=== PATIENT | male | born 1985 | race Caucasian/White ===

== ENCOUNTER 2018-02-08 14:38 | Emergency (ER) | payer OTHER, SELFPAY ==
[2018-02-08] MEDS ORDERED: NA CHLORIDE 0.9% 1,000 ML ONE ×2 (15:00→17:40)
[2018-02-08] MEDS ORDERED: ONDANSETRON 4 MG/2 ML VIAL ONE (15:00)
[2018-02-08 15:38] LABS: Bicarbonate 22 mEq/L (21-31); Glucose Level 101 mg/dL (65-120); Lipase 20 U/L (22-51); Potassium 3.5 mEq/L (3.6-5.0); Sodium Level 134 mEq/L (135-145)
[2018-02-08 15:44] LABS: ALT/SGPT 64 IU/L (10-60); AST/SGOT 36 IU/L (10-42); Albumin 4.4 g/dL (3.2-5.5); Alkaline Phosphatase 75 IU/L (42-121); BUN Blood Urea Nitrogen 15 mg/dL (6-20); Bilirubin Direct 0.2 mg/dL (0-0.2); Bilirubin Total 0.9 mg/dL (0.3-1.2); Protein, Total 8.1 g/dL (6.0-8.3)
[2018-02-08 16:04] LABS: Urine Blood NEGATIVE (NEG); Urine Glucose NEGATIVE (NEG); Urine Protein TRACE (NEG); Urine Specific Gravity >1.030 (1.005-1.030); Urine pH 5.5 (5.0-7.0)
[2018-02-08 16:06] LABS: Urine Bacteria <20 /HPF (NONE SEEN); Urine Culture Reflex Order NOT NEEDED; Urine RBC <5 /HPF (NONE SEEN)
[2018-02-08 16:17] LABS: Absolute Lymphocytes (CBC) 0.5 K/uL (0.7-4.9); Absolute Monocytes 0.4 K/uL (0.1-1.3); Absolute Neutrophil 10.3 K/uL (1.8-8.0); Basophils % 0.5 % (0-1.3); Eosinophils % 0.5 % (0-4.4); Hematocrit 51.4 % (39.6-49.0); Lymphocytes % 4.1 % (15.3-44.8); MCH 30.3 pg (27.0-35.0); MCV 89.1 fL (80-100); Monocytes % 3.6 % (3.3-12.3); RBC Red Blood Cell Count 5.76 M/uL (4.33-5.43)
[2018-02-08] MEDS ORDERED: MEPERIDINE HCL 25 MG/0.5 ML ONE (16:42)
--- NOTE | 2018-02-08 17:12 | RAD REPORT ---
EXAM DESCRIPTION: CT - Abdomen Pelvis W Contrast - 02/08/2018 5:03 pm CLINICAL HISTORY: Abdominal pain. Right lower quadrant and right upper quadrant pain since 2 a.m. t his morning with vomiting COMPARISON: None. TECHNIQUE: Computed axial tomography of the abdomen and pelvis was obtained. 100 cc Isovue-300 is ad ministered intravenously. Oral contrast was given. All CT scans are performed using dose optimization technique as appropriate and may include automated exposure control or mA/KV adjustment according to patient size. FINDINGS: The liver, spleen, pancreas, adrenals and kidneys appear unremarkable. The appendix is normal caliber. There is no evidence of diverticulitis A small left inguinal hernia contains fat Contrast within the esophagus probably indicates GE reflux IMPRESSION: Gastroesophageal reflux is suspected
[2018-02-08] MEDS ORDERED: MAGNE/ALUM HYDROXD 30 ML UCUP ONE (17:40)
--- NOTE | 2018-02-08 17:40 | ER ---
Nurse's Notes [facility] Name: Jose R Villela Age: 32 yrs Sex: Male : 1985 Arrival Date: 02/08/2018 Time: 14:42 Bed 7 Private MD: Jv Hurt T Diagnosis: Gastro-esophageal reflux disease;Gastroenteritis;Dehydration Presentation: 02/08 14:54 Presenting complaint: Patient states: started having V/D about 2 am this morning, tw2 tightness/abdominal pain, have taken OTC pepto, immodium, and aspirin. Transition of care: patient was not received from another setting of care. Onset of symptoms was February 08, 2018. Risk Assessment: Do you want to hurt yourself or someone else? Patient reports no desire to harm self or others. Initial Sepsis Screen: Does the patient meet any 2 criteria? No. Patient's initial sepsis screen is negative. Does the patient have a suspected source of infection? No. Patient's initial sepsis screen is negative. Care prior to arrival: None. 14:54 Method Of Arrival: Ambulatory tw2 14:54 Acuity: LUIS 3 tw2 Historical: - Allergies: 15:00 No Known Allergies; tw2 - Home Meds: 15:00 None [Active]; tw2 - PSHx: 15:00 None; tw2 - Immunization history:: Adult Immunizations up to date. - Social history:: Smoking status: Patient uses tobacco products, smokes one-half pack cigarettes per day, chewing tobacco. - Ebola Screening: : Patient denies travel to an Ebola-affected area in the 21 days before illness onset. - Family history:: not pertinent. - Hospitalizations: : No recent hospitalization is reported. Screenin:00 Abuse screen: Denies threats or abuse. Nutritional screening: No deficits noted. tw2 Tuberculosis screening: No symptoms or risk factors identified. Fall Risk None identified. Assessment: 15:02 General: Appears in no apparent distress. obese, Behavior is calm, cooperative, tw2 appropriate for age. Pain: Complains of pain in abdomen. Neuro: Level of Consciousness is awake, alert, obeys commands, Oriented to person, place, time, situation. Cardiovascular: Denies chest pain, shortness of breath, Heart tones S1 S2 Capillary refill < 3 seconds Patient's skin is warm and dry. Respiratory: Airway is patent Respiratory effort is even, unlabored, Respiratory pattern is regular, symmetrical, Breath sounds are clear bilaterally. GI: Abdomen is round obese, Bowel sounds present X 4 quads. Abd is soft X 4 quads Abdomen is tender to palpation in right upper quadrant and right lower quadrant. : No signs and/or symptoms were reported regarding the genitourinary system. EENT: No signs and/or symptoms were reported regarding the EENT system. Derm: Skin is intact, is healthy with good turgor, Skin is diaphoretic, Skin temperature is warm. Musculoskeletal: Range of motion: intact in all extremities. 15:03 Reassessment: pt drank contrast at this time, [place], CT notified. tw2 15:52 Reassessment: Patient appears in no apparent distress at this time. No changes from tw2 previously documented assessment. Patient and/or family updated on plan of care and expected duration. Pain level reassessed. Patient is alert, oriented x 3, equal unlabored respirations, skin warm/dry/pink. 16:36 Reassessment: No changes from previously documented assessment. Patient and/or family tw2 updated on plan of care and expected duration. Pain level reassessed. Patient is alert, oriented x 3, equal unlabored respirations, skin warm/dry/pink. pt c/o "headache and can i get some aspirin or something", provider notified. 17:31 Reassessment: Patient appears in no apparent distress at this time. No changes from tw2 previously documented assessment. Patient and/or family updated on plan of care and expected duration. Pain level reassessed. Patient is alert, oriented x 3, equal unlabored respirations, skin warm/dry/pink. provider at bedside at this time. 18:19 Reassessment: Patient appears in no apparent distress at this time. No changes from tw2 previously documented assessment. Patient and/or family updated on plan of care and expected duration. Pain level reassessed. Patient is alert, oriented x 3, equal unlabored respirations, skin warm/dry/pink. Vital Signs: 14:56 BP 121 / 92; Pulse 106; Resp 18; Temp 99.1(O); Pulse Ox 97% on R/A; Weight 113.4 kg tw2 (R); Height 5 ft. 10 in. (177.80 cm) (R); Pain 7/10; 15:52 BP 115 / 57; Pulse 89; Resp 17; Pulse Ox 97% on R/A; tw2 16:36 BP 116 / 43; Pulse 88; Resp 17; Pulse Ox 98% ; tw2 17:32 BP 93 / 48; Pulse 93; Resp 18; Pulse Ox 98% on R/A; tw2 18:18 BP 114 / 63; Pulse 89; Resp 17; Pulse Ox 98% on R/A; tw2 14:56 Body Mass Index 35.87 (113.40 kg, 177.80 cm) tw2 ED Course: 13:05 Inserted saline lock: 22 gauge in left wrist, using aseptic technique. Blood collected. jp3 14:42 Patient arrived in ED. mr 14:43 Jv Hurt MD is Private Physician. mr 14:49 Alfredo Poole MD is Attending Physician. rn 14:49 Oneyda Soto RN is Primary Nurse. tw2 14:56 Triage completed. tw2 14:57 Arm band placed on. tw2 14:57 Placed in gown. Bed in low position. Adult w/ patient. Pulse ox on. NIBP on. tw2 15:03 No provider procedures requiring assistance completed. tw2 15:05 Initial lab(s) drawn, by me, sent to lab. jp3 15:50 Urine collected: clean catch specimen, cloudy, ramiro colored. jb1 17:[address] nj 17:03 CT completed. Patient tolerated procedure well. Patient moved back from [place]. nj 17:03 CT Abd/Pelvis - W/Contrast In Process Unspecified. EDMS 17:38 Jv Hurt MD is Referral Physician. rn 17:44 Awaiting: completion of IV fluids PRIOR to discharge. tw2 19:04 IV discontinued, intact, bleeding controlled, No redness/swelling at site. Pressure ak1 dressing applied. Administered Medications: 15:05 Drug: Zofran 4 mg Route: IVP; Site: left wrist; tw2 17:43 Follow up: Response: No adverse reaction tw2 15:07 Drug: NS 0.9% 1000 ml Route: IV; Rate: 1000 ml; Site: left wrist; tw2 16:20 Follow up: Response: No adverse reaction; IV Status: Completed infusion; IV Intake: tw2 1000ml 16:43 Drug: Demerol 25 mg Route: IVP; Site: left antecubital; tw2 17:43 Follow up: Response: No adverse reaction tw2 17:43 Follow up: Response: No adverse reaction; Pain is decreased tw2 17:43 Drug: NS 0.9% 1000 ml Route: IV; Rate: 1 bolus; Site: left wrist; tw2 19:00 Follow up: IV Status: Completed infusion; IV Intake: 1000ml tw2 17:43 Drug: GI Cocktail without - (Maalox Suspension 30 ml, Lidocaine Liquid 2 % 15 tw2 ml) Route: PO; 18:20 Follow up: Response: No adverse reaction tw2 Intake: 16:20 IV: 1000ml; Total: 1000ml. tw2 19:00 IV: 1000ml; Total: 2000ml. tw2 Outcome: 17:39 Discharge ordered by . rn 19:04 Discharged to home ambulatory, with family. ak1 19:04 Condition: improved 19:04 Discharge instructions given to patient, family, Instructed on discharge instructions, follow up and referral plans. medication usage, Demonstrated understanding of instructions, follow-up care, medications, Prescriptions given X 1. 19:05 Patient left the ED. ak1 Signatures: Dispatcher [employer] EDMS George Montesinos Maria mr Nieto, Roman, MD MD rn Krenek, Amber, RN RN ak1 Oneyda Soto RN RN tw2 Jarrell Harrison Jacob jp3
--- NOTE | 2018-02-08 17:40 | EDPHYS ---
Physician Documentation [facility] Name: Jose R Villela Age: 32 yrs Sex: Male : 1985 Arrival Date: 02/08/2018 Time: 14:42 Bed 7 Private MD: Jv Hurt T ED Physician Alfredo Poole HPI: 02/08 15:14 This 32 yrs old Male presents to ER via Ambulatory with complaints of rn Abdominal Pain, Vomiting/Diarrhea. 15:14 The patient presents to the emergency department with nausea, vomiting, diarrhea, rn abdominal pain. 15:14 Onset: The symptoms/episode began/occurred this morning. Possible causes: unknown. The rn symptoms are aggravated by nothing. The symptoms are alleviated by nothing. Severity of symptoms: At their worst the symptoms were moderate in the emergency department the symptoms are unchanged. The patient has not experienced similar symptoms in the past. The patient has not recently seen a physician. Historical: - Allergies: 15:00 No Known Allergies; tw2 - Home Meds: 15:00 None [Active]; tw2 - PSHx: 15:00 None; tw2 - Immunization history:: Adult Immunizations up to date. - Social history:: Smoking status: Patient uses tobacco products, smokes one-half pack cigarettes per day, chewing tobacco. - Ebola Screening: : Patient denies travel to an Ebola-affected area in the 21 days before illness onset. - Family history:: not pertinent. - Hospitalizations: : No recent hospitalization is reported. ROS: 15:14 Constitutional: Negative for fever, chills, and weight loss, Eyes: Negative for injury, rn pain, redness, and discharge, Cardiovascular: Negative for chest pain, palpitations, and edema, Respiratory: Negative for shortness of breath, cough, wheezing, and pleuritic chest pain, Abdomen/GI: + abd pain/nausea/vomiting/diarrhea MS/Extremity: Negative for injury and deformity, Skin: Negative for injury, rash, and discoloration, Neuro: Negative for headache, weakness, numbness, tingling, and seizure. 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 Eyes: Pupils equal round and reactive to light, extra-ocular motions intact. Lids and lashes normal. Conjunctiva and sclera are non-icteric and not injected. Cornea within normal limits. Periorbital areas with no swelling, redness, or edema. Cardiovascular: Regular rate and rhythm with a normal S1 and S2. No gallops, murmurs, or rubs. Normal PMI, no JVD. No pulse deficits. Respiratory: Lungs have equal breath sounds bilaterally, clear to auscultation and percussion. No rales, rhonchi or wheezes noted. No increased work of breathing, no retractions or nasal flaring. Abdomen/GI: soft, + RLQ tenderness, no rebound/masses MS/ Extremity: Pulses equal, no cyanosis. Neurovascular intact. Full, normal range of motion. Equal circumference. Neuro: Awake and alert, GCS 15, oriented to person, place, time, and situation. Cranial nerves II-XII grossly intact. Motor strength 5/5 in all extremities. Sensory grossly intact. Cerebellar exam normal. Normal gait. Vital Signs: 14:56 BP 121 / 92; Pulse 106; Resp 18; Temp 99.1(O); Pulse Ox 97% on R/A; Weight 113.4 kg tw2 (R); Height 5 ft. 10 in. (177.80 cm) (R); Pain 7/10; 15:52 BP 115 / 57; Pulse 89; Resp 17; Pulse Ox 97% on R/A; tw2 16:36 BP 116 / 43; Pulse 88; Resp 17; Pulse Ox 98% ; tw2 17:32 BP 93 / 48; Pulse 93; Resp 18; Pulse Ox 98% on R/A; tw2 18:18 BP 114 / 63; Pulse 89; Resp 17; Pulse Ox 98% on R/A; tw2 14:56 Body Mass Index 35.87 (113.40 kg, 177.80 cm) tw2 MDM: 14:49 Patient medically screened. rn 17:38 Differential diagnosis: Nonspecific abd pain, gastritis, appendicitis, diverticulitis, rn viral gastroenteritis, gastroenteritis. Data reviewed: vital signs, nurses notes, lab test result(s), radiologic studies, CT scan. Counseling: I had a detailed discussion with the patient and/or guardian regarding: the historical points, exam findings, and any diagnostic results supporting the discharge/admit diagnosis, lab results, radiology results, the need for outpatient follow up, to return to the emergency department if symptoms worsen or persist or if there are any questions or concerns that arise at home. Response to treatment: the patient's symptoms have mildly improved after treatment, and as a result, I will discharge patient. Special discussion: Based on the patient's Hx, exam, and Dx evaluation, there is no indication for emergent surgery or inpatient Tx. It is understood by the patient/guardian that if the Sx's persist or worsen they need to return immediately for re-evaluation. I discussed with the patient/guardian in detail that at this point there is no indication for admission to the hospital. It is understood, however, that if the symptoms persist or worsen the patient needs to return immediately for re-evaluation. 02/08 14:54 Order name: Basic Metabolic Panel; Complete Time: 16:31 02/08 14:54 Order name: CBC with Diff; Complete Time: 16:55 rn 02/08 14:54 Order name: Hepatic Function; Complete Time: 16:31 02/08 14:54 Order name: Lipase; Complete Time: 16:31 02/08 14:54 Order name: Urine Microscopic Only; Complete Time: 16: rn 02/08 15:51 Order name: Urine Dipstick--Ancillary (enter results); Complete Time: 16:31 02/08 14:54 Order name: IV Saline Lock; Complete Time: 15:09 rn 02/08 14:54 Order name: Labs collected and sent; Complete Time: 15:09 rn 02/08 14:54 Order name: CT Abd/Pelvis - W/Contrast; Complete Time: 17:13 rn 02/08 14:54 Order name: Urine Dipstick-Ancillary (obtain specimen); Complete Time: 15:45 rn Administered Medications: 15:05 Drug: Zofran 4 mg Route: IVP; Site: left wrist; tw2 17:43 Follow up: Response: No adverse reaction tw2 15:07 Drug: NS 0.9% 1000 ml Route: IV; Rate: 1000 ml; Site: left wrist; tw2 16:20 Follow up: Response: No adverse reaction; IV Status: Completed infusion; IV Intake: tw2 1000ml 16:43 Drug: Demerol 25 mg Route: IVP; Site: left antecubital; tw2 17:43 Follow up: Response: No adverse reaction tw2 17:43 Follow up: Response: No adverse reaction; Pain is decreased tw2 17:43 Drug: NS 0.9% 1000 ml Route: IV; Rate: 1 bolus; Site: left wrist; tw2 19:00 Follow up: IV Status: Completed infusion; IV Intake: 1000ml tw2 17:43 Drug: GI Cocktail without - (Maalox Suspension 30 ml, Lidocaine Liquid 2 % 15 tw2 ml) Route: PO; 18:20 Follow up: Response: No adverse reaction tw2 Disposition: 02/08/18 17:39 Discharged to Home. Impression: Gastro-esophageal reflux disease, Gastroenteritis, Dehydration. - Condition is Stable. - Discharge Instructions: Dehydration, Adult, Gastroesophageal Reflux Disease, Adult, Viral Gastroenteritis. - Prescriptions for Zofran ODT 4 mg Oral tablet,disintegrating - place 1 tablet by TRANSLINGUAL route every 8 hours As needed; 20 tablet. - Medication Reconciliation Form, Thank You Letter, Antibiotic Education, Prescription Opioid Use form. - Follow up: Jv Hurt MD; When: 5 - 6 days; Reason: Recheck today's complaints, Re-evaluation by your physician. - Problem is new. - Symptoms have improved. Signatures: Dispatcher [employer] EDMS Alfredo Poole MD MD rn Krenek, Amber, RN RN ak1 Oneyda Soto RN RN tw2 Corrections: (The following items were deleted from the chart) 17:40 17:39 02/08/2018 17:39 Discharged to Home. Impression: Gastro-esophageal reflux rn disease; Gastroenteritis. Condition is Stable. Forms are Medication Reconciliation Form, Thank You Letter, Antibiotic Education, Prescription Opioid Use. Follow up: Jv Hurt; When: 5 - 6 days; Reason: Recheck today's complaints, Re-evaluation by your physician. Problem is new. Symptoms have improved. rn 19:05 17:40 02/08/2018 17:39 Discharged to Home. Impression: Gastro-esophageal reflux ak1 disease; Gastroenteritis; Dehydration. Condition is Stable. Forms are Medication Reconciliation Form, Thank You Letter, Antibiotic Education, Prescription Opioid Use. Follow up: Jv Hurt; When: 5 - 6 days; Reason: Recheck today's complaints, Re-evaluation by your physician. Problem is new. Symptoms have improved. rn
[2018-02-08] MEDS ORDERED: LIDOCAINE VISCOUS 2% SOLN 15 ML UDC ONE (17:41)
[2018-02-08 19:09] VITALS: TEMP 99.1
[2018-02-08 19:10] VITALS: O2SAT 98
[2018-02-08 19:13] VITALS: BP 114/63
== END 2018-02-08 19:05 | disposition home or self-care (01) ==
LOC: ER 14:38
DX: R11.2 Nausea with vomiting, unspecified (principal); K21.9 Gastro-esophageal reflux disease without esophagitis; K52.9 Noninfective gastroenteritis and colitis, unspecified; E86.0 Dehydration; F17.210 Nicotine dependence, cigarettes, uncomplicated
CPT/HCPCS: 36415; 74177; 80048; 80076; 81003; 81015; 83690; 85025; 99284; J2175; J2405; J7030; Q9967

== ENCOUNTER 2018-07-21 20:03 | Observation (INO) | payer OTHER, SELFPAY ==
[2018-07-21 20:33] LABS: Absolute Lymphocytes (CBC) 3.1 K/uL (0.7-4.9); Absolute Monocytes 0.5 K/uL (0.1-1.3); Absolute Neutrophil 5.4 K/uL (1.8-8.0); Basophils % 0.4 % (0-1.3); Eosinophils % 1.5 % (0-4.4); Hematocrit 45.3 % (39.6-49.0); Lymphocytes % 34.2 % (15.3-44.8); MCH 31.8 pg (27.0-35.0); MPV 7.9 fL (7.6-11.3); Monocytes % 5.3 % (3.3-12.3); RBC Red Blood Cell Count 5.04 M/uL (4.33-5.43)
[2018-07-21 20:45] LABS: Protime INR 0.92
[2018-07-21] MEDS ORDERED: NITROGLYCERIN 0.4 MG/TAB SL ONE (20:52)
[2018-07-21] MEDS ORDERED: ASPIRIN 81 MG CHEWABLE TABLET ONE (20:52)
[2018-07-21 20:55] LABS: ALT/SGPT 62 U/L (12-78); AST/SGOT 33 U/L (15-37); Alkaline Phosphatase 95 U/L (45-117); BUN Blood Urea Nitrogen 9 mg/dL (7-18); Bicarbonate 25 mmol/L (21-32); Bilirubin Direct < 0.1 mg/dL (0-0.2); Bilirubin Total 0.2 mg/dL (0.2-1.0); Glucose Level 120 mg/dL (74-106); NT PRO-BNP 46 pg/mL (<125); Potassium 3.3 mmol/L (3.5-5.1); Protein, Total 7.4 g/dL (6.4-8.2); Sodium Level 142 mmol/L (136-145); Troponin (Emerg Dept Use Only) < 0.02 ng/mL (0.0-0.045)
--- NOTE | 2018-07-21 21:45 | EDPHYS ---
Physician Documentation [facility] Name: Jose R Villela Age: 32 yrs Sex: Male : 1985 Arrival Date: 07/21/2018 Time: 20:04 Bed 25 Private MD: Jv Hurt T ED Physician Grisel Osman HPI: 07/21 20:55 This 32 yrs old Male presents to ER via Ambulatory with complaints of Chest ma2 Pain. 20:55 The patient or guardian reports chest pain that is located primarily in the substernal ma2 area. The pain radiates to the left arm. Associated signs and symptoms: Pertinent negatives:. The chest pain is described as burning. Duration: The patient or guardian reports a single episode. Severity of pain: At its worst the pain was moderate in the emergency department the pain has improved. Historical: - Allergies: 20:33 No Known Allergies; tl2 - Home Meds: 20:33 None [Active]; tl2 - PMHx: 20:33 None; tl2 - PSHx: 20:33 None; tl2 - Immunization history:: Adult Immunizations up to date. - Social history:: Smoking status: Patient uses tobacco products, smokes one-half pack cigarettes per day, Smoking status: Patient uses tobacco products, Patient uses Patient/guardian denies using alcohol, street drugs, The patient lives with family. - Ebola Screening: : No symptoms or risks identified at this time. - Family history:: Mother has/had heart disease. - Hospitalizations: : No recent hospitalization is reported. ROS: 20:55 Constitutional: Negative for fever, chills, and weight loss. ma2 20:55 Cardiovascular: Positive for chest pain, Negative for edema, orthopnea, palpitations. 20:55 All other systems are negative. Exam: 20:55 Constitutional: This is a well developed, well nourished patient who is awake, alert, ma2 and in no acute distress. Chest/axilla: Normal chest wall appearance and motion. Nontender with no deformity. No lesions are appreciated. Cardiovascular: Regular rate and rhythm with a normal S1 and S2. No gallops, murmurs, or rubs. Normal PMI, no JVD. No pulse deficits. Respiratory: Lungs have equal breath sounds bilaterally, clear to auscultation and percussion. No rales, rhonchi or wheezes noted. No increased work of breathing, no retractions or nasal flaring. Abdomen/GI: Soft, non-tender, with normal bowel sounds. No distension or tympany. No guarding or rebound. No evidence of tenderness throughout. Neuro: Awake and alert, GCS 15, oriented to person, place, time, and situation. Cranial nerves II-XII grossly intact. Motor strength 5/5 in all extremities. Sensory grossly intact. Cerebellar exam normal. Normal gait. Vital Signs: 20:33 BP 133 / 83; Pulse 93; Resp 20; Temp 98.6(O); Pulse Ox 98% on R/A; Weight 120.2 kg; tl2 Height 5 ft. 10 in. (177.80 cm); Pain 8/10; 21:21 BP 141 / 82; Pulse 85; Resp 18; Pulse Ox 98% on R/A; Pain 4/10; tl2 20:33 Body Mass Index 38.02 (120.20 kg, 177.80 cm) tl2 MDM: 20:07 Patient medically screened. ma2 20:55 Differential diagnosis: abnormal EKG, acute myocardial infarction, acute pericarditis, ma2 anxiety, coronary artery disease gastroesophageal reflux disease (GERD). PABLITO Risk Score: 1 - Three or more CAD risk factors, [Family Hx], [HTN], [Active Smoker]. 21:41 Data reviewed: vital signs, nurses notes, lab test result(s), EKG, radiologic studies. ma2 Counseling: I had a detailed discussion with the patient and/or guardian regarding: the historical points, exam findings, and any diagnostic results supporting the discharge/admit diagnosis, the presence of at least one elevated blood pressure reading (>120/80) during this emergency department visit, the need for further work-up and treatment in the hospital. ED course: discussed with dr. zarate, he advised to admit to the hospitalist . 07/21 20:16 Order name: Basic Metabolic Panel; Complete Time: 21:14 ar2 07/21 20:16 Order name: CBC with Diff; Complete Time: 21:14 ar2 07/21 20:16 Order name: LFT's; Complete Time: 21:14 ar2 07/21 20:16 Order name: Magnesium; Complete Time: 21:14 ar2 07/21 20:16 Order name: NT PRO-BNP; Complete Time: 21:14 [facility] 07/21 20:16 Order name: PT-INR; Complete Time: 21:14 [facility] 07/21 20:16 Order name: Troponin (emerg Dept Use Only); Complete Time: 21:14 [facility] 07/21 20:16 Order name: XRAY Chest (1 view) [facility] 07/21 21:58 Order name: Troponin I: at 11 pm please [facility] 07/22 05:16 Order name: Basic Metabolic Panel [facility] 07/22 05:16 Order name: Lipid Profile [facility] 07/22 05:23 Order name: CBC with Automated Diff [facility] 07/22 10:21 Order name: Troponin I [facility] 07/21 20:16 Order name: EKG; Complete Time: 20:17 [facility] 07/21 20:16 Order name: Cardiac monitoring; Complete Time: 20:30 [facility] 07/21 20:16 Order name: EKG - Nurse/Tech; Complete Time: 20:30 [facility] 07/21 20:16 Order name: IV Saline Lock; Complete Time: 20:30 [facility] 07/21 20:16 Order name: Labs collected and sent; Complete Time: 20:30 [facility] 07/21 20:16 Order name: O2 Per Protocol; Complete Time: 20:30 [facility] 07/21 20:16 Order name: O2 Sat Monitoring; Complete Time: 20:30 ma2 Administered Medications: 20:47 Drug: Aspirin Chewable Tablet 324 mg Route: PO; tl2 21:00 Follow up: Response: No adverse reaction tl2 20:47 Drug: Nitroglycerin 0.4 mg Route: Sublingual; 2 07/22 00:30 Drug: Nitroglycerin 0.4 mg Route: Sublingual; tl2 00:30 Follow up: Response: No adverse reaction; Pain is decreased tl2 Disposition: 07/21/18 21:43 Hospitalization ordered by Grisel Torres for Observation. Preliminary diagnosis is Chest pain, unspecified. - Bed requested for Telemetry/MedSurg (observation). - Status is Observation. iw - Condition is Stable. - Problem is new. - Symptoms are unchanged. UTI on Admission? No Signatures: Dispatcher [employer] [facility] Dorothy Sweeney RN RN Lillian Jean Baptiste RN RN Chloe Barnett RN RN tl2 Grisel Osman MD MD ma2 Corrections: (The following items were deleted from the chart) 07/21 21:48 21:43 Hospitalization Ordered by Grisel Torres MD for Observation. Preliminary dw diagnosis is Chest pain, unspecified. Bed requested for Telemetry/MedSurg (observation). Status is Observation. Condition is Stable. Problem is new. Symptoms are unchanged. UTI on Admission? No. ma2 07/22 10:47 07/21 21:48 07/21/2018 21:43 Hospitalization Ordered by Grisel Torres MD for dw Observation. Preliminary diagnosis is Chest pain, unspecified. Bed requested for [facility] ER HOLD. Status is Observation. Condition is Stable. Problem is new. Symptoms are unchanged. UTI on Admission? No. dw 07/22 11: 10:47 07/21/2018 21:43 Hospitalization Ordered by Grisel Torres MD for Observation. iw Preliminary diagnosis is Chest pain, unspecified. Bed requested for Telemetry/MedSurg (observation). Status is Observation. Condition is Stable. Problem is new. Symptoms are unchanged. UTI on Admission? No. dw
--- NOTE | 2018-07-21 21:45 | ER ---
Nurse's Notes [facility] Name: Jose R Villela Age: 32 yrs Sex: Male : 1985 Arrival Date: 07/21/2018 Time: 20:04 Bed 25 Private MD: Jv Hurt T Diagnosis: Chest pain, unspecified Presentation: 07/21 20:31 Presenting complaint: Patient states: L chest pain started about 10 mins prior to tl2 arrival. Radiates to left shoulder. Reported dizziness and nausea. Transition of care: patient was not received from another setting of care. Onset of symptoms was July 21, 2018 at 20:00. Risk Assessment: Do you want to hurt yourself or someone else? Patient reports no desire to harm self or others. Initial Sepsis Screen: Does the patient meet any 2 criteria? No. Patient's initial sepsis screen is negative. Does the patient have a suspected source of infection? No. Patient's initial sepsis screen is negative. Care prior to arrival: None. 20:31 Method Of Arrival: Ambulatory tl2 20:31 Acuity: LUIS 3 tl2 Triage Assessment: 20:33 General: Appears in no apparent distress. uncomfortable, Behavior is calm, cooperative, tl2 appropriate for age. Pain: Complains of pain in anterior aspect of left upper chest and left breast Pain radiates to left shoulder. Neuro: Level of Consciousness is awake, alert, obeys commands, Oriented to person, place, time, situation, Reports dizziness. Cardiovascular: Reports chest pain, lightheadedness, nausea, Heart tones S1 S2 present Rhythm is sinus rhythm. Respiratory: Airway is patent Respiratory effort is even, unlabored, Respiratory pattern is regular, symmetrical. GI: Reports nausea. : No signs and/or symptoms were reported regarding the genitourinary system. Derm: Skin is pink, warm \T\ dry. Historical: - Allergies: 20:33 No Known Allergies; tl2 - Home Meds: 20:33 None [Active]; tl2 - PMHx: 20:33 None; tl2 - PSHx: 20:33 None; tl2 - Immunization history:: Adult Immunizations up to date. - Social history:: Smoking status: Patient uses tobacco products, smokes one-half pack cigarettes per day, Smoking status: Patient uses tobacco products, Patient uses Patient/guardian denies using alcohol, street drugs, The patient lives with family. - Ebola Screening: : No symptoms or risks identified at this time. - Family history:: Mother has/had heart disease. - Hospitalizations: : No recent hospitalization is reported. Screenin:37 Abuse screen: Denies threats or abuse. Nutritional screening: No deficits noted. tl2 Tuberculosis screening: No symptoms or risk factors identified. Fall Risk None identified. Assessment: 20:38 General: see triage assessment. tl2 20:38 Pain: Pain began suddenly, 10 mins [employer]. tl2 21:21 Reassessment: Patient appears in no apparent distress at this time. Patient and/or tl2 family updated on plan of care and expected duration. Pain level reassessed. Patient is alert, oriented x 3, equal unlabored respirations, skin warm/dry/pink. MD at bedside. Will repeat cardiac enzymes in 4 hours Patient states feeling better. Vital Signs: 20:33 BP 133 / 83; Pulse 93; Resp 20; Temp 98.6(O); Pulse Ox 98% on R/A; Weight 120.2 kg; tl2 Height 5 ft. 10 in. (177.80 cm); Pain 8/10; 21:21 BP 141 / 82; Pulse 85; Resp 18; Pulse Ox 98% on R/A; Pain 4/10; tl2 20:33 Body Mass Index 38.02 (120.20 kg, 177.80 cm) tl2 ED Course: 20:04 Patient arrived in ED. dl4 20:05 Jv Hurt MD is Private Physician. dl4 20:07 Grisel Osman MD is Attending Physician. ma2 20:29 Chloe Barnett, KEM is Primary Nurse. tl2 20:33 Triage completed. tl2 20:33 Arm band placed on right wrist. tl2 20:37 EKG completed in triage. Results shown to MD. tl2 20:37 Inserted saline lock: 22 gauge in left antecubital area, using aseptic technique. Blood tl2 collected. Patient maintains SpO2 saturation greater than 95% on room air. 21:00 X-ray completed. Portable x-ray completed in exam room. Patient tolerated procedure kp1 well. 21:01 XRAY Chest (1 view) In Process Unspecified. EDMS 21:22 Patient has correct armband on for positive identification. Placed in gown. Bed in low tl2 position. Call light in reach. Side rails up X 1. rn admissions on. Pulse ox on. NIBP on. :43 Grisel Torres MD is Hospitalizing Provider. ma2 22:00 No provider procedures requiring assistance completed. Patient admitted, IV remains in tl2 place. Administered Medications: 20:47 Drug: Aspirin Chewable Tablet 324 mg Route: PO; tl2 21:00 Follow up: Response: No adverse reaction tl2 20:47 Drug: Nitroglycerin 0.4 mg Route: Sublingual; tl2 07/22 00:30 Drug: Nitroglycerin 0.4 mg Route: Sublingual; tl2 00:30 Follow up: Response: No adverse reaction; Pain is decreased tl2 Outcome: 07/21 21:43 Decision to Hospitalize by Provider. ma2 : Admitted to ER Hold. Please see [facility] for further documentation. tl2 22:00 Condition: stable 22:00 Discharge instructions given to patient, Instructed on the need for admit. 07/22 11:24 Patient left the ED. iw Signatures: Dispatcher [employer] EDLillian Machado RN RN iw Chloe Barnett RN RN tl2 Roxann Gaytan kp1 Grisel Osman MD MD ma2 Jv Carvajal dl4 Corrections: (The following items were deleted from the chart) 07/21 21:33 21:21 Reassessment: Patient appears in no apparent distress at this time. Patient tl2 and/or family updated on plan of care and expected duration. Pain level reassessed. Patient is alert, oriented x 3, equal unlabored respirations, skin warm/dry/pink. MD at bedside. Will repeat cardiac enzymes Patient states feeling better. tl2
--- NOTE | 2018-07-21 22:07 | RAD REPORT ---
EXAM DESCRIPTION: RAD - Chest Single View - 07/21/2018 9:01 pm CLINICAL HISTORY: Chest pain COMPARISON: April 2009 TECHNIQUE: AP portable chest image was obtained 4 hours . FINDINGS: Lungs are clear. Heart and vasculature are normal. No measurable pleural effusion and no p neumothorax. No acute bony abnormality seen. No acute aortic findings suspected. IMPRESSION: No acute cardiopulmonary process. No significant interval change.
[2018-07-21 23:35] VITALS: BMI 38.0
[2018-07-21] MEDS ORDERED: ACETAMINOPHEN 500 MG TAB PO PRN (23:45)
[2018-07-21] MEDS ORDERED: ALPRAZOLAM 0.25 MG TABLET PO PRN (23:45)
[2018-07-22] MEDS ORDERED: MORPHINE 4 MG/ML SYR ONE ×2 (01:55→06:37)
[2018-07-22] MEDS: MORPHINE 4 MG/ML SYR IV PRN ×5 (02:20→23:32)
[2018-07-22 05:15] LABS: Potassium 3.7 mmol/L (3.5-5.1)
[2018-07-22 05:21] LABS: Absolute Lymphocytes (CBC) 3.6 K/uL (0.7-4.9); Absolute Monocytes 0.6 K/uL (0.1-1.3); Absolute Neutrophil 4.3 K/uL (1.8-8.0); Basophils % 0.5 % (0-1.3); Eosinophils % 2.4 % (0-4.4); Hematocrit 42.6 % (39.6-49.0); Lymphocytes % 41.2 % (15.3-44.8); MCH 31.6 pg (27.0-35.0); MCV 88.7 fL (80-100); MPV 8.3 fL (7.6-11.3); Monocytes % 6.8 % (3.3-12.3)
--- NOTE | 2018-07-22 06:08 | EKG ---
Test Date: 2018-07-21 Test Time: 20:13:36 Lithographers Printer: GISSELL MEASUREMENT RESULTS: Intervals: Rate: 91 NM: 176 QRSD: 100 QT: 350 QTc: 430 [place]: P: 45 NM: 176 QRS: 9 T: 56 INTERPRETIVE STATEMENTS: Normal sinus rhythm Normal ECG Compared to ECG 05/31/2016 20:50:28 No significant changes Electronically Signed On 07-22-18 06:08:16 BLINDSTITCH MACHINE OPERATOR by Scooter Moss
[2018-07-22] MEDS: ENOXAPARIN 40 MG/0.4 ML SQ SCH (09:00)
[2018-07-22] MEDS: METOPROLOL TAR 50 MG TAB PO SCH ×2 (09:00→21:22)
[2018-07-22] MEDS: ASPIRIN EC 81 MG TAB PO SCH (09:00)
[2018-07-22] MEDS ORDERED: ASPIRIN 81 MG CHEWABLE TABLET ONE (09:08)
[2018-07-22] MEDS ORDERED: ENOXAPARIN 40 MG/0.4 ML SQ ONE (09:08)
[2018-07-22] MEDS ORDERED: METOPROLOL TAR 25 MG TAB ONE (09:08)
[2018-07-22] MEDS ORDERED: MORPHINE 2 MG/ML SYR ONE ×2 (11:24→11:25)
--- NOTE | 2018-07-22 11:43 | CON ---
CARDIOLOGY CONSULT Chief Complaint: Chest pain. History Of Present Illness: Mr. Villela had chest pain. He was driving and occurred in his left p ectoral muscle, then later left shoulder, shoulder blade, and upper arm. There was sweating and shor tness of breath and fear associated with it. Mr. Villela came to our ER for EKGs and enzymes are a ll normal. Mr. Villela has never had any vascular disease himself. He is very concerned that he m ight get it because most of his family members have had heart trouble or young from it. The pat hans takes no medications. Reports no allergies. He is a cigarette smoker. He has agreed to quit, Chantix help him quit a couple of years ago and then he resumed smoking. Physical Examination: General: He is 5 feet 10 inches, 265 pounds, obese, alert, oriented, pleasant, not in distress. Lungs: Clear. Carotids: No bruit. Cardiac: Normal. Abdomen: Soft. Extremities: Normal. EKG normal. Laboratory Data: Reveals total cholesterol 175, LDL is 97, HDL is 32, blood sugars 120 and 100. Tro ponins all normal. Liver functions normal. Impression: Mr. Villela probably is not having an acute coronary syndrome. I have recommended we do a nuclear stress test and echocardiogram before we let him go home. LAVERNE Voice ID: [id number] Report ID: [id number]
--- NOTE | 2018-07-22 13:03 | P.HP ---
Certification for Inpatient Patient admitted to: Observation With expected LOS: <2 Midnights Patient will require the following post-hospital care: None Practitioner: I am a practitioner with admitting privileges, knowledge of patient current condition, hospital course, and medical plan of care. Services: Services provided to patient in accordance with Admission requirements found in Title 42 Section 412.3 of the Code of Federal Regulations Patient History Date of Service: 07/21/18 History of Present Illness: Patient is a 32-year-old gentleman who came to the hospital with chest pain. Pain was mainly in the sternal region radiated to his left arm. Patient was diaphoretic and nauseated. Patient also got short of breath. Patient has never had symptoms like this before. He came into the ER for further evaluation. His troponins and EKG have been negative. He will be admission for further evaluation. He does have a strong family history of his mother passing away at 35 with heart disease. He is in his 30s now and we need to go ahead and make sure he is not at risk of early from cardiac disease. Allergies No Known Allergies Allergy (Uncoded 05/31/16 23:48) Unknown Home Medications: NK [No Home Meds] 07/21/18 - Past Medical/Surgical History Diabetic: No Past Medical History: Patient denies medical history Past Surgical History: Patient denies surgical history - Family History Father Family History: Reviewed- Non-Contributory Mother Medical History: Heart disease ( at 35) - Social History Smoking Status: Current every day smoker Alcohol use: No CD- Drugs: No Caffeine use: Yes Place of Residence: Home Review of Systems 10-point ROS is otherwise unremarkable Physical Examination - Vital Signs Temperature: 97.4 F Blood Pressure: 132/77 Pulse: 63 Respirations: 20 Pulse Ox (%): 97 - Physical Exam General: Alert, In no apparent distress, Oriented x3 HEENT: Atraumatic, PERRLA, Mucous membr. moist/pink, EOMI, Sclerae nonicteric Neck: Supple, 2+ carotid pulse no bruit, No LAD, Without JVD or thyroid abnormality Respiratory: Clear to auscultation bilaterally, Normal air movement Cardiovascular: Regular rate/rhythm, Normal S1 S2, No murmurs Gastrointestinal: Normal bowel sounds, Soft and benign, Non-distended, No tenderness Musculoskeletal: No clubbing, No swelling, No tenderness Integumentary: No rashes Neurological: Normal gait, Normal speech, Normal strength at 5/5 x4 extr, Normal tone, Sensation intact, Cranial nerves 3-12 intact, Normal affect Lymphatics: No axilla or inguinal lymphadenopathy - Studies Laboratory Data (last 24 hrs) 07/21/18 20:23: PT 10.9, INR 0.92 07/21/18 20:23: WBC 9.1, Hgb 16.0, Hct 45.3, Plt Count 231 07/21/18 20:23: Sodium 142, Potassium 3.3 L, BUN 9, Creatinine 1.20, Glucose 120 H, Magnesium 2.0, Total Bilirubin 0.2, AST 33, ALT 62, Alkaline Phosphatase 95 Assessment & Plan - Problems (Diagnosis) (1) Chest pain, rule out acute myocardial infarction Current Visit: Yes Status: Acute - Plan 1. Serial troponins and EKG 2. Cardiology consultation 3. Echocardiogram and inpatient stress test(pending cardiology evaluation) 4. Anti-platelet therapy, anti coagulation, beta-harish, statin, and O2 as needed 5. IV morphine for pain 6. Nitro p.r.n. 7. GI/DVt prophylaxis Discharge Plan: Home Plan to discharge in: 48 Hours - Advance Directives Does patient have a Living Will: No Does patient have a Durable POA for Healthcare: No - Code Status/Comfort Care Code Status Assessed: Yes Code Status: Full Code Critical Care: No Time Spent Managing PTS Care (In Minutes): 50
[2018-07-22 13:21] LABS: Urine Appearance CLEAR; Urine Bilirubin NEGATIVE (NEG); Urine Blood NEGATIVE (NEG); Urine Color YELLOW; Urine Glucose NEGATIVE (NEG); Urine Microscopic Reflex NO UMIC; Urine Protein NEGATIVE (NEG); Urine Specific Gravity <=1.005 (1.005-1.030); Urine Urobilinogen 0.2 mg/dL (0.2-1.0); Urine pH 7.5 (5.0-7.0)
--- NOTE | 2018-07-22 17:07 | P.PN ---
Subjective Date of Service: 07/22/18 Subjective: No new changes, No C/O voiced Patient seen and examined at bedside. No family at bedside. Case discussed with nursing staff. Review of Systems As noted Physical Examination - Vital Signs Temperature: 97.4 F Blood Pressure: 132/77 Pulse: 63 Respirations: 20 Pulse Ox (%): 97 - Physical Exam General: Alert, In no apparent distress, Oriented x3 HEENT: Atraumatic, PERRLA, EOMI Neck: Supple, JVD not distended Respiratory: Clear to auscultation bilaterally, Normal air movement Cardiovascular: Regular rate/rhythm, Normal S1 S2 Gastrointestinal: Normal bowel sounds, No tenderness Musculoskeletal: No tenderness Integumentary: No rashes Neurological: Normal speech, Normal tone, Normal affect Lymphatics: No axilla or inguinal lymphadenopathy - Studies Laboratory Data (last 24 hrs) 07/21/18 20:23: PT 10.9, INR 0.92 07/21/18 20:23: WBC 9.1, Hgb 16.0, Hct 45.3, Plt Count 231 07/21/18 20:23: Sodium 142, Potassium 3.3 L, BUN 9, Creatinine 1.20, Glucose 120 H, Magnesium 2.0, Total Bilirubin 0.2, AST 33, ALT 62, Alkaline Phosphatase 95 Assessment And Plan - Plan Chest pain, rule out acute myocardial infarction 1. Serial troponins and EKG 2. Cardiology consultation 3. Echocardiogram and inpatient stress test(pending cardiology evaluation) 4. Anti-platelet therapy, anti coagulation, beta-harish, statin, and O2 as needed 5. IV morphine for pain 6. Nitro p.r.n. 7. GI/DVt prophylaxis
[2018-07-23] MEDS: METOPROLOL TAR 50 MG TAB PO SCH (08:54)
[2018-07-23] MEDS: ENOXAPARIN 40 MG/0.4 ML SQ SCH (09:01)
[2018-07-23] MEDS: ASPIRIN EC 81 MG TAB PO SCH (09:02)
[2018-07-23 11:34] VITALS: O2SAT 97
--- NOTE | 2018-07-23 12:27 | RAD REPORT ---
EXAM DESCRIPTION: NM - Rest Stress Cardiac Imaging - 07/23/2018 12:14 pm CLINICAL HISTORY: CP Chest pain. COMPARISON: No comparisons TECHNIQUE: The patient was administered approximately 10mCi of Tc 99m Sestamibi prior to resting SPE CT imaging of the heart. The patient was then administered approximately 30 mCi of Tc 99m Sestamibi f ollowing exercise or pharmacologic stress. Multiplanar SPECT images were reviewed. FINDINGS: No stress induced ischemic defect is seen to suggest stress induced ischemia. No fixed def ect is seen to suggest hibernating myocardium or scarred myocardium. The end diastolic volume is 119 ml, the end systolic volume is 57 ml, and the ejection fraction is 52 %. IMPRESSION: No stress induced ischemia.
--- NOTE | 2018-07-23 12:45 | TREADMILL ---
70% H.R.: 133 85% H.R.: 162 90% H.R.: 171 100% H.R.: 190 DX: CHEST PAIN. MYOCARDIAL INFARCTION WAS RULED OUT Date of Study: 07/23/2018 Ht: 5 10 Wt: 265 lb 0 oz Consulting Physician: TRACIE MEDICATIONS: TYLENOL, XANAX, ASPIRIN, LOVENOX, LOPRESSOR, MORPHINE SULFATE HISTORY: 32 YEAR OLD MALE WITH STRONG FAMILY HISTORY OF HEART DISEASE. SMOKES ONE PACK PER DAY. PHYSICIAL EXAMINATION: RESTING B.P.: 113/78 RESTING H.R.: 76 RESTING EKG: NORMAL PROTOCOL: IAN/ MYOVIEW EXERCISE TIME: 10:00 MAXIMUM HEART RATE: 163 86 % OF PREDICTED B.P. AT PEAK STRESS: 152/75 H.R. AT 1 MINUTE POST EXERCISE: 134 IMPRESSION: STRESS STOPPED PER PROTOCOL. CARDIOLITE INJECTED. SEE NUCLEAR MEDICINE REPORT. NO SUPRAVENTRICULAR TACHYCARDIA. NO VENTRICULAR TACHYCARDIA. NO PREMATURE ATRIAL COMPLEXES OR PREMATURE VENTRICULAR COMPLEXES. CHEST PAIN INCREASED TO THREE OUT OF TEN ON PAIN SCALE. NON-DIAGNOSTIC ELECTROCARDIOGRAM WITH LEXISCAN STRESS.
--- NOTE | 2018-07-23 13:02 | ECHO ---
HEIGHT: 5 ft 10 in WEIGHT: 265 lb 0 oz DATE OF STUDY: 07/23/[address]: Scooter Moss MD 2-DIMENSIONAL: YES M.MODE: YES DOPPLER: YES COLOR FLOW: YES TDS: PORTABLE: DEFINITY: BUBBLE STUDY: DIAGNOSIS: CHEST PAIN CARDIAC HISTORY: CATHERIZATION: SURGERY: PROSTHETIC VALVE: PACEMAKER: MEASUREMENTS (cm) DIASTOLIC (NORMALS) SYSTOLIC (NORMALS) IVSd 1.0 (0.6-1.2) LA Diam 3.4 (1.9-4.0) LVEF 53% LVIDd 4.2 (3.5-5.7) LVIDs 3.0 (2.0-3.5) %FS 27% LVPWd 1.1 (0.6-1.2) Ao Diam 2.9 (2.0-3.7) 2 DIMENSIONAL ASSESSMENT: RIGHT ATRIUM: NORMAL LEFT ATRIUM: NORMAL RIGHT VENTRICLE: NORMAL LEFT VENTRICLE: NORMAL TRICUSPID VALVE: NORMAL MITRAL VALVE: NORMAL PULMONIC VALVE: NORMAL AORTIC VALVE: NORMAL PERICARDIAL EFFUSION: NONE AORTIC ROOT: NORMAL LEFT VENTRICULAR WALL MOTION: NORMAL DOPPLER/COLOR FLOW: NORMAL COMMENTS: NORMAL 2-DIMENSIONAL ECHOCARDIOGRAM WITH DOPPLER. TECHNOLOGIST: SANDRA WESTON
[2018-07-23 14:59] VITALS: BP 124/60; TEMP 97.6
--- NOTE | 2018-07-23 15:22 | P.DS ---
Admission Date: 07/21/18 Discharge Date: 07/23/18 Disposition: ROUTINE DISCHARGE Discharge Condition: GOOD Reason for Admission: Chest pain, rule out myocardial infarct Consultations: Cardiology, Dr. Moss Procedures: 07/23/2018: Echocardiogram, normal. Ejection fraction of 53% 07/23/2018: Stress test, no stress-induced ischemia noted on stress test Brief History of Present Illness: Patient is a 32-year-old gentleman who came to the hospital with chest pain. Pain was mainly in the sternal region radiated to his left arm. Patient was diaphoretic and nauseated. Patient also got short of breath. Patient has never had symptoms like this before. He came into the ER for further evaluation. His troponins and EKG have been negative. He will be admission for further evaluation. He does have a strong family history of his mother passing away at 35 with heart disease. He is in his 30s now and we need to go ahead and make sure he is not at risk of early from cardiac disease. Hospital Course: Patient was admitted for chest pain due to his strong family history of cardiac disease. Serial troponins were negative, EKG without any changes. Cardiology was consulted and echocardiogram and stress test was done, which were both negative. His symptoms resolved. He was counseled on smoking cessation. At the time of discharge, he was symptom free, tolerating regular diet, ambulating without any concerns and he was hemodynamically stable. He will follow up with outpatient cardiology in 1-2 weeks as well as primary care physician in 1 week. No medication changes made to his regimen at this time. Vital Signs/Physical Exam: Temp Pulse Resp BP Pulse Ox 97.6 F 91 H 20 124/60 94 07/23/18 12:00 07/23/18 12:00 07/23/18 12:00 07/23/18 12:00 07/23/18 12:00 General: Alert, In no apparent distress, Oriented x3 HEENT: Atraumatic, PERRLA, EOMI Neck: Supple, JVD not distended Respiratory: Clear to auscultation bilaterally, Normal air movement Cardiovascular: Regular rate/rhythm, Normal S1 S2 Gastrointestinal: Normal bowel sounds, No tenderness Musculoskeletal: No tenderness Integumentary: No rashes Neurological: Normal speech, Normal tone, Normal affect Lymphatics: No axilla or inguinal lymphadenopathy Laboratory Data at Discharge: WBC 8.7 K/uL (4.3-10.9) 07/22/18 04:39 Hgb 15.2 g/dL (13.6-17.9) 07/22/18 04:39 Hct 42.6 % (39.6-49.0) 07/22/18 04:39 Plt Count 219 K/uL (152-406) 07/22/18 04:39 PT 10.9 SECONDS (9.5-12.5) 07/21/18 20:23 INR 0.92 07/21/18 20:23 Sodium 140 mmol/L (136-145) 07/22/18 04:39 Potassium 3.7 mmol/L (3.5-5.1) 07/22/18 04:39 BUN 10 mg/dL (7-18) 07/22/18 04:39 Creatinine 1.10 mg/dL (0.55-1.3) 07/22/18 04:39 Glucose 100 mg/dL (74-106) 07/22/18 04:39 Magnesium 2.0 mg/dL (1.8-2.4) 07/21/18 20:23 Total Bilirubin 0.2 mg/dL (0.2-1.0) 07/21/18 20:23 AST 33 U/L (15-37) 07/21/18 20:23 ALT 62 U/L (12-78) 07/21/18 20:23 Alkaline Phosphatase 95 U/L (45-117) 07/21/18 20:23 Troponin I < 0.02 ng/mL (0.0-0.045) 07/23/18 00:44 Triglycerides 175 mg/dL (<150) H 07/22/18 04:39 Cholesterol 164 mg/dL (<200) 07/22/18 04:39 HDL Cholesterol 32 mg/dL (40-60) L 07/22/18 04:39 Cholesterol/HDL Ratio 5.13 07/22/18 04:39 Home Medications: NK [No Home Meds] 07/21/18 Patient Discharge Instructions: Please follow up with the primary care physician in 1 week. Please follow up with Cardiology in 2-3 weeks Diet: AHA Activity: Ad umu Physician Review: Patient Assessed, Agree with Above Assessment and Plan Time spent managing pt's care (in minutes): 45
== END 2018-07-23 17:02 | disposition home or self-care (01) ==
LOC: ER 20:03 → ERHOLD 22:59 → 2ND 07-22 11:14
PROVIDERS: ADMIT Hospitalist; ATTEND Hospitalist
DX: R07.9 Chest pain, unspecified (principal); E66.9 Obesity, unspecified; Z68.38 Body mass index [BMI] 38.0-38.9, adult; Z82.49 Family history of ischemic heart disease and other diseases of the circulatory system; F17.210 Nicotine dependence, cigarettes, uncomplicated
CPT/HCPCS: 36415; 71045; 78452; 80048; 80061; 80076; 81003; 82962; 83735; 83880; 84484; 85025; 85610; 93005; 93017; 93306; 99285; A9500; G0378; J1650; J2270

== ENCOUNTER 2018-11-22 05:15 | Emergency (ER) | payer OTHER ==
[2018-11-22 06:51] LABS: Absolute Lymphocytes (CBC) 2.6 K/uL (0.7-4.9); Absolute Monocytes 0.5 K/uL (0.1-1.3); Absolute Neutrophil 5.8 K/uL (1.8-8.0); Basophils % 0.5 % (0-1.3); Eosinophils % 3.1 % (0-4.4); Hematocrit 48.5 % (39.6-49.0); Monocytes % 5.8 % (3.3-12.3); RBC Red Blood Cell Count 5.39 M/uL (4.33-5.43)
[2018-11-22] MEDS ORDERED: MORPHINE 4 MG/ML SYR ONE (06:52)
[2018-11-22] MEDS ORDERED: ONDANSETRON 4 MG/2 ML VIAL ONE (06:52)
[2018-11-22] MEDS ORDERED: NA CHLORIDE 0.9% 1,000 ML ONE (06:52)
[2018-11-22 08:38] LABS: ALT/SGPT 90 U/L (12-78); AST/SGOT 36 U/L (15-37); Albumin 3.8 g/dL (3.4-5.0); Alkaline Phosphatase 89 U/L (45-117); BUN Blood Urea Nitrogen 15 mg/dL (7-18); Bicarbonate 25 mmol/L (21-32); Bilirubin Direct 0.1 mg/dL (0-0.2); Bilirubin Total 0.4 mg/dL (0.2-1.0); Glucose Level 100 mg/dL (74-106); Lipase 130 U/L (73-393); Potassium 4.2 mmol/L (3.5-5.1); Protein, Total 7.2 g/dL (6.4-8.2); Sodium Level 140 mmol/L (136-145)
--- NOTE | 2018-11-22 09:03 | RAD REPORT ---
EXAM DESCRIPTION: CT - Stone Protocol - 11/22/2018 6:52 am CLINICAL HISTORY: Abdominal pain. Left flank pain COMPARISON: January 2018 TECHNIQUE: Computed axial tomography of the abdomen pelvis was obtained without oral or IV contrast. Lack of IV and oral contrast limits evaluation of solid organs, bowel, and vessels. Coronal reformat isac images were obtained and reviewed. All CT scans are performed using dose optimization technique as appropriate and may include automated exposure control or mA/KV adjustment according to patient size. FINDINGS: A renal calculus is not seen. An ureteral calculus is not noted. A bladder calculus is not present. The liver, spleen, pancreas and adrenals appear grossly normal There is no evidence of diverticulitis. The appendix appears normal Small inguinal hernias contain fat IMPRESSION: Negative for a genitourinary calculus No acute abnormality displayed Exam discussed with Dr. Estrada
--- NOTE | 2018-11-22 09:04 | ER ---
Nurse's Notes [facility] Name: Jose R Villela Age: 33 yrs Sex: Male : 1985 Arrival Date: 11/22/2018 Time: 05:24 Bed 8 Private MD: Jv Hurt T Diagnosis: Low back pain Presentation: 11/22 05:42 Presenting complaint: Patient states: L flank pain for several days. Was seen at [place] [id number] ER and had normal blood work and CT but states the pain has not gotten any better. Also reports when he was trying to have a bowel movement this morning he became dizzy and passed out. Transition of care: patient was not received from another setting of care. Onset of symptoms was November 19, 2018. Risk Assessment: Do you want to hurt yourself or someone else? Patient reports no desire to harm self or others. Initial Sepsis Screen: Does the patient meet any 2 criteria? No. Patient's initial sepsis screen is negative. Does the patient have a suspected source of infection? No. Patient's initial sepsis screen is negative. 05:42 Method Of Arrival: Ambulatory aa1 05:42 Acuity: LUIS 3 aa1 Triage Assessment: 05:42 General: Appears in no apparent distress. comfortable, Behavior is calm, cooperative, aa1 appropriate for age. Historical: - Allergies: 05:56 No Known Allergies; aa1 - Home Meds: 05:56 Zofran Oral [Active]; meloxicam oral oral [Active]; aa1 - PMHx: 05:56 None; aa1 - PSHx: 05:56 None; aa1 - Immunization history:: Flu vaccine is up to date. - Social history:: Smoking status: Patient/guardian denies using tobacco. - Ebola Screening: : Patient denies exposure to infectious person Patient denies travel to an Ebola-affected area in the 21 days before illness onset. Screenin:36 Abuse screen: Denies threats or abuse. Nutritional screening: No deficits noted. jd3 Tuberculosis screening: No symptoms or risk factors identified. Fall Risk Ambulatory Aid- None/Bed Rest/Nurse Assist (0 pts). Gait- Normal/Bed Rest/Wheelchair (0 pts) Mental Status- Oriented to own ability (0 pts). Total Mcfarland Fall Scale indicates No Risk (0-24 pts). Assessment: 05:34 General: Appears in no apparent distress. uncomfortable, Behavior is calm, cooperative, jd3 appropriate for age. Pain: Complains of pain in left upper quadrant and left lower quadrant Quality of pain is described as aching, sharp, tender. Neuro: Level of Consciousness is awake, alert, obeys commands, Oriented to person, place, time, situation, Appropriate for age. Cardiovascular: Capillary refill < 3 seconds Patient's skin is warm and dry. Respiratory: Airway is patent Respiratory effort is even, unlabored, Respiratory pattern is regular, symmetrical. GI: Abdomen is round non-distended, Bowel sounds present X 4 quads. Abd is soft X 4 quads Abdomen is tender to palpation in left upper quadrant and left lower quadrant Reports nausea, Patient currently denies vomiting. : No signs and/or symptoms were reported regarding the genitourinary system. EENT: No signs and/or symptoms were reported regarding the EENT system. Derm: Skin is intact, Skin is dry, Skin is normal, Skin temperature is warm. Musculoskeletal: Circulation, motion, and sensation intact. Range of motion: intact in all extremities. 07:15 Reassessment: Patient appears in no apparent distress at this time. Patient and/or hb family updated on plan of care and expected duration. Pain level reassessed. Patient is alert, oriented x 3, equal unlabored respirations, skin warm/dry/pink. 08:00 Reassessment: Patient appears in no apparent distress at this time. Patient and/or hb family updated on plan of care and expected duration. Pain level reassessed. Patient is alert, oriented x 3, equal unlabored respirations, skin warm/dry/pink. 09:00 Reassessment: Patient appears in no apparent distress at this time. Patient and/or hb family updated on plan of care and expected duration. Pain level reassessed. Patient is alert, oriented x 3, equal unlabored respirations, skin warm/dry/pink. 09:24 Reassessment: Discharge ordered, awaiting IV Valium delivery from pharmacy at this time. Pt updated, Jered LAGUNAS aware. Vital Signs: 05:42 BP 136 / 77; Pulse 63; Resp 16; Temp 98.5; Pulse Ox 99% on R/A; Weight 124.74 kg; aa1 Height 5 ft. 9 in. (175.26 cm); Pain 6/10; 07:00 BP 146 / 79; Pulse 59; Resp 16; Pulse Ox 97% on R/A; hb 08:00 BP 124 / 77; Pulse 59; Resp 16; Pulse Ox 97% on R/A; hb 09:00 BP 130 / 74; Pulse 58; Resp 16; Pulse Ox 98% on R/A; Pain 6/10; hb 10:00 BP 128 / 76; Pulse 62; Resp 16; Pulse Ox 97% on R/A; aj1 05:42 Body Mass Index 40.61 (124.74 kg, 175.26 cm) aa1 ED Course: 05:24 Patient arrived in ED. es 05:24 Jv Hurt MD is Private Physician. es 05:34 Erick Pichardo, KEM is Primary Nurse. jd3 05:36 Patient has correct armband on for positive identification. Bed in low position. Call jd3 light in reach. Side rails up X 1. Adult w/ patient. 05:42 Arm band placed on right wrist. aa1 05:49 Triage completed. aa1 06:09 Jered Perkins NP is PHCP. pm1 06:09 Isaac Candelario MD is Attending Physician. pm1 06:40 Inserted saline lock: 20 gauge in right hand, using aseptic technique. Blood collected. cc3 06:50 CT completed. Patient tolerated procedure well. Patient moved to CT via wheelchair. Patient moved back from CT. 06:53 CT Stone Protocol In Process Unspecified. EDMS 07:49 Missed attempt(s): 22 gauge in left forearm. Bleeding controlled, band aid applied, pc1 catheter tip intact. 07:58 Lab(s) recollected, by me, sent to lab. dh3 10:16 No provider procedures requiring assistance completed. IV discontinued, intact, aj1 bleeding controlled, No redness/swelling at site. Pressure dressing applied. Administered Medications: 06:56 Drug: Zofran 4 mg Route: IVP; Site: right hand; jd3 07:45 Follow up: Response: No adverse reaction hb 06:57 Drug: NS 0.9% 1000 ml Route: IV; Rate: 1000 ml; Site: right hand; jd3 06:57 Drug: morphine 4 mg Route: IVP; Site: right hand; jd3 07:45 Follow up: Response: No adverse reaction hb 09:45 Drug: Valium 5 mg Route: IVP; Site: right hand; 10:16 Follow up: Response: No adverse reaction; Pain is decreased aj1 Outcome: 09:03 Discharge ordered by . pm1 10:16 Discharged to home ambulatory, with family. aj1 10:16 Condition: good 10:16 Discharge instructions given to patient, Instructed on discharge instructions, follow up and referral plans. no drinking with medication, no driving heavy equipment, medication usage, Demonstrated understanding of instructions, follow-up care, medications, Prescriptions given X 2. 10:17 Patient left the ED. aj1 Signatures: Dispatcher [employer] Zenobia Houser RN RN aj1 Orly Nicolas RN RN aa1 Yolanda Doe Ervin eh Marinas, Patrick, HIGH SCHOOL TEACHER HIGH SCHOOL TEACHER pm1 Linh Barlow RN RN Vin, Elaine 3 Erick Pichardo RN RN jd3 Maria Silverman cc3 Jered Maher pc1 Corrections: (The following items were deleted from the chart) 06:53 06:40 Inserted saline lock: 20 gauge in right Blood collected. cc3 cc3
--- NOTE | 2018-11-22 09:05 | EDPHYS ---
Physician Documentation [facility] Name: Jose R Villela Age: 33 yrs Sex: Male : 1985 Arrival Date: 11/22/2018 Time: 05:24 Bed 8 Private MD: Jv Hurt T ED Physician Isaac Candelario HPI: 11/22 07:00 This 33 yrs old Male presents to ER via Ambulatory with complaints of LT pm1 flank pain, nausea. 07:00 The patient complains of pain in the left low back. The pain radiates to the left lower pm1 quadrant. Onset: The symptoms/episode began/occurred 3 day(s) ago. Modifying factors: The symptoms are alleviated by nothing. the symptoms are aggravated by nothing. Associated signs and symptoms: Pertinent positives: nausea, Pertinent negatives: diarrhea, dysuria, fever, headache, vomiting. Severity of pain: in the emergency department the pain is unchanged. The patient has not experienced similar symptoms in the past. The patient has been recently seen by a physician: with similar presenting complaints, and apparently given a diagnosis of [place] ER: abdominal/flank pain and discharged home with meloxicam, lab tests were done, CT scan was done. Historical: - Allergies: 05:56 No Known Allergies; aa1 - Home Meds: 05:56 Zofran Oral [Active]; meloxicam oral oral [Active]; aa1 - PMHx: 05:56 None; aa1 - PSHx: 05:56 None; aa1 - Immunization history:: Flu vaccine is up to date. - Social history:: Smoking status: Patient/guardian denies using tobacco. - Ebola Screening: : Patient denies exposure to infectious person Patient denies travel to an Ebola-affected area in the 21 days before illness onset. ROS: 07:00 Constitutional: Negative for fever, chills, and weight loss, Eyes: Negative for injury, pm1 pain, redness, and discharge, ENT: Negative for injury, pain, and discharge, Neck: Negative for injury, pain, and swelling, Cardiovascular: Negative for chest pain, palpitations, and edema, Respiratory: Negative for shortness of breath, cough, wheezing, and pleuritic chest pain. 07:00 : Negative for injury, bleeding, discharge, and swelling, MS/Extremity: Negative for injury and deformity, Skin: Negative for injury, rash, and discoloration, Neuro: Negative for headache, weakness, numbness, tingling, and seizure. 07:00 Abdomen/GI: Positive for abdominal pain, nausea, of the left lower quadrant, Negative for vomiting, diarrhea. 07:00 Back: Positive for pain with movement, flank pain, on the left. Exam: 07:00 Constitutional: This is a well developed, well nourished patient who is awake, alert, pm1 and in no acute distress. Head/Face: Normocephalic, atraumatic. Eyes: Pupils equal round and reactive to light, extra-ocular motions intact. Lids and lashes normal. Conjunctiva and sclera are non-icteric and not injected. Cornea within normal limits. Periorbital areas with no swelling, redness, or edema. ENT: Nares patent. No nasal discharge, no septal abnormalities noted. Tympanic membranes are normal and external auditory canals are clear. Oropharynx with no redness, swelling, or masses, exudates, or evidence of obstruction, uvula midline. Mucous membranes moist. Neck: Trachea midline, no thyromegaly or masses palpated, and no cervical lymphadenopathy. Supple, full range of motion without nuchal rigidity, or vertebral point tenderness. No Meningismus. Chest/axilla: Normal chest wall appearance and motion. Nontender with no deformity. No lesions are appreciated. Cardiovascular: Regular rate and rhythm with a normal S1 and S2. No gallops, murmurs, or rubs. Normal PMI, no JVD. No pulse deficits. Respiratory: Lungs have equal breath sounds bilaterally, clear to auscultation and percussion. No rales, rhonchi or wheezes noted. No increased work of breathing, no retractions or nasal flaring. 07:00 Skin: Warm, dry with normal turgor. Normal color with no rashes, no lesions, and no evidence of cellulitis. MS/ Extremity: Pulses equal, no cyanosis. Neurovascular intact. Full, normal range of motion. 07:00 Abdomen/GI: Inspection: abdomen appears normal, Bowel sounds: normal, Palpation: soft, mild abdominal tenderness, in the left lower quadrant, mass, is not appreciated, rebound tenderness, is not appreciated. 07:00 Back: normal spinal alignment noted, muscle spasm, is appreciated in the left low back. 07:00 Neuro: Orientation: is normal, Motor: is normal, Sensation: is normal, no obvious gross deficits. Vital Signs: 05:42 BP 136 / 77; Pulse 63; Resp 16; Temp 98.5; Pulse Ox 99% on R/A; Weight 124.74 kg; aa1 Height 5 ft. 9 in. (175.26 cm); Pain 6/10; 07:00 BP 146 / 79; Pulse 59; Resp 16; Pulse Ox 97% on R/A; hb 08:00 BP 124 / 77; Pulse 59; Resp 16; Pulse Ox 97% on R/A; hb 09:00 BP 130 / 74; Pulse 58; Resp 16; Pulse Ox 98% on R/A; Pain 6/10; hb 10:00 BP 128 / 76; Pulse 62; Resp 16; Pulse Ox 97% on R/A; aj1 05:42 Body Mass Index 40.61 (124.74 kg, 175.26 cm) aa1 MDM: 06:11 Patient medically screened. pm1 09:02 Data reviewed: vital signs. Data interpreted: Pulse oximetry: on room air is 97 %. pm1 Interpretation: normal. Counseling: I had a detailed discussion with the patient and/or guardian regarding: the historical points, exam findings, and any diagnostic results supporting the discharge/admit diagnosis, lab results, radiology results, the need for outpatient follow up, to return to the emergency department if symptoms worsen or persist or if there are any questions or concerns that arise at home. 11/22 06:17 Order name: Basic Metabolic Panel; Complete Time: 08:45 pm1 11/22 06:17 Order name: CBC with Diff; Complete Time: 07:03 pm1 11/22 06:17 Order name: Creatinine for Radiology; Complete Time: 07:24 pm1 11/22 06:17 Order name: Hepatic Function; Complete Time: 08:45 pm1 11/22 06:17 Order name: Lipase; Complete Time: 08:45 pm1 11/22 07:05 Order name: Urine Dipstick--Ancillary (enter results); Complete Time: 09:13 mw2 11/22 06:17 Order name: IV Saline Lock; Complete Time: 06:43 pm1 11/22 06:17 Order name: Labs collected and sent; Complete Time: 06:43 pm1 11/22 06:17 Order name: Urine Dipstick-Ancillary (obtain specimen); Complete Time: 07:03 pm1 11/22 06:17 Order name: CT Stone Protocol; Complete Time: 09:08 pm1 11/22 07:06 Order name: Labs - recollect needed; Complete Time: 07:58 mw2 Administered Medications: 06:56 Drug: Zofran 4 mg Route: IVP; Site: right hand; jd3 07:45 Follow up: Response: No adverse reaction hb 06:57 Drug: NS 0.9% 1000 ml Route: IV; Rate: 1000 ml; Site: right hand; jd3 06:57 Drug: morphine 4 mg Route: IVP; Site: right hand; jd3 07:45 Follow up: Response: No adverse reaction hb 09:45 Drug: Valium 5 mg Route: IVP; Site: right hand; hb 10:16 Follow up: Response: No adverse reaction; Pain is decreased aj1 Disposition: 11/22/18 09:03 Discharged to Home. Impression: Low back pain. - Condition is Stable. - Discharge Instructions: Back Pain, Adult, Flank Pain, Adult. - Prescriptions for Cyclobenzaprine 10 mg Oral Tablet - take 1 tablet by ORAL route every 8 hours As needed; 30 tablet. Tylenol- Codeine #3 300-30 mg Oral Tablet - take 2 tablets by ORAL route every 6 hours As needed; 20 tablet. - Medication Reconciliation Form, Thank You Letter, Antibiotic Education, Prescription Opioid Use form. - Follow up: Emergency Department; When: As needed; Reason: Worsening of condition. Follow up: Private Physician; When: 2 - 3 days; Reason: Recheck today's complaints, Continuance of care, Re-evaluation by your physician. - Problem is new. - Symptoms have improved. Signatures: Dispatcher [employer] Zenobia Houser RN RN aj1 Orly Nicolas RN RN aa1 Jered Perkins, SLOT SERVICE SPECIALIST SLOT SERVICE SPECIALIST pm1 Linh Barlow RN RN Erick Macias RN RN jd3 Patricia Kelly mw2 Corrections: (The following items were deleted from the chart) 10:17 09:03 11/22/2018 09:03 Discharged to Home. Impression: Low back pain. Condition is aj1 Stable. Forms are Medication Reconciliation Form, Thank You Letter, Antibiotic Education, Prescription Opioid Use. Follow up: Emergency Department; When: As needed; Reason: Worsening of condition. Follow up: Private Physician; When: 2 - 3 days; Reason: Recheck today's complaints, Continuance of care, Re-evaluation by your physician. Problem is new. Symptoms have improved. pm1
[2018-11-22 09:11] LABS: Urine Blood TRACE (NEG); Urine Glucose NEGATIVE (NEG); Urine Protein NEGATIVE (NEG); Urine Specific Gravity 1.025 (1.005-1.030)
[2018-11-22] MEDS ORDERED: DIAZEPAM 10 MG/2 ML INJ SYRINGE ONE (09:53)
[2018-11-22 10:28] VITALS: TEMP 98.5
[2018-11-22 10:33] VITALS: BP 128/76; O2SAT 97
== END 2018-11-22 10:17 | disposition home or self-care (01) ==
LOC: ER 05:15
DX: M54.5 Low back pain (principal)
CPT/HCPCS: 36415; 74176; 76377; 80048; 80076; 81003; 83690; 85025; 96374; 96375; 99284; J2405; J3360; J7030

== ENCOUNTER 2018-12-08 21:18 | Emergency (ER) | payer OTHER ==
[2018-12-08] MEDS ORDERED: MEPERIDINE HCL 50 MG/ML AMP ONE (21:52)
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
--- NOTE | 2018-12-08 22:19 | EDPHYS ---
Physician Documentation [facility] Name: Jose R Villela Age: 33 yrs Sex: Male : 1985 Arrival Date: 12/08/2018 Time: 21:20 Bed 20 Private MD: Jv Hurt T ED Physician Alfredo Poole HPI: 12/08 21:39 This 33 yrs old Male presents to ER via Ambulatory with complaints of Knee rn Injury. 21:39 The patient presents with decreased range of motion, an injury, pain. The complaints rn affect the right knee. Onset: The symptoms/episode began/occurred just prior to arrival. Modifying factors: The symptoms are alleviated by nothing. the symptoms are aggravated by movement, weight bearing, bending knee. Associated signs and symptoms: Pertinent positives: swelling. Severity of symptoms: At their worst the symptoms were moderate, in the emergency department the symptoms are unchanged. The patient has not experienced similar symptoms in the past. Reports was wrestling with friend, got right leg swept, valgus stress on right knee, leg gave out, + mild swelling, not able to bear weight, no pop heard. No other injury. Historical: - Allergies: 21:38 No Known Allergies; fc - Home Meds: 21:38 None [Active]; fc - PMHx: 21:38 None; fc - PSHx: 21:38 None; fc - Immunization history:: Last tetanus immunization: up to date Flu vaccine is up to date. - Social history:: Smoking status: Patient uses tobacco products, smokes two packs cigarettes per day. Patient uses alcohol, 3 times a week. - Ebola Screening: : Patient negative for fever greater than or equal to 101.5 degrees Fahrenheit, and additional compatible Ebola Virus Disease symptoms Patient denies exposure to infectious person Patient denies travel to an Ebola-affected area in the 21 days before illness onset. - Family history:: not pertinent. - Hospitalizations: : No recent hospitalization is reported. ROS: 21:39 Constitutional: Negative for fever, chills, and weight loss, Back: Negative for injury rn and pain, MS/Extremity: + right knee pain and injury Skin: Negative for injury, rash, and discoloration, Neuro: Negative for weakness, numbness, tingling Exam: 21:39 Constitutional: This is a well developed, well nourished patient who is awake, alert, rn and in no acute distress. MS/ Extremity: Pulses equal, no cyanosis. + mild right knee effusion with tenderness all around knee, painful but intact extension, no cyanosis, patella not dislocated. Vital Signs: 21:23 BP 130 / 67; Pulse 90; Resp 18; Temp 98.3(O); Pulse Ox 98% on R/A; Weight 124.74 kg fc (R); Height 5 ft. 8 in. (172.72 cm) (R); Pain 5/10; 21:23 Body Mass Index 41.81 (124.74 kg, 172.72 cm) fc MDM: 21:26 Patient medically screened. rn 22:17 Differential diagnosis: closed fracture, contusion, ligamentous injury, meniscus rn injury. Data reviewed: vital signs, nurses notes, radiologic studies, plain films, and as a result, I will discharge patient. Counseling: I had a detailed discussion with the patient and/or guardian regarding: the historical points, exam findings, and any diagnostic results supporting the discharge/admit diagnosis, radiology results, the need for outpatient follow up, to return to the emergency department if symptoms worsen or persist or if there are any questions or concerns that arise at home. Response to treatment: the patient's symptoms have mildly improved after treatment, and as a result, I will discharge patient. Special discussion: I discussed with the patient/guardian in detail that at this point there is no indication for admission to the hospital. It is understood, however, that if the symptoms persist or worsen the patient needs to return immediately for re-evaluation. Further emergent ED testing is not indicated at this point in time. I discussed with the patient/guardian in detail the need to arrange with the PCP or specialist further outpatient testing, MRI, Based on the history and exam findings, there is no indication for further emergent testing or inpatient evaluation. I discussed with the patient/guardian the need to see the orthopedic surgeon for further evaluation of the symptoms. 12/08 21:37 Order name: XRAY Knee RIGHT 3 view rn 12/08 21:37 Order name: Tib Fib Right XRAY rn 12/08 22:17 Order name: Knee Immobilizer; Complete Time: 22:36 rn 12/08 22:19 Order name: Crutches; Complete Time: 22:36 rn Administered Medications: 21:43 Drug: Demerol 50 mg Route: IM; Site: right deltoid; ed1 22:25 Follow up: Response: No adverse reaction; Pain is unchanged, physician notified ed1 22:36 Drug: [place] 10 mg-325 mg 1 tabs Route: PO; ed1 22:40 Follow up: Response: Medication administered at discharge. ed1 Disposition: 12/08/18 22:18 Discharged to Home. Impression: Internal derangement of knee, Sprain of other specified parts of left knee. - Condition is Stable. - Discharge Instructions: Knee Sprain. - Prescriptions for Ibuprofen 800 mg Oral Tablet - take 1 tablet by ORAL route every 12 hours As needed take with food; 20 tablet. Tylenol- Codeine #3 300-30 mg Oral Tablet - take 1 tablet by ORAL route every 6 hours As needed; 15 tablet. - Medication Reconciliation Form, Thank You Letter, Antibiotic Education, Prescription Opioid Use, Work release form form. - Follow up: Mo Yi MD; When: As needed; Reason: Recheck today's complaints, Re-evaluation by your physician. - Problem is new. - Symptoms have improved. Signatures: Dispatcher [employer] EDMS Joana Rabago RN RN Alfredo Poole MD MD rn Riggs, Erika, RN RN ed1 Corrections: (The following items were deleted from the chart) 22:40 22:18 12/08/2018 22:18 Discharged to Home. Impression: Internal derangement of knee; ed1 Sprain of other specified parts of left knee. Condition is Stable. Forms are Medication Reconciliation Form, Thank You Letter, Antibiotic Education, Prescription Opioid Use. Follow up: Mo Yi; When: As needed; Reason: Recheck today's complaints, Re-evaluation by your physician. Problem is new. Symptoms have improved. rn
[2018-12-08] MEDS ORDERED: HYDROCODONE/APAP 10/325 TAB ONE (22:40)
[2018-12-08 22:57] VITALS: BP 130/67; TEMP 98.3; O2SAT 98
--- NOTE | 2018-12-09 08:35 | RAD REPORT ---
EXAM DESCRIPTION: RAD - Tib Fib Right - 12/08/2018 10:12 pm CLINICAL HISTORY: Right lower leg pain COMPARISON: None. FINDINGS: No fracture is identified. There is no dislocation or periosteal reaction noted. No acute or suspicious bony finding. Small plantar spur is present. No foreign body or other soft tissue abnormality. IMPRESSION: Negative right tibia & fibula examination. Small plantar spur is present.
--- NOTE | 2018-12-09 08:36 | RAD REPORT ---
EXAM DESCRIPTION: RAD - Knee Right 3 View - 12/08/2018 10:15 pm CLINICAL HISTORY: Right knee pain following trauma COMPARISON: None. FINDINGS: No fracture, dislocation or periosteal reaction.No joint effusion seen. No joint space atilio rowing. No foreign body or other soft tissue abnormality. IMPRESSION: Negative right knee. Clinical concerns for internal derangement or occult bony injury could be further assessed with MR im aging.
== END 2018-12-08 22:40 | disposition home or self-care (01) ==
LOC: ER 21:18
DX: M23.91 Unspecified internal derangement of right knee (principal); Y93.72 Activity, wrestling; F17.210 Nicotine dependence, cigarettes, uncomplicated
CPT/HCPCS: 96372; 99284; J2175

== ENCOUNTER 2019-01-11 17:07 | Emergency (ER) | payer OTHER ==
[2019-01-11 18:58] LABS: Absolute Lymphocytes (CBC) 2.4 K/uL (0.7-4.9); Absolute Monocytes 0.4 K/uL (0.1-1.3); Absolute Neutrophil 5.1 K/uL (1.8-8.0); Basophils % 0.7 % (0-1.3); Hematocrit 50.3 % (39.6-49.0); Lymphocytes % 29.7 % (15.3-44.8); MPV 7.6 fL (7.6-11.3); Monocytes % 5.1 % (3.3-12.3); RBC Red Blood Cell Count 5.65 M/uL (4.33-5.43)
[2019-01-11 19:04] LABS: Protime INR 0.98
[2019-01-11 19:30] LABS: ALT/SGPT 118 U/L (12-78); AST/SGOT 39 U/L (15-37); Albumin 4.2 g/dL (3.4-5.0); Alkaline Phosphatase 90 U/L (45-117); BUN Blood Urea Nitrogen 18 mg/dL (7-18); Bicarbonate 26 mmol/L (21-32); Bilirubin Direct < 0.1 mg/dL (0-0.2); Bilirubin Total 0.3 mg/dL (0.2-1.0); Glucose Level 98 mg/dL (74-106); Magnesium 2.1 mg/dL (1.8-2.4); NT PRO-BNP 9 pg/mL (<125); Potassium 3.8 mmol/L (3.5-5.1); Protein, Total 8.1 g/dL (6.4-8.2); Sodium Level 139 mmol/L (136-145); Troponin (Emerg Dept Use Only) < 0.02 ng/mL (0.0-0.045)
[2019-01-11] MEDS ORDERED: ONDANSETRON 4 MG/2 ML VIAL ONE (19:30)
--- NOTE | 2019-01-11 19:36 | RAD REPORT ---
EXAM DESCRIPTION: CT - Head Brain Wo Cont - 01/11/2019 7:04 pm CLINICAL HISTORY: Dizziness, blurred vision COMPARISON: None. TECHNIQUE: Axial 5 mm thick images of the head were obtained without IV contrast. All CT scans are performed using dose optimization technique as appropriate and may include automated exposure control or mA/KV adjustment according to patient size. FINDINGS: No intracranial hemorrhage, mass, edema or shift of mid-line structures. No acute infarcti on changes seen. No abnormal extra-axial fluid collections. Ventricles are normal. A fatty mass 15 mm in size is present in the pineal region. These are uncommon intracranial lipomas but not regarded as suspicious or clinically significant. Mastoid air cells and visualized portions of the paranasal sinuses are clear. No acute bony findings. IMPRESSION: Negative non-contrast CT head examination for acute or significant finding. Full findin gs are detailed in the body of the report.
--- NOTE | 2019-01-11 19:54 | RAD REPORT ---
EXAM DESCRIPTION: RAD - Chest Single View - 01/11/2019 6:44 pm CLINICAL HISTORY: Chest pain COMPARISON: June 2018 TECHNIQUE: AP portable chest image was obtained 1841 hours . FINDINGS: Lungs are clear. Lung markings are similar to comparison. Heart and vasculature are normal . No measurable pleural effusion and no pneumothorax. No acute bony abnormality seen. No acute aortic findings suspected. IMPRESSION: No acute cardiopulmonary process. No significant interval change.
--- NOTE | 2019-01-11 20:33 | ER ---
Nurse's Notes [facility] Name: Jose R Villela Age: 33 yrs Sex: Male : 1985 Arrival Date: 01/11/2019 Time: 17:08 Bed 28 Private MD: Jv Hurt T Diagnosis: Benign Positional Vertigo;Chest pain, unspecified Presentation: 01/11 17:22 Presenting complaint: Patient states: Episodes of dizziness, nausea and blurred vision ss since this morning when repositioning. Pt reports he was seen recently in ER at [facility] for lower GI bleed that was caused from taking NSAIDS for his knee injury. Transition of care: patient was not received from another setting of care. Onset of symptoms is unknown. Risk Assessment: Do you want to hurt yourself or someone else? Patient reports no desire to harm self or others. Initial Sepsis Screen: Does the patient meet any 2 criteria? No. Patient's initial sepsis screen is negative. Does the patient have a suspected source of infection? No. Patient's initial sepsis screen is negative. Care prior to arrival: None. 17:22 Method Of Arrival: Ambulatory ss 17:28 Acuity: LUIS 3 ss Historical: - Allergies: 17:27 No Known Allergies; ss - PMHx: 17:27 None; ss - PSHx: 17:27 None; ss - Immunization history:: Adult Immunizations up to date. - Social history:: Smoking status: Patient uses tobacco products, smokes one pack cigarettes per day. - Ebola Screening: : Patient denies exposure to infectious person Patient denies travel to an Ebola-affected area in the 21 days before illness onset. Screenin:12 Abuse screen: Denies threats or abuse. Denies injuries from another. Nutritional mg2 screening: No deficits noted. Tuberculosis screening: No symptoms or risk factors identified. Fall Risk Secondary diagnosis (15 points) dizziness. Assessment: 18:12 General: Appears in no apparent distress. comfortable, Behavior is calm, cooperative. mg2 Pain: Denies pain. Neuro: Level of Consciousness is awake, alert, obeys commands, Oriented to person, place, time, situation. Neuro: Reports. Cardiovascular: Capillary refill < 3 seconds Patient's skin is warm and dry. Respiratory: Airway is patent Respiratory effort is even, unlabored, Respiratory pattern is regular, symmetrical. 19:00 Neuro: Reports dizziness, since morning. GI: Reports nausea. : No deficits noted. mg2 EENT: No deficits noted. Derm: Skin is intact, is healthy with good turgor, Skin is pink, warm \T\ dry. normal. Musculoskeletal: Circulation, motion, and sensation intact. Capillary refill < 3 seconds. 21:10 Reassessment: Patient states feeling better. Patient states symptoms have improved. mg2 Vital Signs: 17:27 BP 136 / 93; Pulse 87; Resp 18; Temp 97.6(TE); Pulse Ox 100% on R/A; Weight 127.01 kg; ss Height 5 ft. 8 in. (172.72 cm); Pain 0/10; 19:14 BP 131 / 76; Pulse 73; Resp 18; Temp 98; Pulse Ox 97% on R/A; mg2 21:13 BP 122 / 78; Pulse 71; Resp 18; Temp 98; Pulse Ox 100% on R/A; Pain 0/10; mg2 17:27 Body Mass Index 42.57 (127.01 kg, 172.72 cm) ED Course: 17:08 Patient arrived in ED. as 17:08 Jv Hurt MD is Private Physician. as 17:27 Arm band placed on right wrist. ss 17:28 Triage completed. ss 18:05 Jered Perkins NP is PHCP. pm1 18:05 Isaac Candelario MD is Attending Physician. pm1 18:11 Grady Prather RN is Primary Nurse. mg2 18:13 Patient has correct armband on for positive identification. Pulse ox on. NIBP on. mg2 18:38 No provider procedures requiring assistance completed. Inserted saline lock: 20 gauge mg2 in left hand, using aseptic technique. Blood collected. 18:47 XRAY Chest (1 view) In Process Unspecified. EDMS 19:04 CT completed. Patient tolerated procedure well. Patient moved to CT via wheelchair. nj Patient moved back from CT. 19:05 CT Head Brain wo Cont In Process Unspecified. EDMS 21:15 IV discontinued, intact, bleeding controlled, No redness/swelling at site. Pressure mg2 dressing applied. Administered Medications: 19:21 Drug: Zofran 4 mg Route: IVP; Site: left hand; mg2 21:16 Follow up: Response: No adverse reaction; Marked relief of symptoms mg2 20:34 Drug: Valium 5 mg Route: PO; mg2 21:16 Follow up: Response: No adverse reaction; Marked relief of symptoms mg2 Outcome: 20:32 Discharge ordered by MD. pm1 21:15 Discharged to home via wheelchair, with family. mg2 21:15 Condition: stable 21:15 Discharge instructions given to patient, family, Instructed on discharge instructions, follow up and referral plans. medication usage, Demonstrated understanding of instructions, follow-up care, medications, Prescriptions given X 1. 21:18 Patient left the ED. mg2 Signatures: Dispatcher [employer] EDAylin Ryder Shelby, KEM RN ss Jered Perkins NP STAFF CLIMATE SCIENTIST pm1 Jarrell Harrison Michele, RN RN mg2 Corrections: (The following items were deleted from the chart) 19:50 19:14 Pulse 73bpm; Resp 18bpm; Pulse Ox 97% RA; Temp 98F; mg2 mg2
--- NOTE | 2019-01-11 20:33 | EDPHYS ---
Physician Documentation [facility] Name: Jose R Villela Age: 33 yrs Sex: Male : 1985 Arrival Date: 01/11/2019 Time: 17:08 Bed 28 Private MD: Jv Hurt T ED Physician Isaac Candelario HPI: 01/11 19:05 This 33 yrs old Male presents to ER via Ambulatory with complaints of pm1 Dizziness. 19:05 The patient presents with dizziness, vertigo. Onset: The symptoms/episode pm1 began/occurred this morning. Context: just prior to the episode the patient experienced no apparent symptoms. Modifying factors: The symptoms are alleviated by holding head still, the symptoms are aggravated by movement of head, changing position. Associated signs and symptoms: Pertinent positives: chest pain, Pertinent negatives: abdominal pain, headache, numbness, shortness of breath, tingling. Severity of symptoms: in the emergency department the symptoms are unchanged. The patient has not experienced similar symptoms in the past. Historical: - Allergies: 17:27 No Known Allergies; ss - PMHx: 17:27 None; ss - PSHx: 17:27 None; ss - Immunization history:: Adult Immunizations up to date. - Social history:: Smoking status: Patient uses tobacco products, smokes one pack cigarettes per day. - Ebola Screening: : Patient denies exposure to infectious person Patient denies travel to an Ebola-affected area in the 21 days before illness onset. ROS: 19:05 Constitutional: Negative for fever, chills, and weight loss, Eyes: Negative for injury, pm1 pain, redness, and discharge, ENT: Negative for injury, pain, and discharge, Neck: Negative for injury, pain, and swelling. 19:05 Respiratory: Negative for shortness of breath, cough, wheezing, and pleuritic chest pain, Back: Negative for injury and pain, : Negative for injury, bleeding, discharge, and swelling, MS/Extremity: Negative for injury and deformity, Skin: Negative for injury, rash, and discoloration. 19:05 Cardiovascular: Positive for chest pain, Negative for edema, palpitations. 19:05 Abdomen/GI: Positive for small amount of bright red blood on stool and with wiping, Negative for rectal pain. 19:05 Neuro: Positive for dizziness, Negative for headache, numbness, weakness. Exam: 19:05 Constitutional: This is a well developed, well nourished patient who is awake, alert, pm1 and in no acute distress. Head/Face: Normocephalic, atraumatic. ENT: Nares patent. No nasal discharge, no septal abnormalities noted. Tympanic membranes are normal and external auditory canals are clear. Oropharynx with no redness, swelling, or masses, exudates, or evidence of obstruction, uvula midline. Mucous membranes moist. Neck: Trachea midline, no thyromegaly or masses palpated, and no cervical lymphadenopathy. Supple, full range of motion without nuchal rigidity, or vertebral point tenderness. No Meningismus. 19:05 Chest/axilla: Normal chest wall appearance and motion. Nontender with no deformity. No lesions are appreciated. Cardiovascular: Regular rate and rhythm with a normal S1 and S2. No gallops, murmurs, or rubs. Normal PMI, no JVD. No pulse deficits. Respiratory: Lungs have equal breath sounds bilaterally, clear to auscultation and percussion. No rales, rhonchi or wheezes noted. No increased work of breathing, no retractions or nasal flaring. Abdomen/GI: Soft, non-tender, with normal bowel sounds. No distension or tympany. No guarding or rebound. No evidence of tenderness throughout. Back: No spinal tenderness. No costovertebral tenderness. Full range of motion. Skin: Warm, dry with normal turgor. Normal color with no rashes, no lesions, and no evidence of cellulitis. MS/ Extremity: Pulses equal, no cyanosis. Neurovascular intact. Full, normal range of motion. 19:05 Eyes: Periorbital structures: appear normal, Pupils: no acute changes, Nystagmus: vestibular nystagmus. vertigo worse with looking to right side. 19:05 Abdomen/GI: Rectal exam: the exam is deferred, because of patient request. 19:05 Neuro: Orientation: is normal, Motor: is normal, moves all fours, Sensation: is normal, no obvious gross deficits, Gait: is steady, at a normal pace, without difficulty. Vital Signs: 17:27 BP 136 / 93; Pulse 87; Resp 18; Temp 97.6(TE); Pulse Ox 100% on R/A; Weight 127.01 kg; ss Height 5 ft. 8 in. (172.72 cm); Pain 0/10; 19:14 BP 131 / 76; Pulse 73; Resp 18; Temp 98; Pulse Ox 97% on R/A; mg2 21:13 BP 122 / 78; Pulse 71; Resp 18; Temp 98; Pulse Ox 100% on R/A; Pain 0/10; mg2 17:27 Body Mass Index 42.57 (127.01 kg, 172.72 cm) ss MDM: 18:12 Patient medically screened. pm1 20:31 Data reviewed: vital signs. Data interpreted: Pulse oximetry: on room air is 97 %. pm1 Interpretation: normal. Counseling: I had a detailed discussion with the patient and/or guardian regarding: the historical points, exam findings, and any diagnostic results supporting the discharge/admit diagnosis, lab results, radiology results, the need for outpatient follow up, to return to the emergency department if symptoms worsen or persist or if there are any questions or concerns that arise at home. 01/11 18:29 Order name: Basic Metabolic Panel; Complete Time: 19:49 pm1 01/11 18:29 Order name: CBC with Diff; Complete Time: 19:07 pm1 01/11 18:29 Order name: LFT's; Complete Time: 19:49 pm1 01/11 18:29 Order name: Magnesium; Complete Time: 19:49 pm1 01/11 18:29 Order name: NT PRO-BNP; Complete Time: 19:49 pm1 01/11 18:29 Order name: PT-INR; Complete Time: 19:17 pm1 01/11 18:29 Order name: Troponin (emerg Dept Use Only); Complete Time: 19:49 pm1 01/11 18:29 Order name: XRAY Chest (1 view); Complete Time: 19:58 pm1 01/11 18:29 Order name: EKG; Complete Time: 18:30 pm1 01/11 18:29 Order name: Cardiac monitoring; Complete Time: 18:37 pm1 01/11 18:29 Order name: EKG - Nurse/Tech; Complete Time: 18:37 pm1 01/11 18:29 Order name: CT Head Brain wo Cont; Complete Time: 19:49 pm1 01/11 18:29 Order name: IV Saline Lock; Complete Time: 18:37 pm1 01/11 18:29 Order name: Labs collected and sent; Complete Time: 18:37 pm1 01/11 18:29 Order name: O2 Per Protocol; Complete Time: 18:37 pm1 01/11 18:29 Order name: O2 Sat Monitoring; Complete Time: 18:37 pm1 Administered Medications: 19:21 Drug: Zofran 4 mg Route: IVP; Site: left hand; mg2 21:16 Follow up: Response: No adverse reaction; Marked relief of symptoms mg2 20:34 Drug: Valium 5 mg Route: PO; mg2 21:16 Follow up: Response: No adverse reaction; Marked relief of symptoms mg2 Disposition: 01/12 16:28 Co-signature as Attending Physician, Isaac Candelario MD. ashley Disposition: 01/11/19 20:32 Discharged to Home. Impression: Benign Positional Vertigo, Chest pain, unspecified. - Condition is Stable. - Discharge Instructions: Benign Positional Vertigo, Nonspecific Chest Pain. - Prescriptions for Valium 5 mg Oral Tablet - take 1 tablet by ORAL route every 8 hours As needed; 20 tablet. - Medication Reconciliation Form, Thank You Letter, Antibiotic Education, Prescription Opioid Use form. - Follow up: Private Physician; When: 2 - 3 days; Reason: Recheck today's complaints, Continuance of care, Re-evaluation by your physician. Follow up: Emergency Department; When: As needed; Reason: Worsening of condition. - Problem is new. - Symptoms have improved. Signatures: Dispatcher [employer] EDMS Mayda Mak RN RN Jered Perkins, HAND IRONER HAND IRONER pm1 Isaac Candelario MD MD Grady Prather RN RN mg2 Corrections: (The following items were deleted from the chart) 01/11 21:18 20:32 01/11/2019 20:32 Discharged to Home. Impression: Benign Positional Vertigo; Chest mg2 pain, unspecified. Condition is Stable. Forms are Medication Reconciliation Form, Thank You Letter, Antibiotic Education, Prescription Opioid Use. Follow up: Private Physician; When: 2 - 3 days; Reason: Recheck today's complaints, Continuance of care, Re-evaluation by your physician. Follow up: Emergency Department; When: As needed; Reason: Worsening of condition. Problem is new. Symptoms have improved. pm1
[2019-01-11] MEDS ORDERED: DIAZEPAM 5 MG TABLET ONE (20:46)
[2019-01-11 21:32] VITALS: TEMP 98
[2019-01-11 21:34] VITALS: BP 122/78; O2SAT 100
--- NOTE | 2019-01-12 14:26 | EKG ---
Test Date: 2019-01-11 Test Time: 18:37:16 Insight Director: HEDYT MEASUREMENT RESULTS: Intervals: Rate: 78 UT: 164 QRSD: 100 QT: 372 QTc: 424 [place]: P: 33 UT: 164 QRS: 11 T: 54 INTERPRETIVE STATEMENTS: Normal sinus rhythm Normal ECG Compared to ECG 07/21/2018 20:13:36 No significant changes Electronically Signed On 01-12-19 14:26:16 CDT by Scooter Moss
== END 2019-01-11 21:18 | disposition home or self-care (01) ==
LOC: ER 17:07
DX: H81.10 Benign paroxysmal vertigo, unspecified ear (principal); F17.210 Nicotine dependence, cigarettes, uncomplicated
CPT/HCPCS: 36415; 70450; 71045; 80048; 80076; 83735; 83880; 84484; 85025; 85610; 93005; 96374; 99284; J2405

== ENCOUNTER 2019-03-23 16:19 | Emergency (ER) | payer OTHER ==
[2019-03-23] MEDS ORDERED: MORPHINE 4 MG/ML SYR ONE ×2 (17:18→17:55)
[2019-03-23] MEDS ORDERED: PANTOPRAZOLE 40 MG INJ ONE (17:18)
[2019-03-23] MEDS ORDERED: NA CHLORIDE 0.9% 1,000 ML ONE ×2 (17:18→19:25)
[2019-03-23] MEDS ORDERED: ONDANSETRON 4 MG/2 ML VIAL ONE (17:18)
[2019-03-23 17:43] LABS: Albumin 4.2 g/dL (3.4-5.0); Bilirubin Direct 0.2 mg/dL (0-0.2); Bilirubin Total 0.9 mg/dL (0.2-1.0); Potassium 3.7 mmol/L (3.5-5.1); Protein, Total 8.5 g/dL (6.4-8.2)
[2019-03-23 17:44] LABS: Absolute Lymphocytes (CBC) 1.7 K/uL (0.7-4.9); Basophils % 0.2 % (0-1.3); Hematocrit 47.6 % (39.6-49.0); Lymphocytes % 13.7 % (15.3-44.8); MPV 7.5 fL (7.6-11.3); RBC Red Blood Cell Count 5.39 M/uL (4.33-5.43)
[2019-03-23 17:52] LABS: Urine RBC <5 /HPF (NONE SEEN)
[2019-03-23 17:53] LABS: Urine Bacteria <20 /HPF (NONE SEEN); Urine Culture Reflex Order NOT NEEDED; Urine Mucus 2+ /HPF (NONE SEEN)
[2019-03-23 18:13] LABS: Urine Blood TRACE (NEG); Urine Glucose NEGATIVE (NEG); Urine Protein 2+ (NEG); Urine Specific Gravity 1.025 (1.005-1.030); Urine pH 6.5 (5.0-7.0)
[2019-03-23] MEDS ORDERED: KETOROLAC 30 MG/ML INJ ONE (18:41)
--- NOTE | 2019-03-23 18:50 | RAD REPORT ---
EXAM DESCRIPTION: CT - Stone Protocol - 03/23/2019 6:02 pm CLINICAL HISTORY: Abdominal pain. Right upper quadrant pain COMPARISON: October 2018 TECHNIQUE: Computed axial tomography of the abdomen pelvis was obtained without oral or IV contrast. Lack of IV and oral contrast limits evaluation of solid organs, bowel, and vessels. Coronal reformat isac images were obtained and reviewed. All CT scans are performed using dose optimization technique as appropriate and may include automated exposure control or mA/KV adjustment according to patient size. FINDINGS: A renal calculus is not seen. An ureteral calculus is not noted. A bladder calculus is not present. The liver, spleen, pancreas and adrenals appear grossly normal There is no evidence of diverticulitis. The appendix appears normal Small inguinal hernias contain fat IMPRESSION: Negative for a genitourinary calculus
[2019-03-23] MEDS ORDERED: FENTANYL CITR 100 MCG/2 ML ONE (19:24)
[2019-03-23] MEDS ORDERED: DICYCLOMINE HCL 10 MG CAP ONE (19:25)
--- NOTE | 2019-03-23 20:13 | RAD REPORT ---
EXAM DESCRIPTION: US - Abdomen Exam Limited - 03/23/2019 8:06 pm CLINICAL HISTORY: Abdominal pain. COMPARISON: None. FINDINGS: The gallbladder wall is not thickened. A gallstone is not seen. The biliary tree is normal caliber. IMPRESSION: Unremarkable gallbladder ultrasound.
[2019-03-23] MEDS ORDERED: DIAZEPAM 10 MG/2 ML INJ SYRINGE ONE (20:46)
--- NOTE | 2019-03-23 21:23 | EDPHYS ---
Physician Documentation [facility] Name: Jose R Villela Age: 33 yrs Sex: Male : 1985 Arrival Date: 03/23/2019 Time: 16:18 Bed 24 Private MD: ED Physician Sampson King HPI: 03/23 15:05 This 33 yrs old Male presents to ER via Wheelchair with complaints of cp Abdominal Pain, Nausea, Diarrhea. 15:05 The patient presents with abdominal pain in the right upper quadrant, and right flank. cp Onset: The symptoms/episode began/occurred this morning, at 09:00. The symptoms do not radiate. Associated signs and symptoms: Pertinent positives: nausea and vomiting, Pertinent negatives: anorexia, blood in stools, chest pain, constipation, diarrhea, fever, shortness of breath, testicular pain. Historical: - Allergies: 16:30 No Known Allergies; aj1 - Home Meds: 16:30 [place] Oral [Active]; tizanidine [Active]; aj1 - PMHx: 16:30 None; aj1 - PSHx: 16:30 ACL reconstruction; aj1 - Immunization history:: Flu vaccine is up to date. - Social history:: Smoking status: Patient uses tobacco products, smokes one pack cigarettes per day. - Ebola Screening: : Patient denies travel to an Ebola-affected area in the 21 days before illness onset. ROS: 15:10 Constitutional: Negative for body aches, chills, fever, poor PO intake. cp 15:10 Eyes: Negative for injury, pain, redness, and discharge. cp 15:10 ENT: Negative for drainage from ear(s), ear pain, sore throat, difficulty swallowing, difficulty handling secretions. 15:10 Cardiovascular: Negative for chest pain, palpitations. 15:10 Respiratory: Negative for cough, shortness of breath, wheezing. Exam: 15:45 Constitutional: The patient appears in no acute distress, alert, awake, non-toxic, well cp developed, well nourished, diaphoretic, uncomfortable. 15:45 Head/Face: Normocephalic, atraumatic. cp 15:45 Eyes: Periorbital structures: appear normal, Conjunctiva: normal, no exudate, no injection, Sclera: no appreciated abnormality, Lids and lashes: appear normal, bilaterally. 15:45 ENT: External ear(s): are unremarkable, Nose: is normal, Mouth: Lips: moist, Oral mucosa: pink and intact, moist, Posterior pharynx: is normal, airway is patent, no erythema, no exudate. 15:45 Chest/axilla: Inspection: normal, Palpation: is normal, no crepitus, no tenderness. 15:45 Cardiovascular: Rate: normal, Rhythm: regular. 15:45 Respiratory: the patient does not display signs of respiratory distress, Respirations: normal, no use of accessory muscles, no retractions, no splinting, no tachypnea, labored breathing, is not present, Breath sounds: are clear throughout, no decreased breath sounds, no stridor, no wheezing. 15:45 Abdomen/GI: Inspection: abdomen appears normal, Bowel sounds: active, all quadrants, Palpation: soft, in all quadrants, severe abdominal tenderness, in the right upper quadrant, left upper quadrant and left lower quadrant, rebound tenderness, is not appreciated, voluntary guarding, is elicited in the right upper quadrant, left upper quadrant and left lower quadrant. 15:45 Back: pain, that is moderate, of the left mid back, ROM is painful. 15:45 Skin: no rash present. Vital Signs: 16:30 BP 149 / 82; Pulse 92; Resp 18; Temp 98.2(O); Pulse Ox 99% on R/A; Weight 129.27 kg aj1 (R); Height 5 ft. 9 in. (175.26 cm) (R); Pain 6/10; 17:00 BP 137 / 97; Pulse 83; Resp 16; Pulse Ox 98% on R/A; rv 18:28 BP 123 / 107; Pulse 67; Resp 16; Pulse Ox 98% on R/A; rv 20:33 BP 137 / 54; Pulse 67; Resp 16; Pulse Ox 98% on R/A; la1 21:00 BP 144 / 78; Pulse 65; Resp 16; Temp 98; Pulse Ox 99% on R/A; rv 16:30 Body Mass Index 42.09 (129.27 kg, 175.26 cm) [facility] MDM: 03/22 17:30 Differential diagnosis: cholecystitis, Cholelithiasis, diverticulitis, gastritis, cp pancreatitis, Peptic Ulcer Disease, Perf. Duodenal Ulcer, Perf. Gastric Ulcer, Testicular Torsion, Ureterolithiasis, urinary tract infection. 03/23 16:32 Patient medically screened. cp 21:23 Data reviewed: vital signs, nurses notes. Data interpreted: Pulse oximetry: on room air snw is 98 %. Interpretation: normal. Counseling: I had a detailed discussion with the patient and/or guardian regarding: the historical points, exam findings, and any diagnostic results supporting the discharge/admit diagnosis, lab results, radiology results, the need for outpatient follow up, to return to the emergency department if symptoms worsen or persist or if there are any questions or concerns that arise at home. Special discussion: Based on the patient's Hx, exam, and Dx evaluation, there is no indication for emergent surgery or inpatient Tx. It is understood by the patient/guardian that if the Sx's persist or worsen they need to return immediately for re-evaluation. I have referred the patient to see his PCP for further evaluation of high blood pressure. Based on the history and exam findings, there is no indication for further emergent testing or inpatient evaluation. I discussed with the patient/guardian the need to see the primary care provider for further evaluation of the symptoms. 03/23 16:56 Order name: Urine Microscopic Only; Complete Time: 18:56 03/23 16:56 Order name: Basic Metabolic Panel; Complete Time: 18:56 03/23 18:53 Interpretation: Normal except: GFR 82. 03/23 16:56 Order name: CBC with Diff; Complete Time: 18:56 03/23 18:53 Interpretation: Normal except: WBC 12.7; MPV 7.5; TREY% 80.2; LYM% 13.7; NEUT A 10.2. 03/23 16:56 Order name: Creatinine for Radiology; Complete Time: 18:56 03/23 16:56 Order name: Hepatic Function; Complete Time: 18:56 03/23 18:53 Interpretation: Normal except: ALT 92; TP 8.5; GLOB 4.3; A/G 1.0. 03/23 16:56 Order name: Lipase; Complete Time: 18:56 03/23 17:34 Order name: Urine Dipstick--Ancillary (enter results); Complete Time: 18:56 eb 03/23 18:54 Interpretation: Normal except: UBLD TRACE; UPROT 2+. 03/23 17:37 Order name: CT Stone Protocol; Complete Time: 18:56 cp 03/23 19:01 Order name: US Abdomen Limited: RUQ; Complete Time: 20:16 cp 03/23 16:56 Order name: Urine Dipstick-Ancillary (obtain specimen); Complete Time: 18:24 cp 03/23 16:56 Order name: IV Saline Lock; Complete Time: 17:11 cp 03/23 16:56 Order name: Labs collected and sent; Complete Time: 17:11 cp Administered Medications: 17:08 Drug: morphine 4 mg Route: IVP; Site: right wrist; la1 18:25 Follow up: Response: No adverse reaction; Pain is unchanged, physician notified rv 17:08 Drug: NS 0.9% 1000 ml Route: IV; Rate: 1 bolus; Site: right wrist; la1 18:26 Follow up: IV Status: Completed infusion rv 20:35 Follow up: IV Status: Completed infusion la1 17:09 Drug: Zofran 4 mg Route: IVP; Site: right wrist; la1 18:25 Follow up: Response: No adverse reaction rv 17:09 Drug: ProTONIX 40 mg Route: IVP; Site: right wrist; la1 18:25 Follow up: Response: No adverse reaction rv 17:39 Drug: morphine 4 mg Route: IVP; Site: right forearm; rv 18:26 Follow up: Response: No adverse reaction; Marked relief of symptoms; Pain is unchanged, rv physician notified 18:24 Drug: TORadol 30 mg Route: IVP; Site: right forearm; rv 20:34 Follow up: Response: No adverse reaction; Pain is decreased la1 19:16 Drug: NS 0.9% 1000 ml Route: IV; Rate: 1 bolus; Site: right wrist; la1 20:34 Follow up: IV Status: Completed infusion la1 19:17 Drug: Bentyl 20 mg Route: PO; la1 20:34 Follow up: Response: No adverse reaction la1 19:17 Drug: fentaNYL (PF) 25 mcg Route: IVP; Site: right forearm; la1 20:34 Follow up: Response: No adverse reaction; Pain is decreased la1 20:33 Drug: Valium 2 mg Route: IVP; Site: right wrist; la1 20:34 Follow up: Response: No adverse reaction la1 Disposition: 03/24 11:15 Co-signature as Attending Physician, Sampson King MD I agree with the assessment and [facility] plan of care. Disposition: 03/23/19 21:22 Discharged to Home. Impression: Upper abdominal pain, unspecified, Vomiting, unspecified. - Condition is Stable. - Discharge Instructions: Abdominal Pain, Adult, Fat and Cholesterol Restricted Diet, Nausea and Vomiting, Adult, Hand Washing, Rehydration, Adult. - Prescriptions for Bentyl 20 mg Oral Tablet - take 1 tablet by ORAL route every 6 hours As needed; 20 tablet. promethazine 25 mg Oral Tablet - take 1 tablet by ORAL route every 6 hours As needed; 20 tablet. - Work release form, Medication Reconciliation Form, Thank You Letter, Antibiotic Education, Prescription Opioid Use form. - Follow up: Emergency Department; When: As needed; Reason: Worsening of condition. Follow up: Private Physician; When: 24 Hours; Reason: Recheck today's complaints, Continuance of care, Re-evaluation by your physician. Signatures: Dispatcher [employer] EDZenobia Amato, RN RN aj1 Sampson King MD MD cha Therrien, Shelly, NURSE OBGYN-C NURSE OBGYN-Csnw Vinnie Selby RN RN la1 Sampson Del Valle PA PA cp Valerio Cruz, RN RN rv Corrections: (The following items were deleted from the chart) 03/23 21:40 21:22 03/23/2019 21:22 Discharged to Home. Impression: Upper abdominal pain, rv unspecified; Vomiting, unspecified. Condition is Stable. Forms are Medication Reconciliation Form, Thank You Letter, Antibiotic Education, Prescription Opioid Use. Follow up: Emergency Department; When: As needed; Reason: Worsening of condition. Follow up: Private Physician; When: 24 Hours; Reason: Recheck today's complaints, Continuance of care, Re-evaluation by your physician. snw
--- NOTE | 2019-03-23 21:23 | ER ---
Nurse's Notes [facility] Name: Jose R Villela Age: 33 yrs Sex: Male : 1985 Arrival Date: 03/23/2019 Time: 16:18 Bed 24 Private MD: Diagnosis: Upper abdominal pain, unspecified;Vomiting, unspecified Presentation: 03/23 16:27 Presenting complaint: states: N/V/D, RUQ abdominal pain that radiates to the his aj1 side since 0900 this morning. Patient appears pale, diaphoretic. Transition of care: patient was not received from another setting of care. Onset of symptoms was March 23, 2019 at 09:00. Risk Assessment: Do you want to hurt yourself or someone else? Patient reports no desire to harm self or others. Initial Sepsis Screen: Does the patient meet any 2 criteria? HR > 90 bpm. No. Patient's initial sepsis screen is negative. Does the patient have a suspected source of infection? Yes: Acute abdominal pain. Care prior to arrival: None. 16:27 Method Of Arrival: Wheelchair aj1 16:27 Acuity: LUIS 2 aj1 Triage Assessment: 16:30 General: Appears in no apparent distress. uncomfortable, Behavior is calm, cooperative, aj1 appropriate for age. Pain: Complains of pain in right upper quadrant Pain radiates to anterior aspect of right lateral abdomen Pain currently is 6 out of 10 on a pain scale. Neuro: Level of Consciousness is awake, alert, obeys commands. Cardiovascular: Patient's skin is warm and dry. Respiratory: Airway is patent Respiratory effort is even, unlabored, Respiratory pattern is regular, symmetrical. GI: Reports upper abdominal pain, diarrhea, nausea, vomiting. Historical: - Allergies: 16:30 No Known Allergies; aj1 - Home Meds: 16:30 [place] Oral [Active]; tizanidine [Active]; aj1 - PMHx: 16:30 None; aj1 - PSHx: 16:30 ACL reconstruction; aj1 - Immunization history:: Flu vaccine is up to date. - Social history:: Smoking status: Patient uses tobacco products, smokes one pack cigarettes per day. - Ebola Screening: : Patient denies travel to an Ebola-affected area in the 21 days before illness onset. Screenin:47 Abuse screen: Denies injuries from another. Nutritional screening: No deficits noted. la1 Tuberculosis screening: No symptoms or risk factors identified. Fall Risk None identified. Assessment: 16:46 General: Appears uncomfortable. Pain: Complains of pain in anterior aspect of right la1 lateral abdomen and abdomen and right upper quadrant Pain currently is 8 out of 10 on a pain scale. Neuro: Level of Consciousness is awake, alert, obeys commands, Oriented to person, place, time, situation. Cardiovascular: Capillary refill < 3 seconds Patient's skin is warm and dry. Respiratory: Airway is patent Respiratory effort is even, unlabored, Respiratory pattern is regular, symmetrical, Breath sounds are clear bilaterally. GI: Abdomen is non-distended, obese, Bowel sounds present X 4 quads. Abd is soft X 4 quads Abdomen is tender to palpation in epigastric area, right upper quadrant and left upper quadrant. : No signs and/or symptoms were reported regarding the genitourinary system. 18:29 Reassessment: Patient appears in no apparent distress at this time. Patient and/or rv family updated on plan of care and expected duration. Pain level reassessed. Patient is alert, oriented x 3, equal unlabored respirations, skin warm/dry/pink. patient is still complaining of headache. referred to Sampson Del Valle. Vital Signs: 16:30 BP 149 / 82; Pulse 92; Resp 18; Temp 98.2(O); Pulse Ox 99% on R/A; Weight 129.27 kg aj1 (R); Height 5 ft. 9 in. (175.26 cm) (R); Pain 6/10; 17:00 BP 137 / 97; Pulse 83; Resp 16; Pulse Ox 98% on R/A; rv 18:28 BP 123 / 107; Pulse 67; Resp 16; Pulse Ox 98% on R/A; rv 20:33 BP 137 / 54; Pulse 67; Resp 16; Pulse Ox 98% on R/A; la1 21:00 BP 144 / 78; Pulse 65; Resp 16; Temp 98; Pulse Ox 99% on R/A; rv 16:30 Body Mass Index 42.09 (129.27 kg, 175.26 cm) aj1 ED Course: 16:18 Patient arrived in ED. as 16:29 Triage completed. aj1 16:30 Arm band placed on Patient placed in an exam room. aj1 16:31 Page, Sampson, PA is PHCP. cp 16:31 Sampson King MD is Attending Physician. cp 16:32 Vinnie Selby RN is Primary Nurse. la1 16:47 Call light in reach. Side rails up X 1. la1 16:47 Inserted saline lock: 22 gauge in right wrist, using aseptic technique. Blood collected.la1 18:01 CT completed. Patient tolerated procedure well. Patient moved back from CT. bq 18:03 CT Stone Protocol In Process Unspecified. EDMS 19:37 PHCP role handed off by Sampson Del Valle PA snw 19:37 Bel Rodriguez FNP-C is PHCP. snw 20:05 Ultrasound completed. Patient tolerated well. sg3 20:06 US Abdomen Limited: RUQ In Process Unspecified. EDMS 20:33 No provider procedures requiring assistance completed. la1 21:33 IV discontinued, intact, bleeding controlled, No redness/swelling at site. Pressure rv dressing applied. Administered Medications: 17:08 Drug: morphine 4 mg Route: IVP; Site: right wrist; la1 18:25 Follow up: Response: No adverse reaction; Pain is unchanged, physician notified rv 17:08 Drug: NS 0.9% 1000 ml Route: IV; Rate: 1 bolus; Site: right wrist; la1 18:26 Follow up: IV Status: Completed infusion rv 20:35 Follow up: IV Status: Completed infusion la1 17:09 Drug: Zofran 4 mg Route: IVP; Site: right wrist; la1 18:25 Follow up: Response: No adverse reaction rv 17:09 Drug: ProTONIX 40 mg Route: IVP; Site: right wrist; la1 18:25 Follow up: Response: No adverse reaction rv 17:39 Drug: morphine 4 mg Route: IVP; Site: right forearm; rv 18:26 Follow up: Response: No adverse reaction; Marked relief of symptoms; Pain is unchanged, rv physician notified 18:24 Drug: TORadol 30 mg Route: IVP; Site: right forearm; rv 20:34 Follow up: Response: No adverse reaction; Pain is decreased la1 19:16 Drug: NS 0.9% 1000 ml Route: IV; Rate: 1 bolus; Site: right wrist; la1 20:34 Follow up: IV Status: Completed infusion la1 19:17 Drug: Bentyl 20 mg Route: PO; la1 20:34 Follow up: Response: No adverse reaction la1 19:17 Drug: fentaNYL (PF) 25 mcg Route: IVP; Site: right forearm; la1 20:34 Follow up: Response: No adverse reaction; Pain is decreased la1 20:33 Drug: Valium 2 mg Route: IVP; Site: right wrist; la1 20:34 Follow up: Response: No adverse reaction la1 Outcome: 21:22 Discharge ordered by MD. rutherford 21:33 Discharged to home ambulatory. rv 21:33 Condition: good 21:33 Discharge instructions given to patient, family, Instructed on discharge instructions, follow up and referral plans. medication usage, Demonstrated understanding of instructions, follow-up care, medications, Prescriptions given X 2. 21:40 Patient left the ED. rv Signatures: Dispatcher [employer] EDMS Zenobia Delatorre RN RN aj1 Ble Rodriguez, FIELD PARTY MANAGER-C FIELD PARTY MANAGER-Csnw Sobeida Wilson Amelia as Attema, Lee, RN RN la1 Sampson Del Valle PA PA Salma Chavez sg3 Valerio Cruz RN RN rv Corrections: (The following items were deleted from the chart) 16:32 16:27 Presenting complaint: states: N/V/D, RUQ abdominal pain that radiates to the aj1 his side since 0900 this morning. aj1 16:32 16:27 Acuity: LUIS 3 aj1 aj1
[2019-03-23 22:51] VITALS: BP 144/78; TEMP 98; O2SAT 99
== END 2019-03-23 21:40 | disposition home or self-care (01) ==
LOC: ER 16:19
DX: R11.10 Vomiting, unspecified (principal); F17.210 Nicotine dependence, cigarettes, uncomplicated
CPT/HCPCS: 36415; 74176; 76377; 76705; 80048; 80076; 81003; 81015; 83690; 85025; 96361; 96374; 96375; 99284; C9113; J2405; J3010; J3360; J7030

== ENCOUNTER 2019-07-25 15:34 | Observation (INO) | payer OTHER ==
--- OUTSIDE RECORDS SUMMARY | 2019-07-25 15:37 | XMS REPORT ---
:1985 [facility] Address [address] [place] [address] Dr. [place]. [address] [place] [id number] Care Team Providers Name Role Phone Unavailable Unavailable Unavailable Problems This patient has no known problems. Allergies, Adverse Reactions, Alerts This patient has no known allergies or adverse reactions. Medications This patient has no known medications.
[2019-07-25] MEDS ORDERED: ASPIRIN 81 MG CHEWABLE TABLET ONE (15:59)
[2019-07-25] MEDS ORDERED: NA CHLORIDE 0.9% 1,000 ML ONE (15:59)
[2019-07-25 16:50] LABS: Protime INR 1.01
[2019-07-25 16:52] LABS: Absolute Lymphocytes (CBC) 2.9 K/uL (0.7-4.9); Basophils % 0.6 % (0-1.3); Hematocrit 48.2 % (39.6-49.0); Lymphocytes % 30.2 % (15.3-44.8); RBC Red Blood Cell Count 5.47 M/uL (4.33-5.43)
[2019-07-25 16:55] LABS: ALT/SGPT 105 U/L (12-78); AST/SGOT 32 U/L (15-37); Alkaline Phosphatase 86 U/L (45-117); BUN Blood Urea Nitrogen 10 mg/dL (7-18); Bicarbonate 25 mmol/L (21-32); Bilirubin Direct < 0.1 mg/dL (0-0.2); Bilirubin Total 0.4 mg/dL (0.2-1.0); Glucose Level 86 mg/dL (74-106); Magnesium 2.2 mg/dL (1.8-2.4); NT PRO-BNP 28 pg/mL (<125); Potassium 3.7 mmol/L (3.5-5.1); Protein, Total 7.8 g/dL (6.4-8.2); Sodium Level 137 mmol/L (136-145); Troponin (Emerg Dept Use Only) < 0.02 ng/mL (0.0-0.045)
[2019-07-25 17:13] LABS: Barbiturates NEGATIVE (NEGATIVE); Benzodiazepines NEGATIVE (NEGATIVE); Cocaine NEGATIVE (NEGATIVE); METHAMPHETAM NEGATIVE (NEGATIVE); Methadone NEGATIVE (NEGATIVE); Opiates NEGATIVE (NEGATIVE); Phencyclidine NEGATIVE (NEGATIVE); THC Cannibis NEGATIVE (NEGATIVE)
--- NOTE | 2019-07-25 17:22 | ER ---
Nurse's Notes [facility] Name: Jose R Villela Age: 33 yrs Sex: Male : 1985 Arrival Date: 07/25/2019 Time: 15:37 Bed 13 Private MD: Diagnosis: Chest pain, unspecified;Tobacco abuse counseling;Tobacco use Presentation: 07/25 15:38 Presenting complaint: Patient states: it doesn't hurt that bad anymore but my chest did tw2 hurt and radiates down my left arm Significant other states: he was pouring down sweat and spacing out as we were sitting outside. Transition of care: patient was not received from another setting of care. Onset of symptoms was July 25, 2019. Risk Assessment: Do you want to hurt yourself or someone else? Patient reports no desire to harm self or others. Initial Sepsis Screen: Does the patient meet any 2 criteria? No. Patient's initial sepsis screen is negative. Does the patient have a suspected source of infection? No. Patient's initial sepsis screen is negative. Care prior to arrival: None. 15:38 Method Of Arrival: Ambulatory tw2 15:38 Acuity: LUIS 3 tw2 15:38 Presenting complaint: Significant other states: we went to [place] [facility] because i was tw2 worried but they told me i couldn't bring the kids back and got an attitude with me so we left and came here. Triage Assessment: 15:39 General: Appears in no apparent distress. Behavior is calm, cooperative, appropriate tw2 for age. Pain: Complains of pain in chest. Cardiovascular: Reports chest pain. Historical: - Allergies: 15:41 No Known Allergies; tw2 - Home Meds: 15:41 tizanidine [Active]; [place] Oral [Active]; tw2 - PMHx: 17:46 None; ss - PSHx: 15:41 ACL reconstruction; tw2 - Immunization history:: Adult Immunizations. - Social history:: Smoking status: Patient uses tobacco products, smokes one pack cigarettes per day. - Ebola Screening: : Patient denies travel to an Ebola-affected area in the 21 days before illness onset. - Family history:: not pertinent. Screenin:43 Abuse screen: Denies threats or abuse. Nutritional screening: No deficits noted. tw2 Tuberculosis screening: No symptoms or risk factors identified. Fall Risk None identified. Assessment: 15:44 Pain: Pain radiates to left arm Pain began suddenly. tw2 15:45 General: Appears in no apparent distress. comfortable, Behavior is calm, cooperative, rb1 Reports getting hot and sweaty while sitting down Denies fever, reports that the pt. speech is slower than normal. Pain: Complains of pain in chest Pain radiates to left arm Pain currently is 2 out of 10 on a pain scale. Neuro: Level of Consciousness is awake, alert, obeys commands, Oriented to person, place, time, situation. Cardiovascular: Capillary refill < 3 seconds is brisk in bilateral fingers. Respiratory: Airway is patent Respiratory effort is even, unlabored, Respiratory pattern is regular, symmetrical. GI: No signs and/or symptoms were reported involving the gastrointestinal system. : No signs and/or symptoms were reported regarding the genitourinary system. Derm: Skin is pink, warm \\T\\ dry. Musculoskeletal: wearing a brace on the right knee from previous injury. 16:41 Reassessment: Patient appears in no apparent distress at this time. No changes from rb1 previously documented assessment. 17:39 Reassessment: Patient appears in no apparent distress at this time. Patient and/or rb1 family updated on plan of care and expected duration. Pain level reassessed. Patient is alert, oriented x 3, equal unlabored respirations, skin warm/dry/pink. Family at the bedside. 17:50 Reassessment: Dr. Lynne is at the pt. bedside. rb1 18:01 Reassessment: Spoke to Dr. Lynne by telephone to request Tylenol for a headache; rb1 received order for Tylenol 650 mg PO x 1. 100% verbal read back. He will put orders in for the floor as well. 18:44 Reassessment: Patient appears in no apparent distress at this time. Patient and/or rb1 family updated on plan of care and expected duration. Pain level reassessed. Patient is alert, oriented x 3, equal unlabored respirations, skin warm/dry/pink. Pain 8/10 due to a headache. 18:50 Reassessment: Called to give report but was unable to at this time. I spoke with rb1 Jose RN he stated, "The nurses are doing shift huddle right now, so Ofelia will have to call you back.". 19:13 Reassessment: Patient appears in no apparent distress at this time. Patient is alert, aa1 oriented x 3, equal unlabored respirations, skin warm/dry/pink. Report given to KEM Gilbert on 4th floor Patient denies pain at this time. Vital Signs: 15:39 BP 152 / 97; Pulse 97; Resp 18; Temp 99.9(O); Pulse Ox 100% on R/A; Weight 127.01 kg tw2 (R); Pain 2/10; 16:39 BP 118 / 67; Pulse 87; Resp 15; Pulse Ox 97% on R/A; Pain 2/10; rb1 17:39 BP 111 / 63; Pulse 81; Resp 19; Pulse Ox 98% on R/A; Pain 2/10; rb1 18:39 BP 119 / 52; Pulse 78; Resp 19; Temp 98.6(O); Pulse Ox 98% on R/A; Pain 8/10; rb1 ED Course: 15:37 Patient arrived in ED. mr 15:39 Triage completed. tw2 15:39 Arm band placed on. tw2 15:41 Sampson King MD is Attending Physician. constanza 15:41 Bed in low position. Call light in reach. podiatric assistant on. Pulse ox on. NIBP on. tw2 15:42 Dee Cason RN is Primary Nurse. rb1 15:43 Patient maintains SpO2 saturation greater than 95% on room air. tw2 15:57 EKG done, by ED staff, reviewed by Sampson King MD. jp3 16:09 Missed attempt(s): 22 gauge in right antecubital area. Bleeding controlled, band aid rb1 applied, catheter tip intact. 16:25 Inserted saline lock: 22 gauge in right wrist, using aseptic technique. Blood collected.rb1 17:17 Natalya Lynne MD is Hospitalizing Provider. constanza 19:35 No provider procedures requiring assistance completed. Patient admitted, IV remains in aa1 place. Administered Medications: 14:09 Drug: NS 0.9% 1000 ml Route: IV; Rate: 125 ml/hr; Site: right wrist; rb1 19:30 Follow up: IV Status: Infusion continued upon admission aa1 16:00 Drug: Aspirin Chewable Tablet 324 mg Route: PO; rb1 16:30 Follow up: Response: No adverse reaction rb1 17:45 Drug: Lovenox 100 mg Route: Sub-Q; Site: right lower abdomen; rb1 18:00 Follow up: Response: No adverse reaction rb1 17:45 Drug: Pepcid 20 mg Route: IVP; Site: right antecubital; rb1 18:00 Follow up: Response: No adverse reaction rb1 18:09 Drug: Tylenol 650 mg Route: PO; rb1 19:00 Follow up: Response: No adverse reaction; Pain is decreased aa1 Outcome: 17:21 Decision to Hospitalize by Provider. constanza 19:35 Admitted to Tele accompanied by tech, family with patient, via wheelchair, room 405, aa1 with chart, Report called to KEM Gilbert 19:35 Condition: good 19:35 Instructed on the need for admit, Demonstrated understanding of instructions. 19:36 Patient left the ED. aa1 Signatures: Orly Nicolas RN RN aa1 Sampson King MD MD cha Rivera, Adore mr Mak, Mayda, KEM RN ss Dee Cason RN RN rb1 Oneyda Soto RN RN 2 Lorne Galvez 3
--- NOTE | 2019-07-25 17:23 | EDPHYS ---
Physician Documentation [facility] Name: Jose R Villela Age: 33 yrs Sex: Male : 1985 Arrival Date: 07/25/2019 Time: 15:37 Bed 13 Private MD: ED Physician Sampson King HPI: 07/25 15:55 This 33 yrs old Male presents to ER via Ambulatory with complaints of Chest constanza Pain, Arm Pain. 15:55 The patient or guardian reports chest pain that is located primarily in the anterior constanza chest wall, left. The pain radiates to the left arm, the left shoulder. Associated signs and symptoms: The patient has no apparent associated signs or symptoms. The chest pain is described as a pressure. Modifying factors: The symptoms are alleviated by nothing. the symptoms are aggravated by nothing. Severity of pain: At its worst the pain was mild moderate in the emergency department the pain is unchanged. The patient has experienced similar episodes in the past, a few times. Historical: - Allergies: 15:41 No Known Allergies; tw2 - Home Meds: 15:41 tizanidine [Active]; [place] Oral [Active]; tw2 - PMHx: 17:46 None; ss - PSHx: 15:41 ACL reconstruction; tw2 - Immunization history:: Adult Immunizations. - Social history:: Smoking status: Patient uses tobacco products, smokes one pack cigarettes per day. - Ebola Screening: : Patient denies travel to an Ebola-affected area in the 21 days before illness onset. - Family history:: not pertinent. ROS: 15:55 Constitutional: Negative for fever, chills, and weight loss, Eyes: Negative for injury, constanza pain, redness, and discharge, ENT: Negative for injury, pain, and discharge, Neck: Negative for injury, pain, and swelling, Respiratory: Negative for shortness of breath, cough, wheezing, and pleuritic chest pain, Abdomen/GI: Negative for abdominal pain, nausea, vomiting, diarrhea, and constipation, Back: Negative for injury and pain, : Negative for injury, bleeding, discharge, and swelling, MS/Extremity: Negative for injury and deformity, Skin: Negative for injury, rash, and discoloration, Neuro: Negative for headache, weakness, numbness, tingling, and seizure, Psych: Negative for depression, anxiety, suicide ideation, homicidal ideation, and hallucinations, Allergy/Immunology: Negative for hives, rash, and allergies, Endocrine: Negative for neck swelling, polydipsia, polyuria, polyphagia, and marked weight changes, Hematologic/Lymphatic: Negative for swollen nodes, abnormal bleeding, and unusual bruising. 15:55 Cardiovascular: Positive for chest pain. Exam: 15:55 Constitutional: This is a well developed, well nourished patient who is awake, alert, constanza and in no acute distress. Head/Face: Normocephalic, atraumatic. Eyes: Pupils equal round and reactive to light, extra-ocular motions intact. Lids and lashes normal. Conjunctiva and sclera are non-icteric and not injected. Cornea within normal limits. Periorbital areas with no swelling, redness, or edema. ENT: Nares patent. No nasal discharge, no septal abnormalities noted. Tympanic membranes are normal and external auditory canals are clear. Oropharynx with no redness, swelling, or masses, exudates, or evidence of obstruction, uvula midline. Mucous membranes moist. Neck: Trachea midline, no thyromegaly or masses palpated, and no cervical lymphadenopathy. Supple, full range of motion without nuchal rigidity, or vertebral point tenderness. No Meningismus. Chest/axilla: Normal chest wall appearance and motion. Nontender with no deformity. No lesions are appreciated. Cardiovascular: Regular rate and rhythm with a normal S1 and S2. No gallops, murmurs, or rubs. Normal PMI, no JVD. No pulse deficits. Respiratory: Lungs have equal breath sounds bilaterally, clear to auscultation and percussion. No rales, rhonchi or wheezes noted. No increased work of breathing, no retractions or nasal flaring. Abdomen/GI: Soft, non-tender, with normal bowel sounds. No distension or tympany. No guarding or rebound. No evidence of tenderness throughout. Back: No spinal tenderness. No costovertebral tenderness. Full range of motion. Skin: Warm, dry with normal turgor. Normal color with no rashes, no lesions, and no evidence of cellulitis. MS/ Extremity: Pulses equal, no cyanosis. Neurovascular intact. Full, normal range of motion. Neuro: Awake and alert, GCS 15, oriented to person, place, time, and situation. Cranial nerves II-XII grossly intact. Motor strength 5/5 in all extremities. Sensory grossly intact. Cerebellar exam normal. Normal gait. Psych: Awake, alert, with orientation to person, place and time. Behavior, mood, and affect are within normal limits. 15:55 Musculoskeletal/extremity: DVT Exam: No signs of deep vein thrombosis. no pain, no swelling, no tenderness, negative Homans' sign noted on exam, no appreciated bluish discoloration, no erythema, no increased warmth. Vital Signs: 15:39 BP 152 / 97; Pulse 97; Resp 18; Temp 99.9(O); Pulse Ox 100% on R/A; Weight 127.01 kg tw2 (R); Pain 2/10; 16:39 BP 118 / 67; Pulse 87; Resp 15; Pulse Ox 97% on R/A; Pain 2/10; rb1 17:39 BP 111 / 63; Pulse 81; Resp 19; Pulse Ox 98% on R/A; Pain 2/10; rb1 18:39 BP 119 / 52; Pulse 78; Resp 19; Temp 98.6(O); Pulse Ox 98% on R/A; Pain 8/10; rb1 MDM: 15:42 Patient medically screened. [facility] 15:58 Data reviewed: vital signs, nurses notes, lab test result(s), EKG, radiologic studies, [facility] plain films. 07/25 15:54 Order name: Basic Metabolic Panel [facility] 07/25 15:54 Order name: CBC with Diff [facility] 07/25 15:54 Order name: LFT's [facility] 07/25 15:54 Order name: Magnesium [facility] 07/25 15:54 Order name: NT PRO-BNP [facility] 07/25 15:54 Order name: PT-INR [facility] 07/25 15:54 Order name: Troponin (emerg Dept Use Only) [facility] 07/25 15:54 Order name: UDS [facility] 07/25 15:54 Order name: ETOH Level [facility] 07/25 16:50 Order name: Alcohol Serum/Plasma; Complete Time: 16:54 [facility] 07/25 16:55 Order name: CBC with Automated Diff; Complete Time: 17:16 [facility] 07/25 16:56 Order name: Basic Metabolic Panel; Complete Time: 17:16 [facility] 07/25 16:56 Order name: Liver (Hepatic) Function; Complete Time: 17:16 [facility] 07/25 16:56 Order name: Troponin (Emerg Dept Use Only); Complete Time: 17:16 [facility] 07/25 15:54 Order name: XRAY Chest (1 view) [facility] 07/25 15:54 Order name: EKG; Complete Time: 15:55 [facility] 07/25 15:54 Order name: Cardiac monitoring; Complete Time: 15:56 [facility] 07/25 16:56 Order name: NT PRO-BNP; Complete Time: 17:16 [facility] 07/25 16:56 Order name: Magnesium; Complete Time: 17:16 [facility] 07/25 16:56 Order name: Protime (+INR); Complete Time: 17:16 [facility] 07/25 17:13 Order name: Urine Drug Screen; Complete Time: 17:16 [facility] 07/25 17:55 Order name: Urine Dipstick--Ancillary (enter results) 07/25 18:03 Order name: Urine Dipstick-Ancillary; Complete Time: 19:15 [facility] 07/25 18:52 Order name: CT; Complete Time: 19:15 [facility] 07/25 18:52 Order name: RAD; Complete Time: 19:15 [facility] 07/25 15:54 Order name: EKG - Nurse/Tech; Complete Time: 15:56 [facility] 07/25 15:54 Order name: IV Saline Lock; Complete Time: 16:38 [facility] 07/25 15:54 Order name: Labs collected and sent; Complete Time: 16:39 [facility] 07/25 15:54 Order name: O2 Per Protocol; Complete Time: 15:56 [facility] 07/25 15:54 Order name: O2 Sat Monitoring; Complete Time: 15:56 [facility] 07/25 15:54 Order name: Urine Dipstick-Ancillary (obtain specimen); Complete Time: 16:55 [facility] Administered Medications: 14:09 Drug: NS 0.9% 1000 ml Route: IV; Rate: 125 ml/hr; Site: right wrist; rb1 19:30 Follow up: IV Status: Infusion continued upon admission aa1 16:00 Drug: Aspirin Chewable Tablet 324 mg Route: PO; rb1 16:30 Follow up: Response: No adverse reaction rb1 17:45 Drug: Lovenox 100 mg Route: Sub-Q; Site: right lower abdomen; rb1 18:00 Follow up: Response: No adverse reaction rb1 17:45 Drug: Pepcid 20 mg Route: IVP; Site: right antecubital; rb1 18:00 Follow up: Response: No adverse reaction rb1 18:09 Drug: Tylenol 650 mg Route: PO; rb1 19:00 Follow up: Response: No adverse reaction; Pain is decreased aa1 Disposition: 07/25/19 17:21 Hospitalization ordered by Natalya Lynne for Observation. Preliminary diagnosis are Chest pain, unspecified, Tobacco abuse counseling, Tobacco use. - Bed requested for Telemetry/MedSurg (observation). - Status is Observation. aa1 - Condition is Fair. - Problem is new. - Symptoms have improved. UTI on Admission? No Signatures: Dispatcher [employer] EDMS Orly Nicolas RN RN aa1 Sampson King MD MD cha Smirch, Shelby RN RN ss Dee Cason RN RN rb1 Oneyda Soto RN RN tw2 Shima Garcia Corrections: (The following items were deleted from the chart) 18:30 17:21 Hospitalization Ordered by Natalya Lynne MD for Observation. Preliminary diagnosis eb is Chest pain, unspecified; Tobacco abuse counseling; Tobacco use. Bed requested for Telemetry/MedSurg (observation). Status is Observation. Condition is Fair. Problem is new. Symptoms have improved. UTI on Admission? No. constanza 19:36 18:30 07/25/2019 17:21 Hospitalization Ordered by Natalya Lynne MD for Observation. aa1 Preliminary diagnosis is Chest pain, unspecified; Tobacco abuse counseling; Tobacco use. Bed requested for Telemetry/MedSurg (observation). Status is Observation. Condition is Fair. Problem is new. Symptoms have improved. UTI on Admission? No. eb
[2019-07-25] MEDS ORDERED: ENOXAPARIN 100 MG/ML SYR SQ ONE (17:42)
[2019-07-25] MEDS ORDERED: FAMOTIDINE 20 MG/2 ML VIAL IV ONE (17:42)
[2019-07-25 18:03] LABS: Urine Blood NEGATIVE (NEG); Urine Glucose NEGATIVE (NEG); Urine Protein NEGATIVE (NEG)
[2019-07-25] MEDS ORDERED: ACETAMINOPHEN 325 MG TABLET ONE (18:08)
--- NOTE | 2019-07-25 18:50 | RAD REPORT ---
EXAM DESCRIPTION: CT - Head Brain Wo Cont - 07/25/2019 6:31 pm CLINICAL HISTORY: Headache COMPARISON: December 2018 TECHNIQUE: Computed axial tomography of the head was obtained. IV contrast was not requested. All CT scans are performed using dose optimization technique as appropriate and may include automated exposure control or mA/KV adjustment according to patient size. FINDINGS: An intracranial bleed is not seen . The ventricles are normal in caliber. No extra-axial fluid collection is noted. 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 IMPRESSION: No acute intracranial abnormality is seen. If patient's symptoms persist MRI of the bra in would be recommended.
--- NOTE | 2019-07-25 18:50 | RAD REPORT ---
EXAM DESCRIPTION: Vick Single View07/25/2019 4:49 pm CLINICAL HISTORY: Chest pain COMPARISON: December 2018 FINDINGS: The lungs appear clear of acute infiltrate. The heart is normal size IMPRESSION: No acute abnormalities displayed
[2019-07-25] MEDS ORDERED: ACETAMINOPHEN 500 MG TAB PO PRN (19:51)
[2019-07-25] MEDS: NA CHLORIDE 0.9% 1,000 ML IV SCH ×2 (19:51→23:35)
[2019-07-25] MEDS ORDERED: NITROGLYCERIN 0.4 MG/TAB SL PRN (19:51)
[2019-07-25] MEDS: MORPHINE 4 MG/ML SYR IV PRN (20:06)
--- NOTE | 2019-07-25 20:19 | HP ---
Date of Admission: 07/25/2019 Chief Complaint: Chest pain, altered mental status. History Of Present Illness: Patient is a 33-year-old male with no significant past medical history o ther than obesity, comes in for altered mental status and chest pain. Patient was in his usual state of health until day of admission. While eating Thanksgiving lunch, patient had sudden onset of conf usion, was not responding, talking very slowly, seemed to be nonresponsive according to the . Th is lasted for a few seconds. Patient also reported substernal chest pain, nonradiating, associated w ith some headache. No nausea, vomiting, diaphoresis, or palpitations. Patient otherwise denies any fevers, chills, cough, or ill contacts. Patient had similar episode of chest pain last year around t he same time and patient was admitted at that time, had a stress test done and echocardiogram, which were negative. Patient does have strong family history of his mother passing away at the age of 39 w ith heart attack. Therefore, was concerned of possible UT or TIA-type symptoms and sought attention. When seen in the ER, he was awake, alert, oriented x3, complaining of some headache. Chest tightne ss had resolved. Patient's workup including cardiac enzyme and EKG did not show any acute changes. Past Medical History: None. Past Surgical History: Right ACL repair. Allergies: NO KNOWN DRUG ALLERGIES. Medications: None. Social History: Patient smokes 1 pack per day, smoking since the age of 14. Does drink alcohol and is able to drink heavily at times, sounds like binge drinking, did not drink currently. Patient yessenia es any illicit drug use. 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 Family History: Mother of heart attack at the age of 39. Father did not have any significant m edical history. Review of Systems: 10-point system reviewed, negative except as per HPI. Physical Examination: Vital Signs: Blood pressure 152/97, pulse 97, respirations 18, temperature 99.9, O2 100% on room air . Blood pressure did decrease to 118/67. General: Awake, alert, oriented x3, obese male, in some mild distress, ill appearing. HEENT: Normocephalic, atraumatic. PERRLA. EOMI. Moist mucous membranes. Oropharynx is clear. Co njunctivae are anicteric. Neck: Supple. No JVD. Trachea midline. CV: S1, S2. Regular rate and rhythm. Peripheral pulses present. No carotid bruits heard. No murm urs. Respiratory: Clear to auscultation bilaterally. No wheezing or stridor. No use of accessory muscle s. Gastrointestinal: Abdomen is soft, nontender, nondistended. Positive bowel sounds. No guarding or rigidity. Extremities: No clubbing, cyanosis, or edema. No calf tenderness. Neuro: Cranial nerves 2 through 12 intact grossly. No focal neurological deficits. Strength is sym metric, bilateral upper and lower extremities. Sensation intact to light touch. Speech is normal. No facial asymmetry. Skin: No rashes. Normal skin turgor. Psych: Mood is okay. Affect is full. Insight and judgment are good. Laboratory Data: WBC 9.5, H and H 16.7 and 48.2, platelets 279. INR 1.01. Sodium 137, potassium 3. 7, chloride 107, CO2 25, BUN 10, creatinine 0.92, glucose 86, calcium 8.6, magnesium 2.2. AST 32, AL T 105, alkaline phosphatase 86. Troponin less than 0.02. UDS negative. Alcohol level less than 3. Chest x-ray: No official report. Does not appear to have any acute changes. Assessment: 33-year-old male with: 1.Chest pain. We will start on chest pain guidelines. Patient has already received Lovenox full do se in the ER. Pain seems to be subsiding. Initial cardiac enzymes negative. We will obtain serial cardiac enzymes. Nitroglycerin and morphine p.r.n. for pain. Patient had stress test and echocardio gram last year, which were negative. We will consult Cardiology. Patient has a strong family histor y of heart disease with mom passing away at the age of 39 with heart attack. Patient also has obesit y. Initially, blood pressure was elevated at 159; however, he does not have any official diagnosis o f high blood pressure. 2.Acute metabolic encephalopathy. Unclear etiology. Patient had sudden onset of confusion, slowed speech. After IV fluids, per , patient is starting to come back to baseline. We will obtain hea d CT scan to rule out acute cerebrovascular accident. We will need further workup. We will obtain c arotid artery ultrasound, echocardiogram, and MRI of the brain. 3.Obesity, counseled. 4.Nicotine dependence with cigarette smoking, counseled. Plan: Admit patient to Med-Surg, place as observation. /BART Voice ID: [id number]
[2019-07-25] MEDS ORDERED: ATORVASTATIN 40 MG TAB PO SCH (21:00)
[2019-07-25] MEDS: HYDROMORPHONE HCL 2 MG/ML inj IV PRN (22:01)
[2019-07-25 22:31] VITALS: BMI 41.6
--- NOTE | 2019-07-25 22:53 | EKG ---
Test Date: 2019-07-25 Test Time: 15:49:12 Web Operations Manager: JESENIA MEASUREMENT RESULTS: Intervals: Rate: 98 AR: 152 QRSD: 92 QT: 338 QTc: 431 [place]: P: 42 AR: 152 QRS: 21 T: 62 INTERPRETIVE STATEMENTS: Normal sinus rhythm Normal ECG Compared to ECG 01/11/2019 18:37:16 No significant changes Electronically Signed On 07-25-19 22:52:15 RECREATION LEADER by Scooter Moss
[2019-07-25 23:34] LABS: Urine Appearance CLEAR; Urine Bilirubin NEGATIVE (NEG); Urine Blood NEGATIVE (NEG); Urine Color YELLOW; Urine Glucose NEGATIVE (NEG); Urine Microscopic Reflex NO UMIC; Urine Protein NEGATIVE (NEG); Urine Specific Gravity <=1.005 (1.005-1.030); Urine Urobilinogen 0.2 mg/dL (0.2-1.0); Urine pH 6.5 (5.0-7.0)
[2019-07-25] MEDS: ONDANSETRON 4 MG/2 ML VIAL IV PRN (23:34)
[2019-07-26] MEDS: NA CHLORIDE 0.9% 1,000 ML IV SCH ×2 (02:59→11:51)
[2019-07-26] MEDS: HYDROMORPHONE HCL 2 MG/ML inj IV PRN ×2 (03:02→09:02)
[2019-07-26 04:18] LABS: Absolute Lymphocytes (CBC) 4.3 K/uL (0.7-4.9); Basophils % 0.6 % (0-1.3); Hematocrit 43.3 % (39.6-49.0); Lymphocytes % 46.5 % (15.3-44.8); MPV 7.9 fL (7.6-11.3); RBC Red Blood Cell Count 4.92 M/uL (4.33-5.43)
[2019-07-26 04:44] LABS: BUN Blood Urea Nitrogen 9 mg/dL (7-18); Bicarbonate 27 mmol/L (21-32); Glucose Level 96 mg/dL (74-106); HDL Cholesterol 29 mg/dL (40-60); LDL Cholesterol, Calculated ND (<130); Potassium 3.7 mmol/L (3.5-5.1); Sodium Level 140 mmol/L (136-145)
[2019-07-26 04:59] LABS: LDL, Direct 99 mg/dL (100-129)
[2019-07-26] MEDS: MORPHINE 4 MG/ML SYR IV PRN (05:57)
[2019-07-26 08:57] VITALS: O2SAT 98
[2019-07-26] MEDS ORDERED: ASPIRIN EC 81 MG TAB PO SCH (09:00)
--- NOTE | 2019-07-26 10:08 | CON ---
History Of Present Illness: Mr. Villela is 33. Yesterday, he was having a large Thanksgiving dinn er, finished a plate, felt fairly full, and then he had pain in his left pectoral muscle, it radiated down his left arm and he entered a state of altered mental status. His said he would not respo nd very well to her. He seemed to be sweaty when the EMS was called an hour or so later. We do not have a copy of what the vital signs were but he received some intravenous fluid and then seemed to wa ke up. There was no arrhythmia recorded since he has been here in the hospital. Laboratory Data: Complete blood count, chemistry panels are all normal, although today's calcium lev el is slightly low. He has normal cardiac enzymes. LDL cholesterol is 99 and his triglycerides are 434. Physical Examination: Constitutional: He weighs 282 pounds, 5 feet 9 inches tall. HEENT: Normal. Carotids no bruit. Lungs: Clear. Cardiac: Normal. Abdomen: Soft. Extremities: Normal. He is very obese. Medications: His outpatient medications are tizanidine and hydrocodone with acetaminophen. Social History: He is a tobacco user. He managed to quit for a year but resumed. He does not think he could quit without Chantix and will not be able to afford his Chantix. His EKG is completely normal. Impression: This is not an acute coronary syndrome. I suspect he might have had a vagal reaction or he may have rather pronounced anxiety, it causes a spell such as this. An outpatient echocardiogram with saline contrast and a month long event monitor might be useful to help sort it out. A neurolog ical evaluation should be considered. 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 It has been noted previously. Impression is this is not an acute coronary syndrome, an outpatient echo could be done. NESTOR/BART Voice ID: [id number] Report ID: [id number]
[2019-07-26] MEDS: ONDANSETRON 4 MG/2 ML VIAL IV PRN (10:30)
[2019-07-26] MEDS ORDERED: DICLOFENAC SOD D.R. 75 MG TAB PO SCH (11:00)
--- NOTE | 2019-07-26 12:07 | RAD REPORT ---
EXAM DESCRIPTION: MRI - Sup. Sag. Sinus - 07/26/2019 11:55 am CLINICAL HISTORY: cva COMPARISON: None. TECHNIQUE: Magnetic resonance venogram of the brain performed. FINDINGS: The superior sagittal sinus, sigmoid sinus, transverse sinus,, straight sinus visualized i nternal jugular veins and torcula demonstrate normal signal. Thrombus is not visualized. IMPRESSION: Thrombus is not visualized within the venous system of the brain.
--- NOTE | 2019-07-26 12:10 | RAD REPORT ---
EXAM DESCRIPTION: MRI - MRA Head Wo Cont - 07/26/2019 11:55 am CLINICAL HISTORY: cva COMPARISON: None. TECHNIQUE: Magnetic resonance angiogram was performed. 3D MIPS reconstruction performed FINDINGS: The anterior cerebral, middle cerebral, posterior cerebral, distal internal carotid and ba silar arteries do not demonstrate a significant stenosis. An aneurysm is not displayed. IMPRESSION: Unremarkable MRA brain.
--- NOTE | 2019-07-26 12:12 | RAD REPORT ---
EXAM DESCRIPTION: MRI - MRA Neck W/Wo Cont - 07/26/2019 11:55 am CLINICAL HISTORY: cva COMPARISON: None. TECHNIQUE: Magnetic resonance angiogram of the neck was performed. 19 cc MultiHance was administered intravenously. 3D MIPS reconstruction performed FINDINGS: A bovine aorta The common carotid, internal carotid and external carotid arteries do not demonstrate a significant s tenosis. An aneurysm is not seen. The vertebral arteries are codominant without visualization of an abnormality. IMPRESSION: Unremarkable MRA neck NASCET criteria used. Mild 0-49% stenosis Moderate 50-69% stenosis Severe 70-99% stenosis
--- NOTE | 2019-07-26 12:15 | RAD REPORT ---
EXAM DESCRIPTION: MRI - Brain W/Wo Cont - 07/26/2019 11:55 am CLINICAL HISTORY: cva COMPARISON: July 25, [address] TECHNIQUE: Axial, sagittal, and coronal magnetic images of the brain were obtained. 20 cc MultiHance administered intravenously FINDINGS: 16 millimeter lipoma is present within the quadrigeminal cistern. The ventricles are normal in caliber. Diffusion-weighted/ ADC mapping sequences do not demonstrate evidence of an acute infarction. No abnormal enhancement within the brain is seen. An extra-axial fluid collection is not noted. Fluid within the sinuses/mastoids is not seen IMPRESSION: No acute abnormality displayed
[2019-07-26 12:44] VITALS: BP 131/72; TEMP 97
[2019-07-26] MEDS ORDERED: PROPRANOLOL HCL 10 MG TAB PO SCH (21:00)
--- NOTE | 2019-07-26 22:18 | DS ---
Date of Discharge: 07/26/2019 Consultants: Dr. Moss with Cardiology. Procedures: None. Consultants: Dr. Cornell with Neurology. Admitting Diagnoses: 1.Chest pain. 2.Acute metabolic encephalopathy. 3.Morbid obesity. 4.Nicotine dependence with cigarette smoking, counseled. Discharge Diagnoses: 1.Atypical chest pain, acute coronary syndrome ruled out. 2.Acute metabolic encephalopathy, possible transient ischemic attack, cerebrovascular accident, rule d out. 3.Morbid obesity, counseled. 4.Nicotine dependence with cigarette smoking, continuous, uncomplicated counseled. 5.Mixed dyslipidemia. Hospital Course: Patient is a 33-year-old male with no significant past medical history, who is morb idly obese, comes in with altered mental status and chest pain. Patient was admitted to the hospital for further evaluation. His cardiac enzymes were negative. ACS was ruled out. Patient has had a p revious stress and echocardiogram a year ago, which was negative. He was seen by a broadcast correspondent, Dr. Moss, who recommended outpatient workup with Holter monitor and echocardiogram with bubble study. Due to the patient's altered mental status and TIA type symptoms, the patient was worked up for strok e. His MRA and MRI of the brain were negative. Dr. Cornell with Neurology was also consulted. His initial head CT scan was negative, did show 16 mm lipoma present within the quadrigeminal cistern, w hich was compared to December 2018, and no changes were seen. Patient's symptoms resolved. He did have a cute drop in his blood pressure from the 150s to 1 teens, which may be the causative factor of his ch jeffery in mental status. Patient improved with IV fluids according to the . MRA of the neck was u nremarkable. MRA of the brain was also unremarkable. Patient also developed severe headaches, which he described as the worst headache of his life, subarachnoid hemorrhage was ruled out from the CT sc an on admission. He was given propranolol per Neurology recommendation as well as diclofenac, which improved his symptoms. Sagittal sinus MRI was done to rule out thrombus in the venous system, which was negative. The patient's symptoms improved significantly. He was able to ambulate. He was nano ating his diet, did not have any further symptoms or chest pain. He was then cleared for discharge a nd was sent home in a stable condition. Medications: As per medication reconciliation list. Followup: Follow up with primary care physician in 2-3 days. Follow up with broadcast correspondent, Dr. Deepa catalan in 2 weeks. Follow up with neurologist, Dr. Cornell in 2 weeks. Return to ER for worsening condi tion. Diet: Calorie-restricted diet. Patient to watch his triglycerides. Activity: As tolerated. Physical Examination: General: Awake, alert, and oriented x3. No acute distress. Morbidly obese male. CV: S1, S2. Respiratory: Moving air well bilaterally. Abdomen: Abdomen is soft, nontender, nondistended. Positive bowel sounds. Extremities: No clubbing, cyanosis, or edema. Neurologic: Nonfocal. SA/MODL Voice ID: [id number] Report ID: [id number]
== END 2019-07-26 13:50 | disposition home or self-care (01) ==
LOC: ER 15:34 → ERHOLD 17:25 → 4TH 19:14
PROVIDERS: ADMIT Family Medicine; ATTEND Family Medicine
DX: R07.89 Other chest pain (principal); G93.41 Metabolic encephalopathy; E66.01 Morbid (severe) obesity due to excess calories; Z68.41 Body mass index [BMI] 40.0-44.9, adult; F17.210 Nicotine dependence, cigarettes, uncomplicated; E78.2 Mixed hyperlipidemia
CPT/HCPCS: 36415; 70450; 70544; 70549; 70553; 71045; 80048; 80061; 80076; 80307; 80320; 81003; 83735; 83880; 84484; 85025; 85610; 93005; 94760; 96361; 96372; 96374; 99285; A9577; G0378; J1170; J1650; J2405; J7030

== ENCOUNTER 2020-06-17 19:48 | Emergency (ER) | payer OTHER, SELFPAY ==
--- OUTSIDE RECORDS SUMMARY | 2020-06-17 19:51 | XMS REPORT | Continuity of Care Document ---
:1985 Author Organization [facility] t Address [address] [place] [address] Care Team Providers Name Role Phone Unavailable Unavailable Unavailable Payers Payer Name Policy Type Policy Number Effective Date Expiration Date S ource Problems This patient has no known problems. Allergies, Adverse Reactions, Alerts Allergy Allergy Status Severity Reaction(s) Onset Inactive Treating Comm ents Source Name Type Date Date Clinician No Known DA Active U [facility] No Known DA Active U 2005-0 [facility] Contrast 4[facility]21 [facility] No Known DA Active U 2005-0 [facility] 4[facility]21 [facility] No Known DA Active U 2005-0 [facility] Food 4[facility]21 [facility] No Known DA Active U 2005-0 [facility] Other 4-21 [facility]: d [facility] Medications This patient has no known medications. Procedures This patient has no known procedures. Results Test Description Test Time Test Comments Results Result [facility] e Comments - XR L-SPINE 09/302019-11-06 FAX: VIEWS 12:55:00 Dorothy Espino [phone] [place]: St: REG Name: GEORGINA BERNABE [facility] : 1985 Age/S: 34/M [address] [facility] Unit #: [id number] Loc: E.EXP [place], [place] Phys: Dorothy Espino MD ALLERGY IMMUNOLOGY [id number] Acct: [id number] Dis Date: Status: REG ER PHONE #: [phone] Exam Date: 11/06/2019 1240 FAX #: [phone] Reason: pain EXAMS: CPT CODE: [id number] XR L-SPINE 2/3 VIEWS [id number] EXAM: - XR L-SPINE 2/3 VIEWS LOCATION: B2 HISTORY: pain COMPARISON: None available time of interpretation. TECHNIQUE: 3 views of the lumbar spine are provided. FINDINGS: Lumbar spine alignment is maintained. Vertebral body heights are preserved. There is no significant disc space narrowing. Visible soft tissues are unremarkable. IMPRESSION: No acute fracture with normal alignment. at 1034 Reported and signed by: Shima Rae M.D. CC: Dorothy Espino NP Technologist: ALYSSA RAUSCH Trnsamanthard Date/Time/By: 11/06/2019 (1462) : By: [email or web address] PAGE 1 Signed Report FAX: Dorothy Espino [phone] [place]: St: REG Name: GEORGINA BERNABE [facility] : 1985 Age/S: 34/M [address] [facility]: [id number] Loc: E.EXP [place], [place] Phys: Dorothy Espino MD ALLERGY IMMUNOLOGY [address] Acct: [id number] Dis Date: Status: REG ER PHONE #: [phone] Exam Date: 11/06/2019 1240 FAX #: [phone] Reason: pain EXAMS: CPT CODE: [id number] XR L-SPINE 2/3 VIEWS [id number] <Continued> Orig Print D/T: S: 11/06/2019 (4694) PAGE 2 Signed Report
--- NOTE | 2020-06-17 20:28 | RAD REPORT ---
EXAM DESCRIPTION: Vick Single View06/17/2020 8:19 pm CLINICAL HISTORY: cough COMPARISON: 2018 FINDINGS: The lungs appear clear of acute infiltrate. The heart is normal size IMPRESSION: No acute abnormalities displayed
[2020-06-17] MEDS ORDERED: dexAMETHasone 4 MG/ML VIAL ONE (20:43)
--- NOTE | 2020-06-17 20:58 | EDPHYS ---
Physician Documentation [facility] Name: Jose R Villela Age: 34 yrs Sex: Male : 1985 Arrival Date: 06/17/2020 Time: 19:52 Bed 18 Private MD: Jv Hurt T ED Physician Alfredo Poole HPI: 06/17 20:03 This 34 yrs old Male presents to ER via Unassigned with complaints of Cough, jmm Fever, Chest Tightness. 20:03 The patient or guardian reports cough. Onset: The symptoms/episode began/occurred jmm gradually, 1 day(s) ago. Modifying factors: The symptoms are alleviated by nothing, the symptoms are aggravated by nothing. Associated signs and symptoms: Pertinent positives: fever, sore throat. The patient has not experienced similar symptoms in the past. 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 . Historical: - Allergies: 20:10 No Known Allergies; ll2 - Home Meds: 20:10 tizanidine [Active]; ll2 - PMHx: 20:10 None; ll2 - PSHx: 20:10 ACL replacement RT knee; ll2 - Immunization history:: Adult Immunizations up to date. - Social history:: Smoking status: . ROS: 20:03 Constitutional: Positive for fever. jmm 20:03 ENT: Positive for sore throat. 20:03 Respiratory: Positive for cough. 20:03 All other systems are negative. Exam: 20:03 Constitutional: This is a well developed, well nourished patient who is awake, alert, jmm and in no acute distress. Head/Face: atraumatic. Eyes: EOMI, no conjunctival erythema appreciated ENT: Moist Mucus Membranes Neck: Trachea midline, Supple Chest/axilla: Normal chest wall appearance and motion. Cardiovascular: Regular rate and rhythm. No edema appreciated Respiratory: Normal respirations, no respiratory distress appreciated Abdomen/GI: Non distended, soft Back: Normal ROM Skin: General appearance color normal MS/ Extremity: Moves all extremities, no obvious deformities appreciated, no edema noted to the lower extremities Neuro: Awake and alert, normal gait Psych: Behavior is normal, Mood is normal, Patient is cooperative and pleasant Vital Signs: 20:03 BP 136 / 91; Pulse 89; Resp 18; Temp 98.9; Pulse Ox 95% on R/A; ll2 MDM: 20:02 Patient medically screened. [facility] 20:55 Data reviewed: vital signs, nurses notes. Counseling: I had a detailed discussion with [facility] the patient and/or guardian regarding: the historical points, exam findings, and any diagnostic results supporting the discharge/admit diagnosis, lab results, radiology results, the need for outpatient follow up, to return to the emergency department if symptoms worsen or persist or if there are any questions or concerns that arise at home. ED course: Patient is alert and non toxic in appearance in the ED. No signs of resp distress. Patient is given strict return precautions. Patient understood and agrees with the plan of care. . 06/17 19:58 Order name: Flu; Complete Time: 20:53 [facility] 06/17 19:58 Order name: Strep; Complete Time: 20:53 [facility] 06/17 19:58 Order name: COVID-19 [facility] 06/17 19:58 Order name: Chest Single View XRAY; Complete Time: 20:46 [facility] Administered Medications: 20:35 Drug: Decadron 10 mg Route: IM; Site: right gluteus; ca1 20:49 Follow up: Response: No adverse reaction ll2 20:59 Drug: AZITHromycin 500 mg Route: PO; ll2 20:59 Follow up: Response: No adverse reaction ll2 Disposition: 06/18 03:19 Co-signature as Attending Physician, Alfredo Poole MD. rn Disposition: 06/17/20 20:57 Discharged to Home. Impression: Acute upper respiratory infection, unspecified, Acute pharyngitis. - Condition is Stable. - Discharge Instructions: Pharyngitis, Upper Respiratory Infection, Adult, COVID-19, Dental Work and , Form - Return To Work. - Prescriptions for Zithromax Z- Sanford 250 mg Oral Tablet - take 1 tablet by ORAL route once daily for 3 days; 3 tablet. Albuterol Sulfate 90 mcg/actuation - inhale 1-2 puff by INHALATION route every 4-6 hours; 1 Inhaler. - Medication Reconciliation Form, Thank You Letter, Antibiotic Education, Prescription Opioid Use form. - Follow up: Jv Hurt MD; When: 2 - 3 days; Reason: Recheck today's complaints, Continuance of care, Re-evaluation by your physician. - Notes: Please take 50 mg of zinc daily, 1000 mg of NAC twice a day, 500 mg of Quercetin twice a day, and vitamin C. Signatures: Dispatcher [employer] EDMS Anjel Condon PA PA jmm Nieto, Roman, MD MD rn Acob, Ratna RN RN ca1 Chata Sheehan RN RN ll2 Corrections: (The following items were deleted from the chart) 06/17 21:10 20:57 06/17/2020 20:57 Discharged to Home. Impression: Acute upper respiratory ll2 infection, unspecified; Acute pharyngitis. Condition is Stable. Forms are Medication Reconciliation Form, Thank You Letter, Antibiotic Education, Prescription Opioid Use. Follow up: Jv Hurt; When: 2 - 3 days; Reason: Recheck today's complaints, Continuance of care, Re-evaluation by your physician. joselin
--- NOTE | 2020-06-17 20:58 | ER ---
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 Coronavirus screen: Client denies travel out of the [place] in the last 14 days. chills, cough unrelated to allergies, diarrhea, shortness of breath. Ebola Screen: No symptoms or risks identified at this time. Initial Sepsis Screen: Does the patient meet any 2 criteria? No. Patient's initial sepsis screen is negative. Does the patient have a suspected source of infection? No. Patient's initial sepsis screen is negative. Risk Assessment: Do you want to hurt yourself or someone else? Patient reports no desire to harm self or others. Onset of symptoms was June 15, 2020. 20:03 Method Of Arrival: Ambulatory ll2 20:03 Acuity: LUIS 3 ll2 Historical: - Allergies: 20:10 No Known Allergies; ll2 - Home Meds: 20:10 tizanidine [Active]; ll2 - PMHx: 20:10 None; ll2 - PSHx: 20:10 ACL replacement RT knee; ll2 - Immunization history:: Adult Immunizations up to date. - Social history:: Smoking status: . Screenin:09 Abuse screen: Denies threats or abuse. Nutritional screening: No deficits noted. ll2 Tuberculosis screening: No symptoms or risk factors identified. Fall Risk None identified. Assessment: 20:06 Reassessment: see triage assessment. General: Appears in no apparent distress. Behavior ll2 is calm, cooperative, appropriate for age. Pain: Denies pain. Pain does not radiate. Pain began no pain reported just feeling unwell. Neuro: Level of Consciousness is awake, alert, obeys commands, Oriented to person, place, time, situation. Cardiovascular: Capillary refill < 3 seconds Patient's skin is warm and dry. Respiratory: Airway is patent Respiratory effort is even, unlabored, Respiratory pattern is regular, symmetrical. GI: Reports diarrhea. : No signs and/or symptoms were reported regarding the genitourinary system. EENT: No signs and/or symptoms were reported regarding the EENT system. Derm: Skin is intact, is healthy with good turgor, Skin is dry, Skin is pink, warm \T\ dry. Skin temperature is warm. Musculoskeletal: Circulation, motion, and sensation intact. Range of motion: intact in all extremities. Vital Signs: 20:03 BP 136 / 91; Pulse 89; Resp 18; Temp 98.9; Pulse Ox 95% on R/A; ll2 ED Course: 19:52 Patient arrived in ED. am2 19:52 Jv Hurt MD is Private Physician. am2 19:53 Chata Sheehan, KEM is Primary Nurse. ll2 19:53 Anjel Condon PA is PHCP. [facility] 19:53 Alfredo Poole MD is Attending Physician. [facility] 20:06 Triage completed. ll2 20:09 Patient has correct armband on for positive identification. Bed in low position. Call ll2 light in reach. Side rails up X 1. groundskeeper on. Pulse ox on. NIBP on. 20:10 Arm band placed on right wrist. ll2 20:10 No provider procedures requiring assistance completed. Patient maintains SpO2 ll2 saturation greater than 95% on room air. 20:19 Chest Single View XRAY In Process Unspecified. EDMS 20:57 Jv Hurt MD is Referral Physician. [facility] 21:09 Patient did not have IV access during this emergency room visit. ll2 Administered Medications: 20:35 Drug: Decadron 10 mg Route: IM; Site: right gluteus; ca1 20:49 Follow up: Response: No adverse reaction ll2 20:59 Drug: AZITHromycin 500 mg Route: PO; ll2 20:59 Follow up: Response: No adverse reaction 2 Outcome: 20:57 Discharge ordered by . [facility] 21:09 Discharged to home via wheelchair. ll2 21:09 Condition: stable 21:09 Discharge instructions given to patient, Instructed on discharge instructions, follow up and referral plans. medication usage, Demonstrated understanding of instructions, follow-up care, medications, Prescriptions given X 2. 21:10 Patient left the ED. ll2 Addendum: 06/22/2020 19:19 Addendum: COVID-19 Result: Negative result given to RN to notify pt. Attempted to i w contact pt regarding negative COVID-19 swab results. Left voice mail. 19:23 Addendum: COVID-19 Result: Negative result given to RN to notify pt. Notified pt of i w negative COVID 19 swab results. Pt advised that even with a negative test result they should remain in isolation until symptom free for 3 days without medication. Pt also advised to return to the ED for worsening symptoms. Signatures: Dispatcher [employer] EDMS Anjel Condon PA PA jmm Williams, Irene, RN RN Sue Waite Cheryl RN Chata Amaral RN KEM ll2
[2020-06-17] MEDS ORDERED: AZITHROMYCIN 250 MG TAB ONE (21:10)
[2020-06-17 21:27] VITALS: BP 136/91; TEMP 98.9; O2SAT 95
== END 2020-06-17 21:10 | disposition home or self-care (01) ==
LOC: ER 19:48
DX: J06.9 Acute upper respiratory infection, unspecified (principal); Z20.828 Contact with and (suspected) exposure to other viral communicable diseases; J02.9 Acute pharyngitis, unspecified
CPT/HCPCS: 71045; 87070; 87081; 87804; 96372; 99285; J1100; U0002

== ENCOUNTER 2023-07-27 21:51 | Emergency (ER) | payer SELFPAY ==
--- OUTSIDE RECORDS SUMMARY | 2023-07-27 21:53 | XMS REPORT | Continuity of Care Document ---
:1985 Author Organization [facility] t Address [address] [place] [address] [address] [place] [address] Care Team Providers Name Role Phone JANE NORRIS Attending Clinician Unavailable LAB90 Attending Clinician Unavailable DOROTHY HO Attending Clinician Unavailable UNDEFINED Admitting Clinician Unavailable Payers Payer Name Policy Type Policy Number Effective Date Expiration Date S tremayne [facility] 2 [id number] 2022 BENEFITS SYS/PPO 00:00:00 [employer]IG[employer]-ACS BENEFIT 2 [id number] 2018 SERVICES 00:00:00 Problems Condition Condition Condition Status Onset Resolution Last Treating Co mments Source Name Details Category Date Date Treatment Clinician Date History of History of Disease Active 2021-08 Renae schultz ADHD ADHD 2-28 Seybold 00:00: - 00 Externa l History of History of Disease Active 2021-08 Renae schultz bipolar bipolar 2-28 Seybold disorder disorder 00:00: - 00 Externa l 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 2-28 Seybold obesity obesity 00:00: - due to due to 00 Externa excess excess l calories calories without without serious serious comorbidit comorbidit y with y with body mass body mass index index (BMI) of (BMI) of 40.0 to 40.0 to 44.9 in 44.9 in adult adult History of History of Disease Active 2021-08 K elsey repair of repair of 2-28 Seyb old anterior anterior 00:00: - cruciate cruciate 00 Feather Edger a ligament ligament l of right of right knee knee Chronic Chronic Disease Active 2021-08 Marly bilateral bilateral 2-28 Seyb old low back low back 00:00: - pain pain 00 Externa without without l sciatica sciatica Allergies, Adverse Reactions, Alerts Allergy Allergy Status Severity Reaction(s) Onset Inactive Treating Comm ents Source Name Type Date Date Clinician No Known DA Active U 2020-0 [facility] No Known DA Active U 2020-0 [facility] No Known DA Active U 2006-0 [facility] Contrast 4-21 [facility] No Known DA Active U 2006-0 [facility] Drug 4[facility]21 [facility] No Known DA Active U 2006-0 [facility] Food 4-21 [facility] No Known DA Active U 2006-0 [facility] Other 4-21 [facility] Social History Social Habit Start Date Stop Date Quantity Comments Source History SDOH Marly benavidez Alcohol Frequency - Exter nal History SDOH Marly benavidez Alcohol Std Drinks - Exte rnal History SDOH Marly benavidez Alcohol Binge - External History of tobacco Marly Cota use - External Alcohol intake 2022-08-24 2022-08-24 Current drinker of Yair opheliachrissie Saldivarson 00:00:00 00:00:00 alcohol (finding) - Exter nal Alcohol Comment 2022-08-24 2022-08-24 moderately Marly cline 00:00:00 00:00:00 - External Education 2022-08-24 2022-08-24 16 Marly Cota 00:00:00 00:00:00 - External Cigarettes smoked 2022-08-24 2022-08-24 Marly Cota current (pack per 00:00:00 00:00:00 - Exter nal day) - Reported Tobacco use and 2022-08-24 2022-08-24 Smokeless tobacco Yair Cota exposure 00:00:00 00:00:00 non-user - External Sex Assigned At [birth year] M Marly lcine 00:00:00 00:00:00 - External Smoking Status Start Date Stop Date Source Smokes tobacco daily 2022-08-24 00:00:00 Marlyagustina Cota - External Medications Ordered Filled Start Stop Current Ordering Indication Dosage Frequency Signature Comments Components Source Medication Medication Date Date Medication? Clinician (SIG) Name Name Ibuprofen 2021-08- No 800mg Q.25D Take 800 K elsey 800 MG oral 2-28 12-28 mg by Seybol d Tab 09:53: 00:00 mouth - 55 :00 every 6 Externa hours as l needed for pain Meloxicam 2021-08 Yes [id number] 15mg QD Take 1 K elsey 15 MG oral 2-28 tablet (15 Sey bold Tablet 00:00: mg total) - 00 by mouth Externa daily as l needed for pain Gabapentin 2021-08 Yes [id number] 100mg Q.5D Take 1 Marly 100 MG oral 2-28 capsule Seybo ld Capsule 00:00: (100 mg - 00 total) by Externa mouth 2 l times daily as needed (pain) HYDROcodone 2021- No 1{tbl} Q.25D Take 1 Marly -Acetaminop 5-26 12-28 tablet by Se cline hen 10-325 00:00: 00:00 mouth - MG oral Tab 00 :00 every 6 Exter na hours as l needed for pain Tizanidine No 4mg Q.65216345 Take 1 Marly HCl 4 MG 5-26 12-28 [id number] tablet (4 Seybold oral Tab 00:00: 00:00 3D mg total) - 00 :00 by mouth Externa every 8 l hours as needed for muscle spasms Tizanidine 2018-08- No 4mg Q.44347972 Take 1 Marly HCl 4 MG 2-21 12-28 [id number] tablet (4 Seybold oral Tab 00:00: 00:00 3D mg total) - 00 :00 by mouth Externa every 8 l hours as needed for muscle spasms Acetaminoph 2021- No 1{tbl} Q.68238992 Take 1 Marly en-Codeine 7-10 08-24 [id number] tablet by Seybold #3 300-30 00:00: 00:00 3D mouth - MG oral Tab 00 :00 every 8 Exter na hours as l needed FOR PAIN Acetaminoph 2021- No 1{tbl} Q.86291225 Take 1 Marly en-Codeine 02-18 [id number] tablet by Seybold #3 300-30 00:00: 00:00 3D mouth - MG oral Tab 00 :00 every 8 Exter na hours as l needed FOR PAIN Promethazin 2021- No 25mg Q.07052481 Take 1 Marly e HCl 25 MG 02-07 [id number] (one) Seybold oral Tab 00:00: 00:00 3D tablet by - 00 :00 mouth Externa every 8 l hours as needed for nausea Enoxaparin No 40mg Inject 40 K elsey (LOVENOX) 01-30 (forty) mg Sey bold 40 MG/0.4ML 00:00: 00:00 into the - subcutaneou 00 :00 skin daily Ex terna s Solution *BDP* l Diclofenac 75mg Take 1 Tennille ey Sodium 75 18 08-24 (one) Seybold MG oral 00:00: 00:00 tablet by - Tablet 00 :00 mouth 2 Externa Delayed times l Response daily Take with food. Stop taking this medication if it upsets your stomach. Vital Signs Vital Name Observation Time Observation Value Comments Source Systolic blood 2022-08-24 15:46:00 126 mm[Hg] Marly Grantold - pressure External Diastolic blood 2022-08-24 15:46:00 84 mm[Hg] Kristina Cota - pressure External Heart rate 2022-08-24 15:46:00 111 /min Marly dickensbold - External Body temperature 2022-08-24 15:46:00 35.06 Pat Tennille dickens Seybold - External Respiratory rate 2022-08-24 15:46:00 16 /min Tennille dickens Seybold - External Body height 2022-08-24 15:46:00 172.7 cm Marly guzman - External Body weight 2022-08-24 15:46:00 130.182 kg Marly guzman - External BMI 2022-08-24 15:46:00 43.64 kg/m2 Marly guzman - External Procedures This patient has no known procedures. Encounters Start End Encounter Admission Attending Care Care Encounter Source Date/Time Date/Time Type Type Clinicians Facility Department ID 2019-11-06 Inpatient [facility] [id number] [facility] 12:08:00 79 [facility] 2022-12-27 2022-12-27 Outpatient MARLY NORRIS [id number] Marly 00:00:00 00:00:00 JANE Seybol d 2022-10-19 2022-10-19 Outpatient MARLY NORRIS [id number] Marly 00:00:00 00:00:00 JANE Seybol d 2022-10-19 2022-10-19 Outpatient MARLY NORRIS [id number] Marly 00:00:00 00:00:00 JANE Seybol d 2022-10-14 2022-10-14 Outpatient MARLY NORRIS [id number] Marly 16:30:00 16:30:00 JANE Seybol d 2022-10-04 2022-10-04 Outpatient MARLY NORRIS [id number] Marly 00:00:00 00:00:00 JANE Seybol d 2022-09-28 2022-09-28 Outpatient MARLY NORRIS [id number] Marly 16:00:00 16:00:00 JANE Seybol d 2022-08-25 2022-08-25 Outpatient MARLY NORRIS [id number] Marly 00:00:00 00:00:00 JANE Seybol d 2022-08-24 2022-08-24 Outpatient LAB90 MARLY DIAZ [id number] Marly 10:45:00 10:45:00 Seybol d 2022-08-24 2022-08-24 Outpatient MARLY NORRIS [id number] Marly 10:00:00 10:00:00 JANE cardona 2022-04-08 2022-04-08 Outpatient VIC MARLY MARLY [id number] Marly 15:30:00 15:30:00 DOROTHY cardona Results Test Description Test Time Test Comments Results Result [facility] e Comments - XR L-SPINE 2/3 2019-11-06 FAX: Dorothy Espino 12:55:00 Brianna [phone] [place]: St: REG Name: GEORGINA BERNABE [facility] : 1985 Age/S: 34/M [address] [facility] [employer] [facility] [place] Unit #: [id number] Loc: E.EXP [place], [place] Phys: Dorothy Espino ENVIRONMENTAL ENGINEERING MANAGER [id number] Acct: [id number] Dis Date: Status: REG ER PHONE #: [phone] Exam Date: 11/06/2019 1240 FAX #: [phone] Reason: pain EXAMS: CPT CODE: [id number] XR L-SPINE 2/3 VIEWS 80179 EXAM: - XR L-SPINE 2/3 VIEWS LOCATION: B2 HISTORY: pain COMPARISON: None available time of interpretation. TECHNIQUE: 3 views of the lumbar spine are provided. FINDINGS: Lumbar spine alignment is maintained. Vertebral body heights are preserved. There is no significant disc space narrowing. Visible soft tissues are unremarkable. IMPRESSION: No acute fracture with normal alignment. at 7121 Reported and signed by: Shima Rae M.D. CC: Dorothy Espino NP Technologist: ALYSSA RAUSCH Trnscrd Date/Time/By: 11/06/2019 (9531) : By: [email or web address] PAGE 1 Signed Report FAX: Dorothy Espino [phone] [place]: St: REG Name: GEORGINA BERNABE [facility] : 1985 Age/S: 34/M [address] [facility] Unit #: [id number] Loc: E.EXP [place], [place] Phys: Dorothy Espino ENVIRONMENTAL ENGINEERING MANAGER [address] Acct: [id number] Dis Date: Status: REG ER PHONE #: [phone] Exam Date: 11/06/2019 1240 FAX #: [phone] Reason: pain EXAMS: CPT CODE: [id number] XR L-SPINE 2/3 VIEWS 19618 (Continued) Orig Print D/T: S: 11/06/2019 (1259) PAGE 2 Signed Report Notes Date/Time Note Provider Source 2019-11-06 12:50:00 [id number]:50:00 [facility] ([facility])EMERGENCY PROVIDER REPORTREPORT#:[id number] REPORT STATUS: SignedDATE:11/06/19 TIME: 1250 PATIENT: GEORGINA BERNABE UNIT #: [id number]#: [id number] ROOM/BED:AGE: 34 SEX: M PCP PHYS: No Primary or Family PhysicianSERVICE AUTHOR: Dorothy Espino ENVIRONMENTAL ENGINEERING MANAGER * ALL edits or amendments must be made on the electronic/computer document * HPI-Back Pain Under 40 GeneralConfirmed Patient YesDate/Time Seen by Provider 11/06/19 1211PCPLake Lul PresentationChief Complaint Pain, back, Pain, lumbarHx Obtained From Patient)( Sudden in Onset ? YesOnset Occurred YesterdaySymptom Duration Sinc e onsetLocation Spinal lumbar areaQuality PainfulRadiationLeg R, above knee, Leg L, above knee. Severity: Onset ModerateSeverity: Current ModerateAssociated withDenies: Dysuria, Fever, Inability to walk, Incontinence bladder, Incontinence bowel. Free Text HPI NotesFree Text HPI Notes34 yo male presents with c/o lumar back pain, reports felt sore last evening, woke with pain this AM . Radiates to legs r>l. Denies injury or trauma, denies incontinence. Took 3 norco at 0800. Review of Systems ROS StatementsAll systems rev neg except as marked. Focused Review of SystemsConstitutionalDenies: Chills, Fever. RespiratoryDenies: Cough, non-productive, Pleuritic pain, Shortness of breath, Wheezing. GIDenies: Abdominal pain, Diarrhea, Nausea, Vomiting. MaleDenies: Dysuria, Flank pain, Incontinence. MusculoskeletalReports: Back pain, Lumbar pain. Past Medical History - AdultStated Complaint TEMO LOWER BACK PAINAllergiesCoded Allergies:No Known Allergies (11/06/19) Review of Nursing Notes Rev avail, and agreeAdditional Surgical HistoryRight ACL repairSmoking status for patients 13 years old or older: Never Smoker Physical Exam Vital SignsVital SignsFirst Documented: Result Date Time Pulse Ox 96 11/05 1209 B/P 140/85 / 1209 B/P Mean 103 / 1209 O2 Delivery Room r 11/05 1209 Temp 36.9 11/05 1209 Pulse 82 11/05 1209 Resp 16 11/05 1209 Last Documented: Result Date Time Pulse Ox 96 11/05 1209 B/P 140/85 03/ 1 1209 B/P Mean 103 11/05 1209 O2 Delivery Room r 11/05 1209 Temp 36.9 11/05 1209 Pulse 82 11/05 1209 Resp 16 11/05 1209 Review of Vital Signs Reviewed Focused PEGeneral/Const General/Cons t Awake, Alert, No acute distress, Well appearing, Well developed, Well hydrated, Well nourished, Cooperative, Not toxic appearingMS Neck Neck Supple, No meningismus, Full range of motion, No adenopathy, No swelling, Non-tender, No midline vertebral tendResp/Chest Respiratory/Chest Breat h sounds NL, Breath sounds = bilat, No respiratory distressCardiovascular Cardiovascular Heart rate NL, Regular rhythm, Heart sounds NL, Cap refill notdelayed, Peripheral circulation NLAbdomen/GI Abdomen/GI Soft, Non-tender, BS normoactiveMS Back Back Inspection NL Flank/Spine/Paraspina l Lumbar spine tender. Muscle Spasm/ROM Lumbar are a spasm. Straight Leg Raise Strt leg raise + R 10 deg, Strt leg raise + L 20 deg. MS Lower Extrem Lower Ext/Pelvis/MS Inspection NL, Full range of motion, No swelling, Non-tender, No erythema, No deformity, Neurologic intact, Vascular intactNeurologic Neurologic Oriented X3, Speech NL, No motor deficits, No sensory deficits, CNII - XII intact, Reflexes equal bila t Interpretation Diagnostics Lab Results InterpretationResultsRecent Impressions:RADIOLOG Y - XR L-SPINE 2/3 VIEWS 11/05 1235 Report Impression - Status: SIGNED Entered: 11/06/2019 1259 IMPRESSION:No acute fracture with normal alignment. Impression By: Zuly Rae M.D. Imaging StatementRadiographic studies reviewed and considered in the medical decision-making. Point of Care TestingPulse Oximetry Pulse Ox % 96 On: Room air Interpretation Interpreted by me, Pulse oximetry normal Time 1211 RadiographyX-Ray L-Spine Text/Dict Note IMPRESSION:No acute fracture with normal alignment. Interpretation/Wet Read by Interpret - Radiologist Re-Evaluation MDM Free Text MDM NotesFree Text MDM Notesdiscussed resul t of x ray, diagnosis, home care and PCP follow up,verbalized understanding Re-Evaluation/ProgressRe-Evaluation/Progress Wilian e of Re-Eval 1320 Re-Eval Status Improved Plan Pos t Re-Eval Plan discharge ED CourseMedication(s) OrderedMedication(s) Ordered:Autonomic Drugs Sig/Homar Start time Last Medication Dose Route Stop Time Status Admin Cyclobenzaprine HCl 10 MG X1ED STA 11/05 1232 DC 11/05 PO 11/05 1233 1239 Central Nervous System Agents Sig/Homar Start wilian e Last Medication Dose Route Stop Time Status Admi n Ketorolac 10 MG X1ED STA 11/05 1232 DC 11/05 Tromethamine PO 11/05 1233 1239 Patient Discharg e Departure Vital Signs/ConditionVital SignsFirst Documented: Result Date Time Pulse Ox 96 11/05 1209 B/P 140/85 11/05 1209 B/P Mean 103 11/05 1209 O2 Delivery Room air 11/05 1209 Temp 36.9 11/05 1209 Pulse 82 11/05 1209 Resp 16 11/05 120 9 Last Documented: Result Date Time Pulse Ox 96 11/05 1209 B/P 140/85 11/05 1209 B/P Mean 103 11/05 1209 O2 Delivery Room air 11/05 1209 Temp 36.9 11/05 1209 Pulse 82 11/05 1209 Resp 16 10/26 1 1209 All vital signs available at the time of this entry have been reviewed. Condition Improved, Stable Clinical ImpressionClinical ImpressionPrimary Impression: Back pain with radiculopathy Disposition DecisionDischarge )( Discharged to Home Yes )( Time 1321 )( Date 11/06/19 Discharge/Care PlanCounseled Regarding Diagnosis, Imaging studies, Prescriptions, Need for follow-upPrescriptionsnaprosyn, flexeril, tylenol #3Prescriptions Reviewed Risks, Benefits , Alternative treatment Discharge NoteI have spoke n with the patient and/or caregivers. I have explained the patient'scondition, diagnoses and treatment plan based on the information availabl e to meat this time. I have answered the patient's and/or caregiver's questions and addressed any concerns. The patient and/or caregivers have as good an understanding of the patient's diagnosis , condition and treatment plan as can beexpected a t this point. The vital signs have been stable. Th e patient's condition is stable and appropriate fo r discharge from the emergency department. The patient will pursue further outpatient evaluatio n with the primary care physician or other designated or consulting physician as outlined i n the discharge instructions. The patient and/or caregivers are agreeable to this planof care and follow-up instructions have been explained in detail. The patient and/or caregivers have received these instructions in written format an d have expressed an understanding of the discharge instructions. The patient and/or caregivers are aware that any significant change in condition o r worsening of symptoms should prompt an immediate return to this or the closest emergency department or a call to 911. at 1322RPT #:[id number] OF REPORTEDEmergenc y department [id number]:50:00E.[id number] a ilable for patient [id number]:22:35 2019-11-06 12:50:00 [id number]:50:00 [facility] ([facility])EMERGENCY PROVIDER REPORTREPORT#:[id number] REPORT STATUS: SignedDATE:11/06/19 TIME: 1250 PATIENT: GEORGINA BERNABE UNIT #: [id number]#: [id number] ROOM/BED:AGE: 34 SEX: M PCP PHYS: No Primary or Family PhysicianSERVICE AUTHOR: Dorothy Espino ENVIRONMENTAL ENGINEERING MANAGER * ALL edits or amendments must be made on the electronic/computer document * Dorothy Espino 11/06/19 1250:HPI-Back Pain Under 40 GeneralConfirmed Patient YesPCPLake Harold PresentationChief Complaint Pain, back, Pain, lumbarHx Obtained From Patient)( Sudden in Onset ? YesOnset Occurred YesterdaySymptom Duration Sinc e onsetLocation Spinal lumbar areaQuality PainfulRadiationLeg R, above knee, Leg L, above knee. Severity: Onset ModerateSeverity: Current ModerateAssociated withDenies: Dysuria, Fever, Inability to walk, Incontinence bladder, Incontinence bowel. Free Text HPI NotesFree Text HPI Notes34 yo male presents with c/o lumar back pain, reports felt sore last evening, woke with pain this AM . Radiates to legs r>l. Denies injury or trauma, denies incontinence. Took 3 norco at 0800. Review of Systems ROS StatementsAll systems rev neg except as marked. Focused Review of SystemsConstitutionalDenies: Chills, Fever. RespiratoryDenies: Cough, non-productive, Pleuritic pain, Shortness of breath, Wheezing. GIDenies: Abdominal pain, Diarrhea, Nausea, Vomiting. MaleDenies: Dysuria, Flank pain, Incontinence. MusculoskeletalReports: Back pain, Lumbar pain. Past Medical History - AdultStated Complaint TEMO LOWER BACK PAINAllergiesCoded Allergies:No Known Allergies (11/06/19) Review of Nursing Notes Rev avail, and agreeAdditional Surgical HistoryRight ACL repairSmoking status for patients 13 years old or older: Never Smoker Physical Exam Vital SignsVital SignsFirst Documented: Result Date Time Pulse Ox 96 11/05 1209 B/P 140/85 / 1209 B/P Mean 103 / 1209 O2 Delivery Room ai r 11/05 1209 Temp 36.9 11/05 1209 Pulse 82 11/05 1209 Resp 16 11/05 1209 Last Documented: Result Date Time Pulse Ox 96 11/05 1209 B/P 140/85 03/ 1 1209 B/P Mean 103 11/05 1209 O2 Delivery Room ai r 11/05 1209 Temp 36.9 11/05 1209 Pulse 82 11/05 1209 Resp 16 11/05 1209 Review of Vital Signs Reviewed Focused PEGeneral/Const General/Cons t Awake, Alert, No acute distress, Well appearing, Well developed, Well hydrated, Well nourished, Cooperative, Not toxic appearingMS Neck Neck Supple, No meningismus, Full range of motion, No adenopathy, No swelling, Non-tender, No midline vertebral tendResp/Chest Respiratory/Chest Breat h sounds NL, Breath sounds = bilat, No respiratory distressCardiovascular Cardiovascular Heart rate NL, Regular rhythm, Heart sounds NL, Cap refill notdelayed, Peripheral circulation NLAbdomen/GI Abdomen/GI Soft, Non-tender, BS normoactiveMS Back Back Inspection NL Flank/Spine/Paraspina l Lumbar spine tender. Muscle Spasm/ROM Lumbar are a spasm. Straight Leg Raise Strt leg raise + R 10 deg, Strt leg raise + L 20 deg. MS Lower Extrem Lower Ext/Pelvis/MS Inspection NL, Full range of motion, No swelling, Non-tender, No erythema, No deformity, Neurologic intact, Vascular intactNeurologic Neurologic Oriented X3, Speech NL, No motor deficits, No sensory deficits, CNII - XII intact, Reflexes equal bila t Interpretation Diagnostics Lab Results InterpretationResultsRecent Impressions:RADIOLOG Y - XR L-SPINE 2/3 VIEWS 11/05 1235 Report Impression - Status: SIGNED Entered: 11/06/2019 1259 IMPRESSION:No acute fracture with normal alignment. Impression By: [email or web address] - Shima Rae M.D. Imaging StatementRadiographic studies reviewed and considered in the medical decision-making. Point of Care TestingPulse Oximetry Pulse Ox % 96 On: Room air Interpretation Interpreted by me, Pulse oximetry normal Time 1211 RadiographyX-Ray L-Spine Text/Dict Note IMPRESSION:No acute fracture with normal alignment. Interpretation/Wet Read by Interpret - Radiologist Re-Evaluation MDM Free Text MDM NotesFree Text MDM Notesdiscussed resul t of x ray, diagnosis, home care and PCP follow up,verbalized understanding Re-Evaluation/ProgressRe-Evaluation/Progress Wilian e of Re-Eval 1320 Re-Eval Status Improved Plan Pos t Re-Eval Plan discharge ED CourseMedication(s) OrderedMedication(s) Ordered:Autonomic Drugs Sig/Homar Start time Last Medication Dose Route Stop Time Status Admin Cyclobenzaprine HCl 10 MG X1ED STA 11/05 1232 DC 03/ PO 11/05 1233 1239 Central Nervous System Agents Sig/Homar Start wilian e Last Medication Dose Route Stop Time Status Admi n Ketorolac 10 MG X1ED STA 11/05 1232 DC 03/11 Tromethamine PO 11/05 1233 1239 Patient Discharg e Departure Vital Signs/ConditionVital SignsFirst Documented: Result Date Time Pulse Ox 96 03/ 1209 B/P 140/85 03/ 1209 B/P Mean 103 / 1209 O2 Delivery Room air / 1209 Temp 36.9 03/11 1209 Pulse 82 03/ 1209 Resp 16 / 1209 Last Documented: Result Date Time Pulse Ox 96 03/ 1209 B/P 140/85 03/11 1209 B/P Mean 103 /11 1209 O2 Delivery Room air / 1209 Temp 36.9 03/11 1209 Pulse 82 03/ 1209 Resp 16 / 1209 All vital signs available at the time of this entry have been reviewed. Condition Improved, Stable Clinical ImpressionClinical ImpressionPrimary Impression: Back pain with radiculopathy Disposition DecisionDischarge )( Discharged to Home Yes )( Time 1321 )( Date 11/06/19 Discharge/Care PlanCounseled Regarding Diagnosis, Imaging studies, Prescriptions, Need for follow-upPrescriptionsnaprosyn, flexeril, tylenol #3Prescriptions Reviewed Risks, Benefits , Alternative treatment Discharge NoteI have spoke n with the patient and/or caregivers. I have explained the patient'scondition, diagnoses and treatment plan based on the information availabl e to meat this time. I have answered the patient's and/or caregiver's questions and addressed any concerns. The patient and/or caregivers have as good an understanding of the patient's diagnosis , condition and treatment plan as can beexpected a t this point. The vital signs have been stable. Th e patient's condition is stable and appropriate fo r discharge from the emergency department. The patient will pursue further outpatient evaluatio n with the primary care physician or other designated or consulting physician as outlined i n the discharge instructions. The patient and/or caregivers are agreeable to this planof care and follow-up instructions have been explained in detail. The patient and/or caregivers have received these instructions in written format an d have expressed an understanding of the discharge instructions. The patient and/or caregivers are aware that any significant change in condition o r worsening of symptoms should prompt an immediate return to this or the closest emergency department or a call to 911. Robson Osei. 11/08/19 204:HPI-Back Pain Under 40 GeneralDate/Time Seen by Provider 11/06/19 1211 Patient Discharge Departure Supervising Physicia n Note MidLv Saw Pt AloneI have reviewed the PA/ENVIRONMENTAL ENGINEERING MANAGER's note and plan of care. I was available for consultation as needed at all times during the patient's visit in the emergency department. I agree with the clinical impression, plan and disposition. at 1322 at 2041RPT #:[id number] OF REPORTEDEmeveterans health administration department [id number]:50:00E.[id number] elsa ilable for patient [id number]:41:41
[2023-07-27] MEDS ORDERED: KETOROLAC 30 MG/ML INJ ONE (22:39)
[2023-07-27] MEDS ORDERED: NA CHLORIDE 0.9% 1,000 ML ONE (22:39)
[2023-07-27 23:17] LABS: Absolute Lymphocytes (CBC) 1.1 K/uL (0.7-4.9); Hematocrit 47.4 % (39.6-49.0); Lymphocytes % 18.1 % (15.3-44.8); MCV 87.5 fL (80-100); MPV 7.4 fL (7.6-11.3); Platelets 186 thou/uL (152-406); RBC Red Blood Cell Count 5.42 M/uL (4.33-5.43)
[2023-07-27 23:20] LABS: Protime INR 1.09
[2023-07-27 23:34] LABS: Albumin 3.9 g/dL (3.4-5.0); Bilirubin Direct 0.1 mg/dL (0-0.2); Bilirubin Indirect, Calculated 0.3 mg/dL (0.2-0.8); Bilirubin Total 0.4 mg/dL (0.2-1.0); Magnesium 2.3 mg/dL (1.6-2.4); Potassium 3.5 mEq/L (3.5-5.1); Protein, Total 8.2 g/dL (6.4-8.2); Troponin High Sensitivity 5.1 pg/mL (<58.9)
[2023-07-28] MEDS ORDERED: ONDANSETRON 4 MG/2 ML VIAL ONE (02:43)
[2023-07-28] MEDS ORDERED: MORPHINE 4 MG/ML SYR ONE (02:43)
--- NOTE | 2023-07-28 03:22 | ER ---
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 Coronavirus screen: Vaccine status: Patient reports receiving the 2nd dose of the covid vaccine. Ebola Screen: Patient negative for fever greater than or equal to 101.5 degrees Fahrenheit, and additional compatible Ebola Virus Disease symptoms. Initial Sepsis Screen: Does the patient meet any 2 criteria? No. Patient's initial sepsis screen is negative. Does the patient have a suspected source of infection? No. Patient's initial sepsis screen is negative. Risk Assessment: Do you want to hurt yourself or someone else? Patient reports no desire to harm self or others. Onset of symptoms was July 27, 2023. 22:08 Method Of Arrival: Wheelchair kl 22:08 Acuity: LUIS 3 kl 22:11 Note pt reports pain began while changing tire. kl Triage Assessment: 22:12 General: Appears uncomfortable, Behavior is calm, cooperative. Pain: Complains of pain kl in anterior aspect of left upper chest Pain radiates to left clavicle Pain currently is 5 out of 10 on a pain scale. Quality of pain is described as burning. EENT: No signs and/or symptoms were reported regarding the EENT system. Neuro: No deficits noted. Cardiovascular: Reports chest pain, palpitations, Rhythm is sinus tachycardia. Respiratory: Reports shortness of breath at rest the patient has mild shortness of breath. GI: No deficits noted. No signs and/or symptoms were reported involving the gastrointestinal system. : No deficits noted. No signs and/or symptoms were reported regarding the genitourinary system. Derm: No deficits noted. No signs and/or symptoms reported regarding the dermatologic system. Historical: - Allergies: 22:12 No Known Allergies; kl - PMHx: 22:12 None; kl - PSHx: 22:12 acl repair; kl - Immunization history:: Adult Immunizations up to date. - Social history:: Smoking status: Reported history of juuling and/or vaping. Screenin:31 [facility] ED Fall Risk Assessment (Adult) History of falling in the last 3 months, km8 including since admission No falls in past 3 months (0 pts) Confusion or Disorientation No (0 pts) Intoxicated or Sedated No (0 pts) Impaired Gait No (0 pts) Mobility Assist Device Used No (0 pt) Altered Elimination No (0 pt) Score/Fall Risk Level 0 - 2 = Low Risk Oriented to surroundings, Maintained a safe environment, Educated pt \T\ family on fall prevention, incl call for assistance when getting out of bed, Assessed \T\ reinforced patient's understanding of fall precautions. Abuse screen: Denies threats or abuse. Denies injuries from another. Nutritional screening: No deficits noted. Tuberculosis screening: No symptoms or risk factors identified. Assessment: 22:31 General: Appears in no apparent distress. uncomfortable, Behavior is calm, cooperative, km8 appropriate for age. Pain: Complains of pain in anterior aspect of left upper chest Pain radiates to left shoulder Quality of pain is described as burning, Pain began suddenly, 30 min ago. Neuro: Vargas Agitation-Sedation Scale (RASS): 0 - Alert and Calm Level of Consciousness is awake, alert, obeys commands, Oriented to person, place, time, situation. Cardiovascular: Capillary refill < 3 seconds Patient's skin is warm and dry. Rhythm is sinus tachycardia Chest pain is described as mild, quality is burning, is located in left anterior radiates to left back began 30 minutes prior to arrival. Respiratory: Airway is patent Respiratory effort is even, unlabored, Respiratory pattern is regular, symmetrical, Denies shortness of breath at rest. GI: No signs and/or symptoms were reported involving the gastrointestinal system. : No signs and/or symptoms were reported regarding the genitourinary system. EENT: No signs and/or symptoms were reported regarding the EENT system. Derm: No signs and/or symptoms reported regarding the dermatologic system. Skin is intact, is healthy with good turgor, Skin is dry, Skin is pink, warm \T\ dry. normal, Skin temperature is warm. Musculoskeletal: No signs and/or symptoms reported regarding the musculoskeletal system. Range of motion: intact in all extremities. 07/28 00:00 Reassessment: Patient appears in no apparent distress at this time. No changes from km8 previously documented assessment. Patient and/or family updated on plan of care and expected duration. Pain level reassessed. Patient is alert, oriented x 3, equal unlabored respirations, skin warm/dry/pink. 01:00 Reassessment: Patient appears in no apparent distress at this time. No changes from km8 previously documented assessment. Patient and/or family updated on plan of care and expected duration. Pain level reassessed. Patient is alert, oriented x 3, equal unlabored respirations, skin warm/dry/pink. 03:00 Reassessment: No changes from previously documented assessment. Patient and/or family vc1 updated on plan of care and expected duration. Pain level reassessed. Patient is alert, oriented x 3, equal unlabored respirations, skin warm/dry/pink. Vital Signs: 07/27 10:24 BP 138 / 91; Pulse 95; Resp 18 S; Pulse Ox 97% on R/A; km8 22:08 BP 136 / 82; Pulse 102; Resp 18; Temp 97.3(TE); Pulse Ox 98% ; Weight 117.93 kg (R); Height 5 ft. 9 in. ; Pain 5/10; 23:00 BP 128 / 78; Pulse 89; Resp 16 S; Pulse Ox 96% on R/A; km8 23:30 BP 123 / 87; Pulse 85; Resp 16; Pulse Ox 97% ; km8 12 00:00 BP 130 / 74; Pulse 84; Resp 16; Pulse Ox 96% on R/A; km8 02:00 BP 107 / 76; Pulse 81; Resp 15; Pulse Ox 96% ; vc1 03:00 BP 103 / 76; Pulse 79; Resp 13; Pulse Ox 96% ; vc1 07/27 22:08 Body Mass Index 38.39 (117.93 kg, 175.26 cm) kl 22:08 Pain Scale: Adult Eaton Coma Score: 07/27 22:31 Eye Response: spontaneous(4). Motor Response: obeys commands(6). Verbal Response: km8 oriented(5). Total: 15. ED Course: 21:59 Patient arrived in ED. ag3 22:04 Sampson Del Valle PA is PHCP. cp 22:04 Atul Hanson MD is Attending Physician. cp 22:11 Triage completed. kl 22:14 EKG completed in triage. Results shown to . kl 22:24 Patito Zarate, RN is Primary Nurse. km8 22:31 Patient has correct armband on for positive identification. Bed in low position. Call km8 light in reach. Side rails up X 1. Client placed on continuous cardiac and pulse oximetry monitoring. NIBP monitoring applied. 22:31 No provider procedures requiring assistance completed. Patient maintains SpO2 km8 saturation greater than 95% on room air. 22:34 Arm band placed on right wrist. km8 22:50 XRAY Chest (1 view) In Process Unspecified. EDMS 23:04 Basic Metabolic Panel Sent. km8 23:04 CBC with Diff Sent. km8 23:04 D-Dimer Sent. km8 23:04 LFT's Sent. km8 23:04 Magnesium Sent. km8 23:04 PT-INR Sent. km8 23:04 Troponin HS Sent. km8 23:05 Inserted saline lock: 22 gauge in left antecubital area, using aseptic technique. Blood km8 collected. 07/28 00:37 Radiology exam delayed due to IV insertion attempt and/or patient not having eh4 appropriate IV at this time. 02:10 CT Chest For PE Angio In Process Unspecified. EDMS 03:21 Dusty Schwab MD is Referral Physician. cp 03:29 Provided Education on: d/c teaching. km8 03:29 IV discontinued, intact, bleeding controlled, No redness/swelling at site. Pressure km8 dressing applied. Administered Medications: 07/27 23:04 Drug: Ketorolac IVP 15 mg IVP once Route: IVP; Site: left antecubital; km8 07/28 00:26 Follow up: Response: No adverse reaction km8 07/27 23:04 Drug: NS 0.9% IV 1000 ml IV at 1 bolus Per protocol; 1000 mL bolus Route: IV; Rate: 1 km8 bolus; Site: left antecubital; 07/28 00:26 Follow up: IV Status: Completed infusion km8 02:33 Drug: morphine IVP or IV 4 mg IVP once over 4 mins Route: IVP; Infused Over: 4 mins; km8 Site: left antecubital; 03:00 Follow up: Response: No adverse reaction; Pain is decreased km8 02:33 Drug: Ondansetron IVP 4 mg IVP once; over 2 minutes Route: IVP; Site: left antecubital; km8 03:30 Follow up: Response: No adverse reaction km8 Medication: 07/27 22:31 VIS not applicable for this client. km8 Outcome: 07/28 03:21 Discharge ordered by . warren 03:29 Discharged to home via wheelchair, with significant other, km8 03:29 Condition: good 03:29 Discharge instructions given to patient, Instructed on discharge instructions, follow up and referral plans. medication usage, Demonstrated understanding of instructions, follow-up care, medications, Prescriptions given X 1, 03:30 Patient left the ED. km8 Signatures: Dispatcher [employer] EDMS Lilliam Hidalgo RN RN Sampson Booker PA PA Tyra Webb 3 Naida Quevedo RN RN 1 Tenisha Zheng 4 Patito Zarate RN RN km8 Corrections: (The following items were deleted from the chart) 07/27 22:35 22:31 Pain: Complains of pain in anterior aspect of left upper chest Pain radiates to km8 left shoulder Pain began suddenly, 30 min ago. km8 22:35 22:31 Cardiovascular: Capillary refill < 3 seconds Patient's skin is warm and dry. km8 Rhythm is sinus tachycardia Chest pain is described as mild, is located in left anterior radiates to left back began 30 minutes prior to arrival km8
--- NOTE | 2023-07-28 03:22 | EDPHYS ---
Physician Documentation [facility] Name: Jose R Villela Age: 37 yrs Sex: Male : 1985 Arrival Date: 07/27/2023 Time: 21:51 Bed 3 Private MD: ED Physician Atul Hanson HPI: 07/27 22:25 This 37 yrs old Male presents to ER via Wheelchair with complaints of Chest Pain. cp 22:25 The patient or guardian reports chest pain that is located primarily in the anterior cp chest wall, left. 22:25 The pain radiates to the left shoulder, left back. cp 22:25 Associated signs and symptoms: Pertinent positives: shortness of breath, Pertinent cp negatives: abdominal pain, cough, lower extremity pain, lower extremity swelling, syncope. 22:25 The chest pain is described as constant. cp Historical: - Allergies: 22:12 No Known Allergies; kl - PMHx: 22:12 None; kl - PSHx: 22:12 acl repair; kl - Immunization history:: Adult Immunizations up to date. - Social history:: Smoking status: Reported history of juuling and/or vaping. ROS: 22:30 Constitutional: Negative for body aches, chills, fever, poor PO intake, cp 22:30 Cardiovascular: Positive for chest pain, Negative for edema, palpitations, cp 22:30 Respiratory: Positive for cough, shortness of breath, Negative for wheezing, 22:30 Eyes: Negative for injury, pain, redness, and discharge, cp 22:30 ENT: Negative for drainage from ear(s), ear pain, sore throat, difficulty swallowing, difficulty handling secretions, 22:30 Abdomen/GI: Negative for abdominal pain, vomiting, diarrhea, constipation, 22:30 Back: Negative for pain at rest, pain with movement, cp 22:30 Neuro: Negative for altered mental status, dizziness, headache, numbness, weakness, 22:30 All other systems are negative, Exam: 22:12 ECG was reviewed by the Attending Physician. cp 22:33 Constitutional: The patient appears in no acute distress, alert, awake, cp non-diaphoretic, non-toxic, well developed, well nourished, obese, uncomfortable, 22:33 Head/Face: Normocephalic, atraumatic. cp 22:33 Eyes: Periorbital structures: appear normal, Conjunctiva: normal, no exudate, no injection, Sclera: no appreciated abnormality, Lids and lashes: appear normal, bilaterally, 22:33 ENT: External ear(s): are unremarkable, Nose: is normal, Mouth: Lips: moist, Oral mucosa: pink and intact, moist, Posterior pharynx: is normal, airway is patent, no erythema, no exudate, 22:33 Neck: ROM/movement: is normal, is supple, without pain, no range of motions limitations, 22:33 Chest/axilla: Inspection: normal, Palpation: crepitus, is not appreciated, tenderness, is not appreciated, 22:33 Cardiovascular: Rate: tachycardic, Rhythm: regular, Edema: is not appreciated, JVD: is not appreciated, 22:33 Respiratory: the patient does not display signs of respiratory distress, Respirations: normal, no use of accessory muscles, no retractions, labored breathing, is not present, Breath sounds: are clear throughout, no decreased breath sounds, no stridor, no wheezing, 22:33 Abdomen/GI: Inspection: abdomen appears normal, Palpation: abdomen is soft and non-tender, in all quadrants, 22:33 Back: ROM is normal, 22:33 Neuro: Orientation: to person, place \T\ time. Mentation: is normal, Motor: moves all fours, strength is normal, Sensation: no obvious gross deficits, 07/28 02:33 ECG was reviewed by the Attending Physician. cp Vital Signs: 07/27 10:24 BP 138 / 91; Pulse 95; Resp 18 S; Pulse Ox 97% on R/A; km8 22:08 BP 136 / 82; Pulse 102; Resp 18; Temp 97.3(TE); Pulse Ox 98% ; Weight 117.93 kg (R); kl Height 5 ft. 9 in. ; Pain 5/10; 23:00 BP 128 / 78; Pulse 89; Resp 16 S; Pulse Ox 96% on R/A; km8 23:30 BP 123 / 87; Pulse 85; Resp 16; Pulse Ox 97% ; km8 12 00:00 BP 130 / 74; Pulse 84; Resp 16; Pulse Ox 96% on R/A; km8 02:00 BP 107 / 76; Pulse 81; Resp 15; Pulse Ox 96% ; vc1 03:00 BP 103 / 76; Pulse 79; Resp 13; Pulse Ox 96% ; vc1 07/27 22:08 Body Mass Index 38.39 (117.93 kg, 175.26 cm) kl 22:08 Pain Scale: Adult kl Tanya Coma Score: 07/27 22:31 Eye Response: spontaneous(4). Motor Response: obeys commands(6). Verbal Response: km8 oriented(5). Total: 15. MDM: 22:25 Patient medically screened. 23:00 Differential diagnosis: abnormal EKG, acute myocardial infarction, acute pericarditis, cp anxiety, chest wall pain, pericarditis, pleurisy, pneumonia, pneumothorax, pulmonary embolus, thoracic aortic disection. 07/28 03:21 Data reviewed: vital signs, nurses notes, lab test result(s), EKG, radiologic studies, cp CT scan, and as a result, I will discharge patient. 03:21 I considered the following discharge prescriptions or medication management in the emergency department Medications were administered in the Emergency Department. See MAR. Independent interpretation of the following test(s) in the Emergency Department EKG: See my EKG interpretation above. Care significantly affected by the following chronic conditions: Obesity. 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 Response to treatment: the patient's symptoms have markedly improved after treatment, and as a result, I will discharge patient. Special discussion: Based on the patient's history, exam, and Dx evaluation, there is no indication for emergent intervention or inpatient Tx. It is understood by the patient/guardian that if the Sx's persist or worsen they need to return immediately for re-evaluation. 07/27 22:23 Order name: Basic Metabolic Panel; Complete Time: 00:03 07/27 22:23 Order name: CBC with Diff; Complete Time: 00:03 07/27 22:23 Order name: D-Dimer; Complete Time: 00:03 cp 07/28 00:04 Interpretation: Reviewed. 07/27 22:23 Order name: LFT's; Complete Time: 00:03 cp 07/27 22:23 Order name: Magnesium; Complete Time: 00:03 cp 07/27 22:23 Order name: PT-INR; Complete Time: 00:03 cp 07/27 22:23 Order name: Troponin HS; Complete Time: 00:03 cp 07/28 02:20 Order name: Troponin High Sensitivity; Complete Time: 03:21 cp 07/28 03:21 Interpretation: Reviewed. 07/27 22:23 Order name: XRAY Chest (1 view) 07/28 00:04 Order name: CT Chest For PE Angio 07/27 22:23 Order name: EKG; Complete Time: 22:24 cp 07/27 22:23 Order name: Cardiac monitoring; Complete Time: :31 cp 07/27 22:23 Order name: EKG - Nurse/Tech; Complete Time: 22:31 cp 07/27 22:23 Order name: IV Saline Lock; Complete Time: 23:04 cp 07/27 22:23 Order name: Labs collected and sent; Complete Time: 23:04 cp 07/27 22:23 Order name: O2 Per Protocol; Complete Time: 22:31 cp 07/27 22:23 Order name: O2 Sat Monitoring; Complete Time: 22:31 cp 07/28 02:20 Order name: EKG - Nurse/Tech; Complete Time: 02:31 cp EC/30 22:12 Rate is 103 beats/min. Rhythm is regular. OK interval is normal. QRS interval is cp normal. QT interval is normal. T waves are Inverted in leads III, aVF. Interpreted by me. Reviewed by me. 07/28 02:33 Rate is 78 beats/min. Rhythm is regular. OK interval is normal. QRS interval is cp prolonged at 102 msec. QT interval is normal. T waves are Inverted in leads aVL, aVR, V2. Interpreted by me. Reviewed by me. Administered Medications: 07/27 23:04 Drug: Ketorolac IVP 15 mg IVP once Route: IVP; Site: left antecubital; km8 07/28 00:26 Follow up: Response: No adverse reaction [facility] 07/27 23:04 Drug: NS 0.9% IV 1000 ml IV at 1 bolus Per protocol; 1000 mL bolus Route: IV; Rate: 1 km8 bolus; Site: left antecubital; 07/28 00:26 Follow up: IV Status: Completed infusion 02:33 Drug: morphine IVP or IV 4 mg IVP once over 4 mins Route: IVP; Infused Over: 4 mins; km8 Site: left antecubital; 03:00 Follow up: Response: No adverse reaction; Pain is decreased 02:33 Drug: Ondansetron IVP 4 mg IVP once; over 2 minutes Route: IVP; Site: left antecubital; 03:30 Follow up: Response: No adverse reaction Disposition Summary: 07/28/23 03:21 Discharge Ordered Notes: Location: Home cp Problem: new cp Symptoms: have improved cp Condition: Stable cp Diagnosis - Chest pain, unspecified cp Followup: cp - With: Dusty Schwab MD - When: 1 week - Reason: Recheck today's complaints Discharge Instructions: - Discharge Summary Sheet cp - Nonspecific Chest Pain, Adult cp - Aspirin and Your Heart cp - Managing Stress, Adult cp Forms: - Medication Reconciliation Form cp - Thank You Letter cp - Antibiotic Education cp - Prescription Opioid Use cp - Patient Portal Instructions cp - Leadership Thank You Letter cp - Work release form km8 Prescriptions: - Diclofenac Sodium 75 mg Oral Tablet Sustained Release - take 1 tablet ORAL route 2 times per day; 30 tablet; Refills: 0, Product cp Selection Permitted Signatures: Dispatcher [employer] Lilliam Valentin, RN RN Sampson Booker PA PA cp Patito Zarate RN RN km8 Corrections: (The following items were deleted from the chart) 02:58 07/27 22:25 The pain radiates to the left shoulder, cp cp
[2023-07-28 03:35] VITALS: TEMP 97.3
[2023-07-28 03:40] VITALS: O2SAT 96
[2023-07-28 03:43] VITALS: BP 103/76
--- NOTE | 2023-07-28 14:46 | EKG ---
Test Date: 2023-07-28 Test Time: 02:28:12 Cell Preparer: KEYONNA MEASUREMENT RESULTS: Intervals: Rate: 78 SD: 164 QRSD: 102 QT: 388 QTc: 442 [place]: P: 36 SD: 164 QRS: -4 T: 57 INTERPRETIVE STATEMENTS: Normal sinus rhythm Low voltage QRS Cannot rule out Anterior infarct, age undetermined Abnormal ECG Compared to ECG 07/25/2019 15:49:12 Low QRS voltage now present Myocardial infarct finding now present Electronically Signed On 07-28-23 14:45:12 ASSEMBLY LOADER by Dusty Schwab
--- NOTE | 2023-07-28 14:47 | EKG ---
Test Date: 2023-07-27 Test Time: 22:05:46 Spiral Winder: NITO MEASUREMENT RESULTS: Intervals: Rate: 103 WA: 152 QRSD: 98 QT: 334 QTc: 437 [place]: P: 24 WA: 152 QRS: 83 T: -11 INTERPRETIVE STATEMENTS: Sinus tachycardia T wave abnormality, consider inferior ischemia Abnormal ECG Compared to ECG 07/25/2019 15:49:12 T-wave abnormality now present Possible ischemia now present Sinus rhythm no longer present Electronically Signed On 07-28-23 14:45:19 STORE STOCK HELP by Dusty Schwab
--- NOTE | 2023-07-28 21:53 | RAD REPORT ---
EXAM DESCRIPTION: RAD - Chest Single View - 07/27/2023 10:48 pm CLINICAL HISTORY: 37-year-old male with chest pain. TECHNIQUE: Single view, AP portable chest was obtained. COMPARISON: None. FINDINGS: Unremarkable cardiac and mediastinal silhouette. Heart size is normal. Low lung volumes grossly clear without focal opacity, pneumothorax or pleural effusions. The visual ized bones are within normal limits. IMPRESSION: No acute cardiopulmonary abnormalities. Electronically signed by: Salma Mccracken MD 07/27/2023 11:15 PM SUPERVISOR PATCHING Due to temporary technical issues with the PACS/Fluency reporting system, reports are being signed by the in house radiologists without review as a courtesy to insure prompt reporting. The interpreting radiologist is fully responsible for the content of the report.
--- NOTE | 2023-07-28 21:57 | RAD REPORT ---
EXAM DESCRIPTION: CT - Chest For Pe Angio - 07/28/2023 7:21 am CLINICAL HISTORY: The patient is 37 years old and is Male; CHEST PAIN TECHNIQUE: Axial computed tomographic angiography images of the chest with intravenous contrast. S agittal and coronal reformatted images were created and reviewed. This CT exam was performed using one or more of the following dose reduction techniques: automated exposure control, adjustment of t he mA and/or kV according to patient size, and/or use of iterative reconstruction technique. MIP reconstructed images were created and reviewed. COMPARISON: No relevant prior studies available. FINDINGS: PULMONARY ARTERIES: Unremarkable. No pulmonary embolism. AORTA: No acute findings. No thoracic aortic aneurysm. LUNGS: Unremarkable. No mass. No consolidation. PLEURAL SPACE: Unremarkable. No significant effusion. No pneumothorax. HEART: Unremarkable. No cardiomegaly. No significant pericardial effusion. No evidence of R V dysfunction. BONES/JOINTS: No acute fracture. No dislocation. SOFT TISSUES: Unremarkable. LYMPH NODES: Unremarkable. No enlarged lymph nodes. IMPRESSION: Normal chest CTA. No pulmonary embolism. Electronically signed by: Leonila Ledbetter MD 07/28/2023 02:21 AM OCEAN FISHING GUIDE Due to temporary technical issues with the PACS/Fluency reporting system, reports are being signed by the in house radiologists without review as a courtesy to insure prompt reporting. The interpreting radiologist is fully responsible for the content of the report.
== END 2023-07-28 03:30 | disposition home or self-care (01) ==
LOC: ER 21:51
DX: R07.89 Other chest pain (principal)
CPT/HCPCS: 36415; 71045; 71275; 80048; 80076; 83735; 84484; 85025; 85379; 85610; 93005; 96361; 96374; 96375; 99285; J2405; J7030; Q9967